=== PATIENT | male | born 1965 | race Caucasian/White ===

== ENCOUNTER 2016-12-07 09:04 | Inpatient (IN) | payer OTHER ==
[~2016-12-07] VITALS: Ht 177.8 cm; Wt 80.7 kg
[2016-12-07] VITALS (10 sets, daily range): BP systolic 101–123; BP diastolic 59–70; PULSE 69–87; RESP 15–18; TEMP 97.6–100.1; O2SAT 95–100
[2016-12-07] MEDS ORDERED: SODIUM CHLOR 0.9% 1000 ML INJ 1,000 ML IV ONE ×2 (09:40→14:30)
[2016-12-07] MEDS ORDERED: DEXAMETHASONE SOD PHOS 20 MG/5 ML VIAL IV PUSH ONE (09:45)
[2016-12-07] MEDS ORDERED: SODIUM CHLORIDE 0.9% FLUSH 5 ML FLUSH IVF PRN (09:45)
[2016-12-07] MEDS ORDERED: diphenhydrAMINE HCL 50 MG/ML VIAL IV PUSH ONE (09:45)
[2016-12-07] MEDS ORDERED: METOCLOPRAMIDE HCL 10 MG/2 ML VIAL IV PUSH ONE (09:45)
[2016-12-07 10:19] LABS: AUTOMATED NEUTROPHIL # 4.1 TH/MM3 (1.8-7.7); BASOPHIL % 0.6 % (0.0-2.0); EOSINOPHIL % 0.3 % (0.0-4.0); HEMATOCRIT 39.4 % (39.0-51.0); HEMO FLAGS DIFF FINAL; LYMPH % 15.2 % (9.0-44.0); LYMPHOCYTE # 0.9 TH/MM3 (1.0-4.8); MEAN CELL VOLUME 85.6 FL (80.0-100.0); MEAN CORPUSCULAR HEMOGLOBIN 29.7 PG (27.0-34.0); MEAN CORPUSCULAR HGB CONC 34.7 % (32.0-36.0); MONO % 12.1 % (0.0-8.0); NEUT % 71.8 % (16.0-70.0); PLATELET COUNT 171 TH/MM3 (150-450); RED BLOOD COUNT 4.61 MIL/MM3 (4.50-5.90); RED CELL DISTRIBUTION WIDTH 13.4 % (11.6-17.2); WHITE BLOOD COUNT 5.7 TH/MM3 (4.0-11.0)
[2016-12-07 10:27] LABS: APTT (PATIENT) 30.6 SEC (24.3-30.1); PROTHROMBIN TIME - PATIENT 11.1 SEC (9.8-11.6)
--- NOTE | 2016-12-07 10:32 | PD ---
HPI Chief Complaint: Fever Time Seen by Provider: 09:31 Travel History International Travel<30 days: Yes Contact w/Intl Traveler<30days: Yes Name of Country Traveled to: [facility] Traveled to known affect area: Yes History of Present Illness HPI Patient is a 51-year-old male who presents emergency room with complaints of fevers for the past 5 days. Patient reports that he came home from [facility] last night, reports that he has been having increased fevers and chills at night sweats for the past 5 days. Patient reports that he had been to [facility] for about a month but was in the city on the and got "bit up" pretty badly. Reports that he was not wearing any bug sprat at that time. Reports that he went to the local hospital when his symptoms began - reports that they ordered labs and told him that everything was normal and sent him home. Patient was concerned as he would have tmax of 103 at some times, so they ended their trip early and came home to [facility]. Patient reports that he has been having nonspecific headaches, body aches and myalgias, reports concern for possible mosquito illness. [facility] Past Medical History Medical History: Denies Significant Hx ?: Not Past Surgical History Surgical History: No Previous Surgery Social History Alcohol Use: Yes (occ) Tobacco Use: No Substance Use: No Allergies-Medications (Allergen,Severity, Reaction): Coded Allergies: No Known Allergies (Unverified , 12/07/16) Reported Meds & Prescriptions Reported Meds & Active Scripts Active No Active Prescriptions or Reported Medications Review of Systems General / Constitutional: Positive: Fever Eyes: No: Visual changes HENT: Positive: Headaches, No: Neck Pain Cardiovascular: No: Chest Pain or Discomfort Respiratory: Positive: Cough, No: Shortness of Breath Gastrointestinal: No: Abdominal Pain Genitourinary: No: Dysuria Musculoskeletal: Positive: Myalgias, Arthralgias, No: Pain Skin: No Rash Neurologic: No: Weakness Psychiatric: No: Depression Endocrine: No: Polydipsia Hematologic/Lymphatic: No: Easy Bruising Physical Exam Narrative GENERAL: No acute distress, nontoxic SKIN: Warm and dry. No petechia or purpura on exam. NO rash HEAD: Atraumatic. Normocephalic. EYES: Pupils equal and round. No scleral icterus. No injection or drainage. ENT: No nasal bleeding or discharge. Mucous membranes pink and moist. NECK: Trachea midline. No JVD. CARDIOVASCULAR: Regular rate and rhythm. No murmur appreciated. RESPIRATORY: No accessory muscle use. Clear to auscultation. Breath sounds equal bilaterally. GASTROINTESTINAL: Abdomen soft, non-tender, nondistended. Hepatic and splenic margins not palpable. MUSCULOSKELETAL: No obvious deformities. No clubbing. No cyanosis. No edema. NEUROLOGICAL: Awake and alert. No obvious cranial nerve deficits. Motor grossly within normal limits. Normal speech. negative for Kernig's and Babinski 's sign. PSYCHIATRIC: Appropriate mood and affect; insight and judgment normal. Data Data Last Documented VS Vital Signs Date Time Temp Pulse Resp B/P Pulse Ox O2 Delivery O2 Flow Rate FiO2 12/07/16 14:33 69 17 101/60 100 Room Air 12/07/16 13:39 99.0 Orders Complete Blood Count With Diff (12/07/16 09:40) Comprehensive Metabolic Panel (12/07/16 09:40) Prothrombin Time / Inr (Pt) (12/07/16 09:40) Act Partial Throm Time (Ptt) (12/07/16 09:40) Blood Culture (12/07/16 09:40) Ecg Monitoring (12/07/16 09:40) Iv Access Insert/Monitor (12/07/16 09:40) Oximetry (12/07/16 09:40) Sodium Chloride 0.9% Flush (Ns Flush) (12/07/16 09:45) Sodium Chlor 0.9% 1000 Ml Inj (Ns 1000 M (12/07/16 09:40) Influenzae A/B Antigen (12/07/16 09:40) Malaria (12/07/16 09:40) Dexamethasone Inj (Decadron Inj) (12/07/16 09:45) Metoclopramide Inj (Reglan Inj) (12/07/16 09:45) Diphenhydramine Inj (Benadryl Inj) (12/07/16 09:45) Ct Brain W/O Iv Contrast(Rout) (12/07/16 11:33) Csf Cell Count + Differential (12/07/16 13:46) Glucose, Csf (12/07/16 13:46) Total Protein, Csf (12/07/16 13:46) Csf Cryptococcus Antigen (12/07/16 13:46) Sodium Chlor 0.9% 1000 Ml Inj (Ns 1000 M (12/07/16 14:30) Csf Culture And Gram Stain (12/07/16 15:07) Consult Infectious Disease (12/07/16 ) Drug Screen, Random Urine (12/07/16 16:28) Rickettsia Abs (12/07/16 16:37) (Hub Use Only)Inp Phy Cons/Ref (12/07/16 ) Labs Laboratory Tests Test 12/07/16 12/07/16 09:55 14:20 White Blood Count 5.7 TH/MM3 Red Blood Count 4.61 MIL/MM3 Hemoglobin 13.7 GM/DL Hematocrit 39.4 % Mean Corpuscular Volume 85.6 FL Mean Corpuscular Hemoglobin 29.7 PG Mean Corpuscular Hemoglobin 34.7 % Concent Red Cell Distribution Width 13.4 % Platelet Count 171 TH/MM3 Mean Platelet Volume 7.4 FL Neutrophils (%) (Auto) 71.8 % Lymphocytes (%) (Auto) 15.2 % Monocytes (%) (Auto) 12.1 % Eosinophils (%) (Auto) 0.3 % Basophils (%) (Auto) 0.6 % Neutrophils # (Auto) 4.1 TH/MM3 Lymphocytes # (Auto) 0.9 TH/MM3 Monocytes # (Auto) 0.7 TH/MM3 Eosinophils # (Auto) 0.0 TH/MM3 Basophils # (Auto) 0.0 TH/MM3 CBC Comment DIFF FINAL Differential Comment Prothrombin Time 11.1 SEC Prothromb Time International 1.0 RATIO Ratio Activated Partial 30.6 SEC Thromboplast Time Sodium Level 138 MEQ/L Potassium Level 3.8 MEQ/L Chloride Level 104 MEQ/L Carbon Dioxide Level 25.5 MEQ/L Anion Gap 9 MEQ/L Blood Urea Nitrogen 8 MG/DL Creatinine 1.08 MG/DL Estimat Glomerular Filtration 73 ML/MIN Rate Random Glucose 105 MG/DL Calcium Level 8.4 MG/DL Total Bilirubin 0.5 MG/DL Aspartate Amino Transf 15 U/L (AST/SGOT) Alanine Aminotransferase 30 U/L (ALT/SGPT) Alkaline Phosphatase 56 U/L Total Protein 6.6 GM/DL Albumin 3.2 GM/DL CSF Volume (Tube 1) 2.0 ML CSF Supernatant Color (tube 1) CLEAR CSF Gross Blood (Tube 1) 0 CSF Volume (Tube 2) 1.6 ML CSF Supernatant Color (tube 2) CLEAR CSF Gross Blood (Tube 2) 0 CSF Volume (Tube 3) 1.5 ML CSF Supernatant Color (tube 3) CLEAR CSF Gross Blood (Tube 3) 0 CSF Volume (Tube 4) 2.5 ML CSF Supernatant Color (tube 4) CLEAR CSF Gross Blood (Tube 4) 0 CSF WBC (Tube 4) 11 /MM3 CSF RBC (Tube 4) 8 /MM3 CSF Neutrophils 2 % CSF Lymphocytes 32 % CSF Monocytes 66 % CSF Glucose 62 MG/DL CSF Total Protein 35.9 MG/DL MDM Medical Decision Making Medical Screen Exam Complete: Yes Emergency Medical Condition: Yes Interpretation(s) EKG at 1641, NSR at 77bpm, qt/qtc: 373/405, no acute st or t wave changes Vital Signs Date Time Temp Pulse Resp B/P Pulse Ox O2 Delivery O2 Flow Rate FiO2 12/07/16 09:50 99 Room Air 12/07/16 09:31 100.1 82 15 114/69 95 Room Air 12/07/16 09:26 16 12/07/16 09:13 100.1 87 18 112/70 97 Differential Diagnosis Malaria, meningitis, pneumonia, influenza, ZIKA virus, viral syndrome, dengue fever, chikugunya, yellow fever Narrative Course Patient is a 51-year-old male who presents to emergency room for evaluation of fevers, chills, myalgias, headache, for the past 5 days. Patient reports that he was in [facility] for the past month, reports that on the he was bit by mosquitoes and reports that he is concerned for possible zika vs malaria. Overall, patient is nontoxic, patient with no meningismus on evaluation. Patient with negative Kernig and Babinski sign. Plan to obtain CT of the head, will treat for cephalgia. Labs as well as x-ray chest ordered. Malaria screening ordered. We'll continue to monitor patient. CBC WBC 5.7 Hemoglobin 13.7 Hematocrit 39.4 Platelets 171 BMP Sodium 138 Chloride 104 Potassium 3.8 Carbon dioxide 25.[address] head: no acute intracranial findings Malaria smear: preliminary neg for blood parasites Influenza: neg for influenza A & B Patient with headache and fever, discussed need for LP for evaluation of possible meningitis. LP Risks and benefits reviewed with patient - patient gives oral and verbal consent for LP. case reviewed with Dr Joe, request that patient be admitted overnight for further workup Critical Care Narrative Aggregate critical care time was 45 minutes. Time to perform other separately billable procedures was not included in the critical care time. My time did not include minutes spent treating any other patients simultaneously or on activities that did not directly contribute to the patient's treatment. The services I provided to this patient were to treat and/or prevent clinically significant deterioration that could result in: , decompensation, deterioration I provided critical care services requiring my management, as noted below: Chart data review, documentation time, medication orders and management, vital sign assessments/reviewing monitor data, ordering and reviewing lab tests, ordering and interpreting/reviewing x-rays and diagnostic studies, care of the patient and discussion of the patient with the admitting physicians. Physician Communication Physician Communication case reviewed with ID: Dr. Bowman case reviewed with family practice resident: Dr Richards - accepts pt to service Diagnosis Primary Impression: Fever of unknown origin Admitting Information Admitting Physician Requests: Observation Patient Instructions: General Instructions Scripts No Active Prescriptions or Reported Meds Sabine Ruffin DO Dec 07, 2016 10:32
[2016-12-07 10:39] LABS: ALT (GPT) 30 U/L (12-78); ANION GAP 9 MEQ/L (5-15); AST (GOT) 15 U/L (15-37); BICARBONATE 25.5 MEQ/L (21.0-32.0); BLOOD UREA NITROGEN 8 MG/DL (7-18); CHLORIDE 104 MEQ/L (98-107); GLOMERULAR FILTRATION RATE 73 ML/MIN (>89); POTASSIUM 3.8 MEQ/L (3.5-5.1); SODIUM (NA) 138 MEQ/L (136-145)
[2016-12-07 10:41] LABS: ALKALINE PHOSPHATASE 56 U/L (45-117); TOTAL BILIRUBIN ADULT 0.5 MG/DL (0.2-1.0)
--- NOTE | 2016-12-07 12:20 | RADRPT ---
EXAM DATE/TIME: 12/07/2016 12:08 [place] COMPARISON: No previous studies available for comparison. INDICATIONS : Fever with neck and back pain, cephalgia. RADIATION DOSE: 46.40 CTDIvol (mGy) MEDICAL HISTORY : None SURGICAL HISTORY : None. ENCOUNTER: Initial ACUITY: 1 week PAIN SCALE: 5/10 LOCATION: neck TECHNIQUE: Multiple contiguous axial images were obtained of the head. Using automated exposure control and adj ustment of the mA and/or kV according to patient size, radiation dose was kept as low as reasonably a chievable to obtain optimal diagnostic quality images. FINDINGS: CEREBRUM: The ventricles are normal for age. No evidence of midline shift, mass lesion, hemorrhage or acute in farction. No extra-axial fluid collections are seen. POSTERIOR FOSSA: The cerebellum and brainstem are intact. The 4th ventricle is midline. The cerebellopontine angle i s unremarkable. EXTRACRANIAL: The visualized portion of the orbits is intact. SKULL: The calvaria is intact. No evidence of skull fracture. CONCLUSION: Unremarkable exam. Bean Stevenson MD on December 07, 2016 at 12:18 Board Certified Radiologist. This report was verified electronically.
--- NOTE | 2016-12-07 14:32 | PD ---
Physical Exam Date Seen by Provider: Dec 07, 2016 Time Seen by Provider: 14:22 Data Data Last Documented VS Vital Signs Date Time Temp Pulse Resp B/P Pulse Ox O2 Delivery O2 Flow Rate FiO2 12/07/16 13:39 99.0 78 16 120/68 100 Room Air Orders Complete Blood Count With Diff (12/07/16 09:40) Comprehensive Metabolic Panel (12/07/16 09:40) Prothrombin Time / Inr (Pt) (12/07/16 09:40) Act Partial Throm Time (Ptt) (12/07/16 09:40) Blood Culture (12/07/16 09:40) Ecg Monitoring (12/07/16 09:40) Iv Access Insert/Monitor (12/07/16 09:40) Oximetry (12/07/16 09:40) Sodium Chloride 0.9% Flush (Ns Flush) (12/07/16 09:45) Sodium Chlor 0.9% 1000 Ml Inj (Ns 1000 M (12/07/16 09:40) Influenzae A/B Antigen (12/07/16 09:40) Malaria (12/07/16 09:40) Dexamethasone Inj (Decadron Inj) (12/07/16 09:45) Metoclopramide Inj (Reglan Inj) (12/07/16 09:45) Diphenhydramine Inj (Benadryl Inj) (12/07/16 09:45) Ct Brain W/O Iv Contrast(Rout) (12/07/16 11:33) Csf Cell Count + Differential (12/07/16 13:46) Glucose, Csf (12/07/16 13:46) Total Protein, Csf (12/07/16 13:46) Csf Cryptococcus Antigen (12/07/16 13:46) Labs Laboratory Tests Test 12/07/16 09:55 White Blood Count 5.7 TH/MM3 Red Blood Count 4.61 MIL/MM3 Hemoglobin 13.7 GM/DL Hematocrit 39.4 % Mean Corpuscular Volume 85.6 FL Mean Corpuscular Hemoglobin 29.7 PG Mean Corpuscular Hemoglobin 34.7 % Concent Red Cell Distribution Width 13.4 % Platelet Count 171 TH/MM3 Mean Platelet Volume 7.4 FL Neutrophils (%) (Auto) 71.8 % Lymphocytes (%) (Auto) 15.2 % Monocytes (%) (Auto) 12.1 % Eosinophils (%) (Auto) 0.3 % Basophils (%) (Auto) 0.6 % Neutrophils # (Auto) 4.1 TH/MM3 Lymphocytes # (Auto) 0.9 TH/MM3 Monocytes # (Auto) 0.7 TH/MM3 Eosinophils # (Auto) 0.0 TH/MM3 Basophils # (Auto) 0.0 TH/MM3 CBC Comment DIFF FINAL Differential Comment Prothrombin Time 11.1 SEC Prothromb Time International 1.0 RATIO Ratio Activated Partial 30.6 SEC Thromboplast Time Sodium Level 138 MEQ/L Potassium Level 3.8 MEQ/L Chloride Level 104 MEQ/L Carbon Dioxide Level 25.5 MEQ/L Anion Gap 9 MEQ/L Blood Urea Nitrogen 8 MG/DL Creatinine 1.08 MG/DL Estimat Glomerular Filtration 73 ML/MIN Rate Random Glucose 105 MG/DL Calcium Level 8.4 MG/DL Total Bilirubin 0.5 MG/DL Aspartate Amino Transf 15 U/L (AST/SGOT) Alanine Aminotransferase 30 U/L (ALT/SGPT) Alkaline Phosphatase 56 U/L Total Protein 6.6 GM/DL Albumin 3.2 GM/DL [facility] Supervised Visit with YUE: Yes Narrative Course Dr. Ruffin initially saw this patient. Please see her note for full H&P. Briefly, this is a 51-year-old male who presents to the ED for evaluation of headache after traveling to [facility]. Dr. Ruffin supervised as I I performed the lumbar puncture on this patient. Please see my procedure note for details. Patient tolerated procedure well. He was placed in supine position on the ED stretcher post procedure. Dr. Ruffin maintains care this patient. Please see her note for disposition. Procedures Procedure Narrative LUMBAR PUNCTURE: The patient was placed in upright position. The lumbar area of the back was prepped with Betadine and sterilely draped. The L4-L5 interspace was infiltrated with 1% lidocaine plain. Number 20 gauge LP needle was placed in the interspace. Opening pressure deferred. Number 5 milliliters of clear CSF were obtained. Patient tolerated procedure well. Scripts No Active Prescriptions or Reported Meds Jessica Hare Dec 07, 2016 14:32
[2016-12-07 15:36] LABS: GROSS BLOOD TUBE #1 0 (0); GROSS BLOOD TUBE #2 0 (0); GROSS BLOOD TUBE #3 0 (0); GROSS BLOOD TUBE #4 0 (0); SUPERNATE COLOR TUBE #1 CLEAR (CLEAR); SUPERNATE COLOR TUBE #2 CLEAR (CLEAR); SUPERNATE COLOR TUBE #3 CLEAR (CLEAR); SUPERNATE COLOR TUBE #4 CLEAR (CLEAR); VOLUME TUBE # 2 1.6 ML; VOLUME TUBE # 3 1.5 ML; VOLUME TUBE # 4 2.5 ML; WBC TUBE #4 11 /MM3 (0-10)
[2016-12-07 16:31] LABS: CSF LYMPHOCYTES 32 %; CSF MONOCYTES 66 %; CSF NEUTROPHILS 2 %
--- NOTE | 2016-12-07 17:12 | HHI.HP ---
HPI Service Family Medicine Primary Care Physician Non-Staff Admission Diagnosis fever of unknown origin Diagnoses: International Travel<30 Days: Yes Contact w/Intl Traveler<30days: Yes Name of Country Traveled to: [facility] Known Affected Area: Yes History of Present Illness Patient is a 51-year-old man with a 7 day history of fever. He reports associated symptoms of neck, back, joint pain, and cough. He was in [facility] for about a month prior to presenting to the emergency department. He and his were there just visiting for vacation. [place]. Then during their 2nd week, [place], through [place]. In a marshy climate, they went to dinner without bug-spray, got bitten by mosquitos, then started using bug- spray. Pt used alcohol and calamine lotion on bug bites, which seemed to resolve within 5-7 days. [place] then went [place]. Last Wednesday, patient reports that his first symptom was lethargy, and that he felt like laying around all day; he noted a slight fever. Wednesday night, patient reports one episode of foul-smelling loose stool (again on , since then constipated). At that time, he started getting headache, worse fever. On Wednesday , the fever got bad, but they were unable take his temperature. On Wednesday, he experienced sweating, chills, soaked through his clothes and sheets, while feeling freezing. On Wednesday, he went to a local hospital in [facility], where they noted a fever of 103F, but an otherwise negative workup: They noted neutrophils of 75%, lymphocytes 12%, monocytes of 13%. Wednesday and Wednesday, patient experienced more of the same with fever, aches, and pains. Patient denies any rash. He reports that he has had a continuous headache since Wednesday. Patient endorses joint pain but no swelling. Patient reports headache behind his eyes, cervical spine ache. He developed a cough with deep respirations, which he attributes to some pleuritic chest pain. He took Tylenol for his symptoms, which helps a little. (Bean Richards MD R1) Review of Systems Constitutional: COMPLAINS OF: Fatigue, Fever, Chills, Dizziness (with standing) , Night Sweats Endocrine: DENIES: Polydipsia, Polyuria Eyes: COMPLAINS OF: Photosensitivity, DENIES: Blurred vision, Diplopia, Vision loss, Double Vision Ears, nose, mouth, throat: COMPLAINS OF: Sinus Pain, DENIES: Hearing loss, Vertigo, Throat pain, Running Nose Respiratory: COMPLAINS OF: Cough, DENIES: Wheezing, Shortness of breath Cardiovascular: DENIES: Chest pain, Palpitations, Syncope, Dyspnea on Exertion , Lower Extremity Edema, Orthopnea Gastrointestinal: COMPLAINS OF: Constipation (resolved), Diarrhea (resolved), DENIES: Abdominal pain, Black stools, Bloody stools, Nausea, Vomiting Genitourinary: DENIES: Dysuria Musculoskeletal: COMPLAINS OF: Joint pain, Stiffness, Back pain, Neck pain, DENIES: Muscle aches, Joint Swelling Integumentary: DENIES: Pruritus, Rash Hematologic/lymphatic: DENIES: Bruising, Lymphadenopathy Neurologic: COMPLAINS OF: Headache, DENIES: Localized weakness, Paresthesias, Seizures Psychiatric: DENIES: Mood changes (Bean Richards MD R1) Past Family Social History Past Medical History Lyme disease treated with abx Broke out in hives head-to-toe 3 months ago. W/u with special order jeweler. Years ago, bee sting caused massive swelling in 2000. Then had full body hives. Went to malt house kiln operator who said it is not a food allergy. Correlates with stress. Past Surgical History none Reported Medications None. (Bean Richards MD R1) Allergies: Coded Allergies: No Known Allergies (Unverified , 12/07/16) Family History Dad had RA, heart disease. Mom allergic to PCN, has DM. 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 Alcohol 1qd. No drugs, tobacco. (Bean Richards MD R1) Physical Exam Vital Signs Vital Signs Date Time Temp Pulse Resp B/P Pulse Ox O2 Delivery O2 Flow Rate FiO2 12/07/16 14:33 69 17 101/60 100 Room Air 12/07/16 13:39 99.0 78 16 120/68 100 Room Air 12/07/16 09:50 99 Room Air 12/07/16 09:31 100.1 82 15 114/69 95 Room Air 12/07/16 09:26 16 12/07/16 09:13 100.1 87 18 112/70 97 Physical Exam GENERAL: No acute distress, nontoxic SKIN: Warm and dry. No petechia or purpura on exam. NO rash. 2-3 x 2-3mm scabs on right medial bicep and forearem. HEAD: Atraumatic. Normocephalic. EYES: Pupils equal and round. No scleral icterus. No injection or drainage. ENT: No nasal bleeding or discharge. Mucous membranes pink and moist. NECK: Trachea midline. No JVD. CARDIOVASCULAR: Regular rate and rhythm. No murmur appreciated. RESPIRATORY: No accessory muscle use. Clear to auscultation. Breath sounds equal bilaterally. GASTROINTESTINAL: Abdomen soft, non-tender, nondistended. Hepatic and splenic margins not palpable. MUSCULOSKELETAL: No obvious deformities. No clubbing. No cyanosis. No edema. NEUROLOGICAL: Awake and alert. No obvious cranial nerve deficits. Motor grossly within normal limits. Normal speech. negative for Kernig's and Babinski 's sign. PSYCHIATRIC: Appropriate mood and affect; insight and judgment normal. Laboratory Laboratory Tests Test 12/07/16 12/07/16 09:55 14:20 White Blood Count 5.7 Red Blood Count 4.61 Hemoglobin 13.7 Hematocrit 39.4 Mean Corpuscular Volume 85.6 Mean Corpuscular Hemoglobin 29.7 Mean Corpuscular Hemoglobin 34.7 Concent Red Cell Distribution Width 13.4 Platelet Count 171 Mean Platelet Volume 7.4 Neutrophils (%) (Auto) 71.8 Lymphocytes (%) (Auto) 15.2 Monocytes (%) (Auto) 12.1 Eosinophils (%) (Auto) 0.3 Basophils (%) (Auto) 0.6 Neutrophils # (Auto) 4.1 Lymphocytes # (Auto) 0.9 Monocytes # (Auto) 0.7 Eosinophils # (Auto) 0.0 Basophils # (Auto) 0.0 CBC Comment DIFF FINAL Differential Comment Prothrombin Time 11.1 Prothromb Time International 1.0 Ratio Activated Partial 30.6 Thromboplast Time Sodium Level 138 Potassium Level 3.8 Chloride Level 104 Carbon Dioxide Level 25.5 Anion Gap 9 Blood Urea Nitrogen 8 Creatinine 1.08 Estimat Glomerular Filtration 73 Rate Random Glucose 105 Calcium Level 8.4 Total Bilirubin 0.5 Aspartate Amino Transf 15 (AST/SGOT) Alanine Aminotransferase 30 (ALT/SGPT) Alkaline Phosphatase 56 Total Protein 6.6 Albumin 3.2 CSF Volume (Tube 1) 2.0 CSF Supernatant Color (tube 1) CLEAR CSF Gross Blood (Tube 1) 0 CSF Volume (Tube 2) 1.6 CSF Supernatant Color (tube 2) CLEAR CSF Gross Blood (Tube 2) 0 CSF Volume (Tube 3) 1.5 CSF Supernatant Color (tube 3) CLEAR CSF Gross Blood (Tube 3) 0 CSF Volume (Tube 4) 2.5 CSF Supernatant Color (tube 4) CLEAR CSF Gross Blood (Tube 4) 0 CSF WBC (Tube 4) 11 CSF RBC (Tube 4) 8 CSF Neutrophils 2 CSF Lymphocytes 32 CSF Monocytes 66 CSF Glucose 62 CSF Total Protein 35.9 Date/Time Procedure Status Source Growth 12/07/16 14:20 Gram Stain - Final Resulted Cerebral Spinal Fluid Lumbar Puncture 12/07/16 14:20 CSF Culture Resulted Cerebral Spinal Fluid Lumbar Puncture Pending 12/07/16 09:55 Malaria Smear (IAN) - Final Complete Blood Peripheral NEGATIVE - NO BLOOD PARASITES SEEN.... 12/07/16 09:55 Aerobic Blood Culture Received Blood Peripheral Pending 12/07/16 09:55 Anaerobic Blood Culture Received Blood Peripheral Pending 12/07/16 09:50 Influenza Types A,B Antigen (IAN) - Final Complete Nasal Aspirate NEGATIVE FOR FLU A AND B ANTIGEN.... (Bean Richards MD R1) Result Diagram: 12/07/16 0955 12/07/16 0955 Imaging Last Impressions Head CT 12/07/16 1133 Signed Impressions: Service Date/Time: Wednesday, December 07, 2016 12:08 - CONCLUSION: Unremarkable exam. Bean Stevenson MD Course In emergency department, patient had malaria smear, influenza A/B antigen, blood culture, APTT, PT/INR, CMP, CBC, Benadryl, Reglan, Decadron IV cocktail for headache, CT brain without IV contrast, lumbar puncture with CSF cryptococcus antigen, CSF total protein, CSF glucose, CSF cell count and differential, CSF culture and Gram stain, UDS, rickettsia antibodies, infectious disease consult. (Bean Richards MD R1) Assessment and Plan Assessment and Plan 51-year-old man with no significant past medical history the history significant for innumerable bug bites acquired in [facility] presents with fever of unknown origin up to a high of 103, neck, back, joint pain, cough, chills, night sweats. Differential diagnosis includes arthropod borne diseases, food and waterborne diseases, other infections, autoimmune etiologies, allergic/ immune etiologies. Placed in observation for supportive treatment, infectious disease consult, pending workup. Code Status Full code Discussed Condition With wdw Dr. Bass. (Bean Richards MD R1) Problem List: (1) Fever of unknown origin Status: Acute Plan: 51-year-old man with no significant past medical history the history significant for innumerable bug bites acquired in [facility] presents with fever of unknown origin up to a high of 103, neck, back, joint pain, cough, chills, night sweats. Differential diagnosis includes arthropod borne diseases, food and waterborne diseases, other infections, autoimmune etiologies, allergic/ immune etiologies. See below for list of differential diagnosis. Head CT unremarkable. Patient had lumbar puncture in the emergency department, which was not concerning for meningitis. Malaria smear negative. Infectious disease consult Follow-up serologies including Gurnee spotted fever, rickettsia, typhus fever Follow-up CSF culture Follow-up blood culture Place in observation Follow-up UDS NSR IV at 100 mL per hour Tylenol 650 mg by mouth every 4 hours when necessary for pain, temperature, headache Motrin 400 mg by mouth every 4 hours when necessary for muscle pain Monitor vital signs Monitor intake and output Differential diagnosis includes: ARTHROPOD-BORNE DISEASES * Malaria * Dengue fever * Chikungunya * Yellow fever * Zika virus * Leishmaniasis * Chagas disease * Gurnee spotted fever and other rickettsioses * Ehrlichiosis FOODBORNE AND WATERBORNE DISEASES * Travelers' diarrhea * Typhoid * Hepatitis A * Cholera * Giardiasis and cyclosporiasis * Leptospirosis OTHER INFECTIONS * Fungal infections * Sexually transmitted diseases * Hantavirus * Myiasis * Melioidosis (2) Nutrition, metabolism, and development symptoms Status: Acute Plan: Fluids: Normal saline IV at 100 ml per hour Electrolytes: Monitor and replete as necessary Nutrition: Regular basic diet GI ppx: Not currently indicated (3) No contraindication to deep vein thrombosis (DVT) prophylaxis Status: Acute Plan: Lovenox 40 mg subcutaneous every 24 hours SCDs bilaterally (Bean Richards MD R1) Bean Richards MD R1 Dec 07, 2016 17:12 Samara Bass MD Dec 08, 2016 15:34 Bean Richards MD R1 Dec 07, 2016 17:12 Bean Richards MD R1 Dec 07, 2016 17:12
[2016-12-07] MEDS ORDERED: METOCLOPRAMIDE HCL 10 MG/2 ML VIAL IV PUSH PRN (18:15)
[2016-12-07] MEDS ORDERED: ONDANSETRON HCL 4 MG/2 ML VIAL IVP PRN (18:15)
[2016-12-07] MEDS ORDERED: NALOXONE HCL 0.4 MG/ML AMP IV PRN (18:15)
[2016-12-07] MEDS ORDERED: SODIUM CHLORIDE 0.9% FLUSH 5 ML FLUSH FLUSH PRN (18:15)
[2016-12-07] MEDS ORDERED: TEMAZEPAM 15 MG CAP PO PRN (18:15)
[2016-12-07] MEDS: SODIUM CHLOR 0.9% 1000 ML INJ 1,000 ML IV SCH (18:50)
[2016-12-07] MEDS: ENOXAPARIN SODIUM 40 MG/0.4 ML SYRINGE SQ SCH (20:20)
[2016-12-07] MEDS: SODIUM CHLORIDE 0.9% FLUSH 5 ML FLUSH FLUSH SCH (20:59)
[2016-12-07 21:59] LABS: AMPHETAMINE, URINE NEG (NEG); BARBITURATES, URINE NEG (NEG); COCAINE, URINE NEG (NEG)
[2016-12-08] MEDS: DOXYCYCLINE INJ 100 MG in SODIUM CHLORIDE 0.9% INJ 100 ML IV SCH ×2 (00:12→11:36)
[2016-12-08 01:31] VITALS: BP 112/73; PULSE 72; RESP 18; TEMP 97.8; O2SAT 98
[2016-12-08] MEDS: SODIUM CHLOR 0.9% 1000 ML INJ 1,000 ML IV SCH ×3 (04:06→12:10)
[2016-12-08 05:21] VITALS: BP 115/72; PULSE 85; RESP 18; TEMP 98.8; O2SAT 97
[2016-12-08 06:09] LABS: AUTOMATED NEUTROPHIL # 5.1 TH/MM3 (1.8-7.7); BASOPHIL % 0.2 % (0.0-2.0); HEMATOCRIT 39.4 % (39.0-51.0); HEMO FLAGS DIFF FINAL; LYMPH % 15.9 % (9.0-44.0); LYMPHOCYTE # 1.1 TH/MM3 (1.0-4.8); MEAN CELL VOLUME 86.3 FL (80.0-100.0); MEAN CORPUSCULAR HEMOGLOBIN 29.2 PG (27.0-34.0); MEAN CORPUSCULAR HGB CONC 33.9 % (32.0-36.0); MONO % 9.2 % (0.0-8.0); NEUT % 74.7 % (16.0-70.0); PLATELET COUNT 177 TH/MM3 (150-450); RED BLOOD COUNT 4.57 MIL/MM3 (4.50-5.90); RED CELL DISTRIBUTION WIDTH 13.4 % (11.6-17.2); WHITE BLOOD COUNT 6.9 TH/MM3 (4.0-11.0)
[2016-12-08 08:00] VITALS: BP 105/65; PULSE 68; RESP 17; TEMP 98.2; O2SAT 97
[2016-12-08] MEDS: SODIUM CHLORIDE 0.9% FLUSH 5 ML FLUSH FLUSH SCH ×2 (08:18→21:13)
--- NOTE | 2016-12-08 09:15 | EKG ---
Date Performed: 12/07/2016 Time Performed: 16:41:52 PTAGE: 51 years EKG: Sinus rhythm POSSIBLE RIGHT VENTRICULAR CONDUCTION DELAY BORDERLINE ECG NO PREVIOUS TRACING DOCTOR: Rashel Whitten Interpretating Date/Time 12/08/2016 09:14:11
[2016-12-08 10:30] LABS: POTASSIUM 4.2 MEQ/L (3.5-5.1)
[2016-12-08 10:44] LABS: CREATINE KINASE 67 U/L (39-308)
[2016-12-08 12:00] VITALS: BP 110/64; PULSE 75; RESP 18; TEMP 98.4; O2SAT 94
--- NOTE | 2016-12-08 13:29 | PD.ID.CON ---
History of Present Illness Service Infectious disease Consult Requested By Dr. Richards//. Reason for Consult Evaluation and management of fever of unknown origin in a patient with recent travel to [place]. Primary Care Physician Non-Staff Diagnoses: History of Present Illness is a 51-year-old male with past medical history significant for Lyme's disease, Amoebiasis,Giardiasis related to travel. Of note patient is an avid traveler and has traveled extensively to [facility], [facility], [facility], [facility], [facility], [place]. Patient reports having had Lyme' s disease as well as Amoebiasis approximately 20 years back and having fully recovered from both these illnesses. With this background patient reports that on November 12, 2016 patient traveled to [facility]. He reports that he initially traveled from [place] up until the . In November 17 he started traveling towards to remote areas such as [facility] and [facility]. Patient reports having mosquito bites and did not use repellents at that time. He reports having no symptoms up until November 25 after arriving in in the remote place called [facility]. They rented a beach side home and paved out a path towards the beach. In doing so he also had raked leaves and reports that he did most of this process. He reports on November 26 or November 27 he started feeling sick progressively getting lethargic with lack of any interest in activity due to extreme fatigue. By Dec 02 and patient started having fever and chills and on 04 December patient reported to a local hospital. He has a CBC report on his phone which she shared with me. WBC count is 5.3, H&H 15.5/ 46.4, platelets 186. With a neutrophil predominance at 75%. Patient reports that he was told to take Tylenol and was discharged. He continued to have fever but despite that he was okay to travel back to the [place]. After arriving in the last patient continues to have fever with chills, night sweats, retro-orbital pain, and feeling of unwellness. He now reports that he has a cough for the last few days and experiences chest discomfort on coughing or deep inspiration. 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 Patient traveled as stated above and has been in the [place] region for approximately a period of one month. Patient denies any satellite lesions on his skin. Patient denies any generalized maculopapular rash on his skin. He denies any petechial rash. Patient denies any shortness of breath or hemoptysis. Patient reports headaches but denies any visual changes or floaters. No ear pain or discharge. Patient consented to HIV testing. Infectious disease is consulted for evaluation and management of fever of unknown origin in a patient with recent travel to [place]. Review of Systems ROS Limitations: Poor Historian Constitutional: COMPLAINS OF: Diaphoretic episodes, Fever, Chills, Night Sweats , DENIES: Fatigue, Weight gain, Weight loss, Dizziness, Change in appetite Endocrine: DENIES: Heat/cold intolerance, Polydipsia, Polyuria, Polyphagia Eyes: DENIES: Blurred vision, Diplopia, Eye inflammation, Eye pain, Vision loss , Photosensitivity, Double Vision Ears, nose, mouth, throat: DENIES: Tinnitus, Hearing loss, Vertigo, Nasal discharge, Oral lesions, Throat pain, Hoarseness, Ear Pain, Running Nose, Epistaxis, Sinus Pain, Toothache, Odynophagia Respiratory: COMPLAINS OF: Cough, DENIES: Apneas, Snoring, Wheezing, Hemoptysis, Sputum production, Shortness of breath Cardiovascular: COMPLAINS OF: Chest pain, DENIES: Palpitations, Syncope, Dyspnea on Exertion, PND, Lower Extremity Edema, Orthopnea, Claudication Gastrointestinal: DENIES: Abdominal pain, Black stools, Bloody stools, Constipation, Diarrhea, Nausea, Vomiting, Difficulty Swallowing, Anorexia Genitourinary: DENIES: Sexual dysfunction, Urinary frequency, Urinary incontinence, Urgency, Hematuria, Dysuria, Nocturia, Penile Discharge, Testicular Pain, Testicular Swelling Musculoskeletal: DENIES: Joint pain, Muscle aches, Stiffness, Joint Swelling, Back pain, Neck pain Integumentary: DENIES: Abnormal pigmentation, Nail changes, Pruritus, Rash Hematologic/lymphatic: DENIES: Bruising, Lymphadenopathy Immunologic/allergic: DENIES: Eczema, Urticaria Neurologic: DENIES: Abnormal gait, Headache, Localized weakness, Paresthesias, Seizures, Speech Problems, Tremor, Poor Balance Psychiatric: DENIES: Anxiety, Confusion, Mood changes, Depression, Hallucinations, Agitation, Suicidal Ideation, Homicidal Ideation, Delusions Past Family Social History Allergies: Coded Allergies: No Known Allergies (Unverified , 12/07/16) Past Medical History Lyme's disease Amebiasis Past Surgical History None per patient. Reported Medications Tylenol high-dose. Reported Meds & Active Scripts Active No Active Prescriptions or Reported Medications Active Ordered Medications Current Medications Medications (Trade) Dose Ordered Sig/Marcia Route Start Time Stop Time Status Last Admin (NS 1000 ml Inj) 1,000 ml @ 100 mls/hr Q10H IV 12/07/16 18:06 12/08/16 06:37 (NS Flush) 2 ml UNSCH PRN FLUSH 12/07/16 18:15 (NS Flush) 2 ml BID FLUSH 12/07/16 21:00 (Tylenol) 650 mg Q4H PRN PO 12/07/16 18:15 12/08/16 16:23 (Zofran Inj) 4 mg Q6H PRN IVP 12/07/16 18:15 (Reglan Inj) 5 mg Q6H PRN IV PUSH 12/07/16 18:15 (Restoril) 15 mg HS PRN PO 12/07/16 18:15 (Narcan Inj) 0.4 mg UNSCH PRN IV 12/07/16 18:15 (Motrin) 400 mg Q4H PRN PO 12/07/16 18:15 (Lovenox Inj) 40 mg Q24H SQ 12/07/16 20:00 12/07/16 20:20 Doxycycline Hyclate 100 mg 100 mg BID PO 12/08/16 21:00 (Levaquin 750 Mg Premix Inj) 150 ml @ 100 mls/hr Q24H IV 12/08/16 17:00 12/08/16 17:00 Family History reviewed and NC to current problems. Social History As per history of present illness. Denies any alcohol. Denies any IV drug abuse. Denies any smoking. Physical Exam Vital Signs Vital Signs Date Time Temp Pulse Resp B/P Pulse Ox O2 Delivery O2 Flow Rate FiO2 12/08/16 12:00 98.4 75 18 110/64 94 12/08/16 08:00 98.2 68 17 105/65 97 12/08/16 05:21 98.8 85 18 115/72 97 12/08/16 01:31 97.8 72 18 112/73 98 12/07/16 21:57 97.6 86 18 108/64 96 12/07/16 21:28 77 15 107/59 96 Room Air 12/07/16 20:00 97 12/07/16 19:02 99.3 86 16 106/60 97 Room Air 12/07/16 19:00 81 15 97 12/07/16 18:19 80 16 123/70 99 Room Air 12/07/16 14:33 69 17 101/60 100 Room Air 12/07/16 13:39 99.0 78 16 120/68 100 Room Air Physical Exam GENERAL: This is a well-nourished, well-developed patient, in no apparent distress. SKIN: Scars from prior mosquito bites. No maculopapular rash noted. HEAD: Atraumatic. Normocephalic. No temporal or scalp tenderness. EYES: Pupils equal round and reactive. Extraocular motions intact. No scleral icterus. No injection or drainage. ENT: Nose without bleeding, purulent drainage or septal hematoma. Throat without erythema, tonsillar hypertrophy or exudate. Uvula midline. Airway patent. NECK: Trachea midline. Supple, nontender, no meningeal signs. CARDIOVASCULAR: Heart sounds audible. No murmur appreciated. RESPIRATORY: Clear to auscultation. Breath sounds equal bilaterally. No wheezes , rales, or rhonchi. GASTROINTESTINAL: Abdomen soft, non-tender, nondistended. MUSCULOSKELETAL: Extremities without clubbing, cyanosis, or edema. No joint tenderness, effusion, or edema noted. No calf tenderness. Negative Homans sign bilaterally. NEUROLOGICAL: Awake and alert. Grossly nonfocal. Psych cooperative IV line sites with no evidence of infection. Laboratory Laboratory Tests Test 12/07/16 12/07/16 12/08/16 14:20 21:30 05:52 CSF Volume (Tube 1) 2.0 CSF Supernatant Color (tube 1) CLEAR CSF Gross Blood (Tube 1) 0 CSF Volume (Tube 2) 1.6 CSF Supernatant Color (tube 2) CLEAR CSF Gross Blood (Tube 2) 0 CSF Volume (Tube 3) 1.5 CSF Supernatant Color (tube 3) CLEAR CSF Gross Blood (Tube 3) 0 CSF Volume (Tube 4) 2.5 CSF Supernatant Color (tube 4) CLEAR CSF Gross Blood (Tube 4) 0 CSF WBC (Tube 4) 11 CSF RBC (Tube 4) 8 CSF Neutrophils 2 CSF Lymphocytes 32 CSF Monocytes 66 CSF Glucose 62 CSF Total Protein 35.9 Urine Opiates Screen NEG Urine Barbiturates Screen NEG Urine Amphetamines Screen NEG Urine Benzodiazepines Screen NEG Urine Cocaine Screen NEG Urine Cannabinoids Screen NEG White Blood Count 6.9 Red Blood Count 4.57 Hemoglobin 13.3 Hematocrit 39.4 Mean Corpuscular Volume 86.3 Mean Corpuscular Hemoglobin 29.2 Mean Corpuscular Hemoglobin 33.9 Concent Red Cell Distribution Width 13.4 Platelet Count 177 Mean Platelet Volume 7.6 Neutrophils (%) (Auto) 74.7 Lymphocytes (%) (Auto) 15.9 Monocytes (%) (Auto) 9.2 Eosinophils (%) (Auto) 0.0 Basophils (%) (Auto) 0.2 Neutrophils # (Auto) 5.1 Lymphocytes # (Auto) 1.1 Monocytes # (Auto) 0.6 Eosinophils # (Auto) 0.0 Basophils # (Auto) 0.0 CBC Comment DIFF FINAL Differential Comment Blood Smear Pathologist Review Sodium Level 141 Potassium Level 4.2 Chloride Level 110 Carbon Dioxide Level 23.0 Anion Gap 8 Blood Urea Nitrogen 11 Creatinine 0.90 Estimat Glomerular Filtration 90 Rate Random Glucose 124 Calcium Level 8.3 Total Creatine Kinase 67 Troponin I LESS THAN 0.02 C-Reactive Protein 9.46 Hepatitis A IgM Antibody NEGATIVE Hepatitis B Surface Antigen NEGATIVE Hepatitis B Core IgM Antibody NEGATIVE Hepatitis C Antibody NEGATIVE HIV (1&2) Antibody NEGATIVE Date/Time Procedure Status Source Growth 12/07/16 14:20 Gram Stain - Final Resulted Cerebral Spinal Fluid Lumbar Puncture 12/07/16 14:20 CSF Culture - Preliminary Resulted Cerebral Spinal Fluid Lumbar Puncture NO GROWTH IN 24 HOURS. 12/07/16 14:20 Fungal Smear - Final Resulted Cerebral Spinal Fluid Lumbar Puncture NO FUNGAL ELEMENTS SEEN. 12/07/16 14:20 Fungal Culture Resulted Cerebral Spinal Fluid Lumbar Puncture Pending 12/07/16 09:55 Malaria Smear (IAN) - Final Complete Blood Peripheral NEGATIVE - NO BLOOD PARASITES SEEN.... 12/07/16 09:55 Aerobic Blood Culture - Preliminary Resulted Blood Peripheral NO GROWTH IN 1 DAY 12/07/16 09:55 Anaerobic Blood Culture - Preliminary Resulted Blood Peripheral NO GROWTH IN 1 DAY 12/07/16 09:50 Influenza Types A,B Antigen (IAN) - Final Complete Nasal Aspirate NEGATIVE FOR FLU A AND B ANTIGEN.... Result Diagram: 12/08/16 0552 12/08/16 0552 Imaging Last Impressions Chest CT 12/08/16 0000 Signed Impressions: Service Date/Time: Thursday, December 08, 2016 14:58 - CONCLUSION: 1. Consolidative infiltrate in the right lower lobe characteristic of pneumonia. 2. Small right pleural effusion and minimal left pleural effusion. Bean Stevenson MD Head CT 12/07/16 1133 Signed Impressions: Service Date/Time: Wednesday, December 07, 2016 12:08 - CONCLUSION: Unremarkable exam. Bean Stevenson MD Assessment and Plan Assessment and Plan Fever (FUO) in a traveller to [facility] Pneumonia (CAP, Atypical vs TB or Fungal infection). Headaches s/p LP Recs: Hepatitis panel HIV antibody Peripheral smear to be reviewed by pathologist. Spoke to Pathology no parasites visible. Fungal blood cultures Start Levaquin Continue Doxy for now. Zika virus check Check viral resp culture Check fungal Abs Check for other fungal serologies. Check Legionella urine antigen Check Pneumococcal antigen CT chest with contrast: cough and chest pain. sami Sutton, and Dr.Landau Carter pt and spouse in room/ Critical thinking and decision making. Time in excess of 80 mins. Reviewed CDC alerts for travel regions. Lori Joe MD Dec 08, 2016 13:29
[2016-12-08] MEDS ORDERED: IOHEXOL 350 MG/ML 10 ML VIAL (for RAD DIAG) IV ONE (15:06)
[2016-12-08 15:09] VITALS: BP 159/77; PULSE 115; RESP 18; TEMP 100.5; O2SAT 100
--- NOTE | 2016-12-08 15:14 | RADRPT ---
EXAM DATE/TIME: 12/08/2016 14:58 [place] COMPARISON: No previous studies available for comparison. INDICATIONS : Headache and fever for seven days.. Please evaluate for pneumonia. IV CONTRAST: 80 cc Omnipaque 350 (iohexol) IV RADIATION DOSE: 6.11 CTDIvol (mGy) MEDICAL HISTORY : None SURGICAL HISTORY : None. ENCOUNTER: Initial ACUITY: 1 week PAIN SCALE: 7/10 LOCATION: cranial TECHNIQUE: Volumetric scanning of the chest was performed. Using automated exposure control and adjustment of t he mA and/or kV according to patient size, radiation dose was kept as low as reasonably achievable to obtain optimal diagnostic quality images. FINDINGS: LUNGS: There is dense consolidation in the right lower lobe with multiple air bronchograms. The right upper lobe and left lung are clear. PLEURA: There is a small right pleural effusion. There is a minimal left effusion. MEDIASTINUM: The heart and great vessels demonstrate no acute abnormality. There is no mediastinal or hilar lymph adenopathy. AXILLAE: Within normal limits. No lymphadenopathy. SKELETAL: Within normal limits for patient age. MISCELLANEOUS: The visualized upper abdominal organs demonstrate no acute abnormality. CONCLUSION: 1. Consolidative infiltrate in the right lower lobe characteristic of pneumonia. 2. Small right pleural effusion and minimal left pleural effusion. Bean Stevenson MD on December 08, 2016 at 15:10 Board Certified Radiologist. This report was verified electronically.
--- NOTE | 2016-12-08 15:47 | HHI.FPPN ---
Subjective Subjective Patient seen and examined with the resident team. Case reviewed and discussed. Please refer to resident H&P for further details regarding history of present illness, ROS, past medical and surgical history, family and social history. In summary, patient is a pleasant 51-year-old male accompanied by his presenting after fever and myalgias following a trip to [facility]. The patient was admitted last night after temperature 103 at home and progressive weakness and myalgias with headache. Patient underwent LP in the emergency room with contact to infectious disease regarding further treatment. He is seen in his hospital room with at his bedside this morning. He reports he is feeling improved after IV fluids and doxycycline. [facility] Objective Objective Last Impressions Chest CT 12/08/16 0000 Signed Impressions: Service Date/Time: Thursday, December 08, 2016 14:58 - CONCLUSION: 1. Consolidative infiltrate in the right lower lobe characteristic of pneumonia. 2. Small right pleural effusion and minimal left pleural effusion. Bean Stevenson MD Head CT 12/07/16 1133 Signed Impressions: Service Date/Time: Wednesday, December 07, 2016 12:08 - CONCLUSION: Unremarkable exam. Bean Stevenson MD Laboratory Tests - Abnormals Test 12/08/16 05:52 Neutrophils (%) (Auto) 74.7 % Monocytes (%) (Auto) 9.2 % Chloride Level 110 MEQ/L Random Glucose 124 MG/DL Calcium Level 8.3 MG/DL Troponin I LESS THAN 0.02 NG/ML C-Reactive Protein 9.46 MG/DL Vital Signs 12/07/16 12/07/16 12/07/16 12/07/16 18:19 19:00 19:02 20:00 Temp 99.3 Pulse 80 81 86 Resp 16 B/P 123/70 106/60 Pulse Ox 99 97 97 97 O2 Delivery Room Air Room Air 12/07/16 12/07/16 12/08/16 12/08/16 21:28 21:57 01:31 05:21 Temp 97.6 97.8 98.8 Pulse 77 86 72 85 Resp 15 18 B/P 107/59 108/64 112/73 115/72 Pulse Ox 96 96 98 97 O2 Delivery Room Air 12/08/16 12/08/16 12/08/16 08:00 12:00 15:09 Temp 98.2 98.4 100.5 Pulse 68 75 115 Resp 17 18 18 B/P 105/65 110/64 159/77 Pulse Ox 97 94 100 INTAKE & OUTPUT 12/08/16 07:00 Intake Total 500 ml Balance 500 ml Physical exam GENERAL: Well-developed well-nourished, NAD, sitting up in bed SKIN: Warm and dry. Scattered healing bug bites over her right upper arm as well as right foot. No other rashes or lesions. HEAD: Normocephalic. Atraumatic EYES: No scleral icterus. No injection or drainage. ENT: OP clear, MMM. NECK: Supple, trachea midline. No JVD or lymphadenopathy. CARDIOVASCULAR: Regular rate and rhythm without audible murmurs, gallops, or rubs. RESPIRATORY: Breath sounds equal and clear to auscultation bilaterally. No accessory muscle use. GASTROINTESTINAL: Abdomen soft, non-tender, nondistended. No rebound or guarding, normal active bowel sounds MUSCULOSKELETAL: No cyanosis, or edema. No calf tenderness BACK: Nontender without obvious deformity. No CVA tenderness. Band-Aid over LP site without ecchymosis or drainage. Neuro: Awake and alert, normal cranial nerves. Normal speech. Motor and sensation intact and equal bilaterally. Assessment Assessment 51-year-old male admitted with: Fever and myalgias, headache in the setting of recent travel to [facility] Patient with report of multiple bug bites, concern for tickborne illness Elevated CRP Hyperglycemia PLAN PLAN Continue IV fluids Follow labs and culture results Empiric treatment with doxycycline, per infectious disease Appreciate infectious disease expertise CT chest Trend CRP Patient seen and examined. Case reviewed and discussed. Agree with plan of care as discussed with me and documented in the resident note. Samara Bass MD Dec 08, 2016 15:47
[2016-12-08] MEDS: ACETAMINOPHEN 325 MG TAB PO PRN ×2 (16:23→21:15)
[2016-12-08] MEDS ORDERED: LEVOFLOXACIN 750 MG PREMIX INJ 150 ML IV SCH (17:00)
--- NOTE | 2016-12-08 17:25 | EC ---
Study Study Date:12/08/2016 STUDY CONCLUSIONS SUMMARY LEFT VENTRICLE: The cavity size was normal. Systolic function was normal. The estimated ejection fraction was in the range of 55% to 60%. Wall motion was normal; there were no regional wall motion abnormalities. Left ventricular diastolic function parameters were normal. If LV function is below 40, please consider prescribing an ACEI or ARB or document rationale for non-use. PROCEDURE DATA STUDY STATUS: Elective. Procedure: Transthoracic echocardiography. Image quality was good. Scanning was performed from the parasternal, apical, and subcostal acoustic windows. Study completion: The patient tolerated the procedure well. Transthoracic echocardiography. M-mode, complete 2D, complete spectral Doppler, and color Doppler. Patient status: Inpatient. CARDIAC ANATOMY LEFT VENTRICLE: The cavity size was normal. There was no hypertrophy. Systolic function was normal. The estimated ejection fraction was in the range of 55% to 60%. Wall motion was normal; there were no regional wall motion abnormalities. The transmitral flow pattern was normal. The deceleration time of the early transmitral flow velocity was normal. The pulmonary vein flow pattern was normal. The tissue Doppler parameters were normal. Left ventricular diastolic function parameters were normal. AORTIC VALVE: Structurally normal valve. Doppler: There was no stenosis. No significant regurgitation. MITRAL VALVE: Structurally normal valve. Doppler: There was no evidence for stenosis. No significant regurgitation. Peak gradient: 4mm Hg (D). LEFT ATRIUM: The atrium was normal in size. ATRIAL SEPTUM: No defect or patent foramen ovale was identified. RIGHT VENTRICLE: The cavity size was normal. Systolic function was normal. PULMONIC VALVE: The valve appears to be grossly normal. Doppler: There was no evidence for stenosis. No significant regurgitation. TRICUSPID VALVE: Structurally normal valve. Doppler: There was no evidence for stenosis. Trace regurgitation. RIGHT ATRIUM: The atrium was normal in size. PERICARDIUM: There was no pericardial effusion. BASIC MEASUREMENTS ADULT NORMAL Left ventricle LV internal dimension, ED, chordal level, 48.7 mm 43-52 PLAX LV internal dimension, ES, chordal level, 36.2 mm 23-38 PLAX Fractional shortening, chordal level, PLAX *26 % >29 LV posterior wall thickness, ED 7.26 mm IVS/LVPW ratio, ED 1.26 <1.3 Ventricular septum Septal thickness, ED 9.16 mm Aortic valve Leaflet separation 21 mm 15-26 Left atrium Anterior-posterior dimension 33 mm Right ventricle RV internal dimension, ED, PLAX 21.2 mm 19-38 BASIC MEASUREMENTS ADULT NORMAL Aortic valve Leaflet separation 21 mm 15-26 Aorta Root diameter, ED 36 mm 20-37 Left atrium Anterior-posterior dimension, ES 33 mm 19-40 LA/aortic root ratio 0.92 DOPPLER MEASUREMENTS ADULT NORMAL Main pulmonary artery Pressure, S 27 mm Hg =30 Mitral valve Peak E-wave velocity 101 cm/s Peak A-wave velocity 68.5 cm/s Peak gradient, D 4 mm Hg Peak E/A ratio 1.5 Tricuspid valve Regurgitant peak velocity 236 cm/s Peak RV-RA gradient, S 22 mm Hg Maximal regurgitant velocity 236 cm/s Systemic veins Estimated CVP 5 mm Hg Right ventricle RV pressure, S 27 mm Hg <30 LEGEND: Mean values are shown as u=mean value. Asterisk (*) banegas values outside specified normal range. Prepared and signed by Rachid Temple [id number]
[2016-12-08] MEDS: ENOXAPARIN SODIUM 40 MG/0.4 ML SYRINGE SQ SCH (21:13)
[2016-12-08] MEDS: DOXYCYCLINE HYCLATE 100 MG CAP PO SCH (21:13)
[2016-12-08 21:38] VITALS: BP 120/67; PULSE 92; RESP 18; TEMP 101.4; O2SAT 96
[2016-12-08 21:45] LABS: AUTOMATED NEUTROPHIL # 5.4 TH/MM3 (1.8-7.7); BASOPHIL % 0.3 % (0.0-2.0); EOSINOPHIL % 0.3 % (0.0-4.0); HEMATOCRIT 38.4 % (39.0-51.0); HEMO FLAGS DIFF FINAL; LYMPH % 15.3 % (9.0-44.0); LYMPHOCYTE # 1.1 TH/MM3 (1.0-4.8); MEAN CELL VOLUME 85.8 FL (80.0-100.0); MEAN CORPUSCULAR HEMOGLOBIN 29.6 PG (27.0-34.0); MEAN CORPUSCULAR HGB CONC 34.5 % (32.0-36.0); MONO % 9.2 % (0.0-8.0); NEUT % 74.9 % (16.0-70.0); PLATELET COUNT 197 TH/MM3 (150-450); RED BLOOD COUNT 4.48 MIL/MM3 (4.50-5.90); RED CELL DISTRIBUTION WIDTH 13.7 % (11.6-17.2); WHITE BLOOD COUNT 7.2 TH/MM3 (4.0-11.0)
[2016-12-08 22:14] LABS: ALKALINE PHOSPHATASE 56 U/L (45-117); ALT (GPT) 40 U/L (12-78); ANION GAP 7 MEQ/L (5-15); AST (GOT) 22 U/L (15-37); BICARBONATE 26.6 MEQ/L (21.0-32.0); BLOOD UREA NITROGEN 11 MG/DL (7-18); CHLORIDE 105 MEQ/L (98-107); GLOMERULAR FILTRATION RATE 81 ML/MIN (>89); POTASSIUM 3.7 MEQ/L (3.5-5.1); SODIUM (NA) 139 MEQ/L (136-145); TOTAL BILIRUBIN ADULT 0.3 MG/DL (0.2-1.0)
[2016-12-09] VITALS (10 sets, daily range): BP systolic 107–139; BP diastolic 56–75; PULSE 76–94; RESP 12–20; TEMP 96–102.4; O2SAT 93–98
[2016-12-09] MEDS: SODIUM CHLOR 0.9% 1000 ML INJ 1,000 ML IV SCH ×3 (01:26→20:06)
[2016-12-09] MEDS: IBUPROFEN 400 MG TAB PO PRN ×2 (01:29→05:43)
[2016-12-09] MEDS: DOXYCYCLINE HYCLATE 100 MG CAP PO SCH ×2 (09:05→20:38)
[2016-12-09] MEDS: SODIUM CHLORIDE 0.9% FLUSH 5 ML FLUSH FLUSH SCH ×2 (09:05→20:39)
--- NOTE | 2016-12-09 09:42 | HHI.FPPN ---
Subjective Remarks Pt seen and examined this morning. Overnight pt with elevated temperature to 102.4, residents were not notified. Fevers were associated with diaphoresis and a headache which has resolved. Headache is pounding in quality and located on the top center of his head. Overnight he experienced bilateral knee pain, edema and erythema, associated with decreased range of motion, which has now spontaneously resolved. Currently denies chest pain, shortness of breath, abdominal pain, constipation, diarrhea, n/v, skin changes or rashes, joint pain or swelling. (Wai Thomson MD R2) Objective Vitals Vital Signs Date Time Temp Pulse Resp B/P Pulse Ox O2 Delivery O2 Flow Rate FiO2 12/09/16 08:50 97.1 76 16 109/62 95 12/09/16 08:13 96.0 94 19 123/62 94 12/09/16 05:43 99.4 78 18 107/56 98 12/09/16 04:10 95 12/09/16 01:48 102.4 94 18 108/63 93 12/08/16 21:38 101.4 92 18 120/67 96 12/08/16 17:02 18 12/08/16 15:09 100.5 115 18 159/77 100 12/08/16 12:00 98.4 75 18 110/64 94 I/O 12/08/16 12/08/16 12/08/16 12/09/16 12/09/16 12/09/16 07:00 15:00 23:00 07:00 15:00 23:00 Intake Total 1050 ml Output Total 1 ml Balance -1 ml 1050 ml Intake Oral 150 ml IV Total 900 ml Output Urine Total 1 ml # Voids 3 (Wai Thomson MD R2) Result Diagram: 12/08/16211512/08/162115 Objective Remarks GENERAL: No acute distress, nontoxic SKIN: Warm and dry. No petechia or purpura on exam. NO rash. 2-3 x 2-3mm scabs on right medial bicep and forearem. HEAD: Atraumatic. Normocephalic. No scleral icterus. No injection or drainage. No nasal bleeding or discharge. Mucous membranes pink and moist. CARDIOVASCULAR: Regular rate and rhythm. No murmur appreciated. RESPIRATORY: No accessory muscle use. Clear to auscultation. Breath sounds equal bilaterally. No wheezes rales or rhonchi. GASTROINTESTINAL: Abdomen soft, non-tender, nondistended. Hepatic and splenic margins not palpable. MUSCULOSKELETAL: No obvious deformities. No clubbing. No cyanosis. No erythema or edema of knees, no pain, full range of motion. NEUROLOGICAL: Awake and alert. No obvious cranial nerve deficits. Motor grossly within normal limits. Normal speech. PSYCHIATRIC: Appropriate mood and affect; insight and judgment normal. (Wai Thomson MD R2) A/P Assessment and Plan 51-year-old man with no significant past medical history the history significant for innumerable bug bites acquired in [facility] presents with fever of unknown origin up to a high of 103, neck, back, joint pain, cough, chills, night sweats. Differential diagnosis includes arthropod borne diseases, food and waterborne diseases, other infections, autoimmune etiologies, allergic/ immune etiologies. Placed in observation for supportive treatment, infectious disease consult, pending workup. Discharge Planning Anticipate discharge once pt has been cleared by ID and pulmonology, and fevers are controlled. Time frame unclear. dw Dr. Joe wdw Dr. Bass (Wai Thomson MD R2) Attending Attestation Patient seen and examined. Case reviewed and discussed with the resident team Agree with plan of care as discussed with me and documented in the resident note. Discussed plan of care, with Dr. Joe and at the bedside, including pulmonology consult with anticipated Bronchoscopy tomorrow. Given fevers, broad-spectrum antibiotic coverage initiated today. ALCALA resolved. (Samara Bass MD) Problem List: (1) Fever of unknown origin Status: Acute Plan: 51-year-old man with no significant past medical history the history significant for innumerable bug bites acquired in [facility] presented with fever of unknown origin up to a high of 103, neck, back, joint pain, cough, chills, night sweats. Differential diagnosis includes arthropod borne diseases, food and waterborne diseases, other infections, autoimmune etiologies, allergic/ immune etiologies. Head CT unremarkable. Patient had lumbar puncture in the emergency department, which was not concerning for meningitis. Malaria smear negative. See H&P regarding extensive list of deferentials. Patient continues to have fevers with, Tmax of 102.5 overnight, despite antibiotic therapy If patient continues to have fevers, residents are to be notified so that repeat blood cultures can be ordered. No leukocytosis Infectious disease consulted, appreciate recommendations Follow-up serologies including [place] spotted fever, rickettsia, typhus fever, Zika virus PCR, pending CSF culture with no growth to date, no fungal elements seen Blood culture with no growth to date Stool cryptosporidium and Giardia pending, rare WBCs Hepatitis profile negative RPR nonreactive HIV negative UDS negative Monitor vital signs Monitor intake and output We'll also order histoplasma antigen serum and urine, cryptococcal antigen serum, aspergillosis antibody IgG, fungal antibody serum per conversation with Dr. Joe, infectious disease. Medications: Doxycycline 100 mg PO BID (12/08 ) Tylenol 650 mg by mouth every 4 hours when necessary for pain, temperature, headache Motrin 400 mg by mouth every 4 hours when necessary for muscle pain (2) Pneumonia Status: Acute Plan: Chest CT suggestive of pneumonia Urine Legionella and strep pneumo antigens negative Antibiotic spectrum broadened due to continued fevers: We'll start Zosyn and vancomycin Discontinue Levaquin 750 mg IV daily () Pulmonology consulted, Dr. Rahman, appreciate recommendations and intervention Possible bronchoscopy tomorrow Imaging: Chest CT from 12/08/16: Significant for consolidative infiltrate in the right lower lobe characteristic of pneumonia. Small right pleural effusion and minimal left pleural effusion. (3) Nutrition, metabolism, and development symptoms Status: Acute Plan: Fluids: Normal saline IV at 100 ml per hour Electrolytes: Monitor and replete as necessary Nutrition: Regular basic diet GI ppx: Not currently indicated (4) No contraindication to deep vein thrombosis (DVT) prophylaxis Status: Acute Plan: Lovenox 40 mg subcutaneous every 24 hours SCDs bilaterally (Wai Thomson MD R2) Wai Thomson MD R2 Dec 09, 2016 09:42 Samara Bass MD Dec 10, 2016 15:32
[2016-12-09] MEDS: ACETAMINOPHEN 325 MG TAB PO PRN ×2 (09:46→17:28)
[2016-12-09] MEDS ORDERED: PIPERACIL-TAZO 3.375 GM PREMIX 50 ML IV SCH (11:00)
[2016-12-09] MEDS: VANCOMYCIN INJ 1,750 MG in SODIUM CHLORID 0.9% 500 ML INJ 500 ML IV SCH (16:50)
--- NOTE | 2016-12-09 17:03 | HHI.IDPN ---
Subjective Subjective Remarks is a 51 y/o CM who recently returned from [facility] and other places in [facility] [place] where he stayed for approx 3 weeks. He was admitted for fever unknown origin (FUO). Chest pain and cough lead to CT chest which shows pneumonia. Overnight events reviewed. Fevers high grade despite Levaquin and Doxy. Headache No rash Reports loose BM. Stool studies sent. On further questioning pt now reports he came in brief contact with horses and dogs. No swimming in lakes and ponds. No exposure to bats etc in caves No exposure to known TB but has a friend who has cough as well who has been toughing it out. No exposure to rats. Antibiotics Levaquin Doxy Lines Line sites with no e/o infection. Past Medical History amoebiasis giardiasis Allergies: Coded Allergies: No Known Allergies (Unverified , 12/07/16) Objective . Vital Signs Date Time Temp Pulse Resp B/P Pulse Ox O2 Delivery O2 Flow Rate FiO2 12/09/16 13:32 18 12/09/16 12:00 97.3 79 12 110/66 95 12/09/16 08:50 97.1 76 16 109/62 95 12/09/16 08:49 95 21 12/09/16 08:13 96.0 94 19 123/62 94 12/09/16 05:43 99.4 78 18 107/56 98 12/09/16 04:10 95 12/09/16 01:48 102.4 94 18 108/63 93 12/08/16 21:38 101.4 92 18 120/67 96 12/08/16 12/08/16 12/09/16 15:00 23:00 07:00 Intake Total 1050 ml Output Total 1 ml Balance -1 ml 1050 ml Intake Oral 150 ml IV Total 900 ml Output Urine Total 1 ml # Voids 3 . Laboratory Tests Test 12/08/16 12/08/16 05:52 21:16 White Blood Count 6.9 TH/MM3 7.2 TH/MM3 Red Blood Count 4.57 MIL/MM3 4.48 MIL/MM3 Hemoglobin 13.3 GM/DL 13.2 GM/DL Hematocrit 39.4 % 38.4 % Mean Corpuscular Volume 86.3 FL 85.8 FL Mean Corpuscular Hemoglobin 29.2 PG 29.6 PG Mean Corpuscular Hemoglobin 33.9 % 34.5 % Concent Red Cell Distribution Width 13.4 % 13.7 % Platelet Count 177 TH/MM3 197 TH/MM3 Mean Platelet Volume 7.6 FL 7.7 FL Neutrophils (%) (Auto) 74.7 % 74.9 % Lymphocytes (%) (Auto) 15.9 % 15.3 % Monocytes (%) (Auto) 9.2 % 9.2 % Eosinophils (%) (Auto) 0.0 % 0.3 % Basophils (%) (Auto) 0.2 % 0.3 % Neutrophils # (Auto) 5.1 TH/MM3 5.4 TH/MM3 Lymphocytes # (Auto) 1.1 TH/MM3 1.1 TH/MM3 Monocytes # (Auto) 0.6 TH/MM3 0.7 TH/MM3 Eosinophils # (Auto) 0.0 TH/MM3 0.0 TH/MM3 Basophils # (Auto) 0.0 TH/MM3 0.0 TH/MM3 CBC Comment DIFF FINAL DIFF FINAL Differential Comment Blood Smear Pathologist Review Laboratory Tests Test 12/08/16 12/08/16 05:52 21:16 Sodium Level 141 MEQ/L 139 MEQ/L Potassium Level 4.2 MEQ/L 3.7 MEQ/L Chloride Level 110 MEQ/L 105 MEQ/L Carbon Dioxide Level 23.0 MEQ/L 26.6 MEQ/L Anion Gap 8 MEQ/L 7 MEQ/L Blood Urea Nitrogen 11 MG/DL 11 MG/DL Creatinine 0.90 MG/DL 0.98 MG/DL Estimat Glomerular Filtration 90 ML/MIN 81 ML/MIN Rate Random Glucose 124 MG/DL 112 MG/DL Calcium Level 8.3 MG/DL 7.6 MG/DL Total Creatine Kinase 67 U/L Troponin I LESS THAN 0.02 NG/ML C-Reactive Protein 9.46 MG/DL Total Bilirubin 0.3 MG/DL Aspartate Amino Transf 22 U/L (AST/SGOT) Alanine Aminotransferase 40 U/L (ALT/SGPT) Alkaline Phosphatase 56 U/L Total Protein 6.2 GM/DL Albumin 2.7 GM/DL Microbiology Date/Time Procedure Status Source Growth 12/07/16 09:50 Aerobic Blood Culture - Preliminary Resulted Blood Peripheral NO GROWTH IN 2 DAYS 12/07/16 09:50 Anaerobic Blood Culture - Preliminary Resulted Blood Peripheral NO GROWTH IN 2 DAYS 12/07/16 09:50 Influenza Types A,B Antigen (IAN) - Final Complete Nasal Aspirate NEGATIVE FOR FLU A AND B ANTIGEN.... 12/07/16 09:55 Aerobic Blood Culture - Preliminary Resulted Blood Peripheral NO GROWTH IN 2 DAYS 12/07/16 09:55 Anaerobic Blood Culture - Preliminary Resulted Blood Peripheral NO GROWTH IN 2 DAYS 12/07/16 09:55 Malaria Smear (IAN) - Final Complete Blood Peripheral NEGATIVE - NO BLOOD PARASITES SEEN.... 12/07/16 14:20 Gram Stain - Final Resulted Cerebral Spinal Fluid Lumbar Puncture 12/07/16 14:20 CSF Culture - Preliminary Resulted Cerebral Spinal Fluid Lumbar Puncture NO GROWTH IN 48 HOURS. 12/07/16 14:20 Fungal Smear - Final Resulted Cerebral Spinal Fluid Lumbar Puncture NO FUNGAL ELEMENTS SEEN. 12/07/16 14:20 Fungal Culture Resulted Cerebral Spinal Fluid Lumbar Puncture Pending 12/08/16 14:04 Cryptosporidium Exam Resulted Stool Stool Pending 12/08/16 14:04 Stool Pus (IAN) - Final Resulted Stool Stool RARE WBC 12/08/16 14:04 Giardia Antigen (IAN) Resulted Stool Stool Pending 12/08/16 19:08 Blood Fungal Culture Received Blood Peripheral Pending 12/08/16 19:08 Blood Fungal Culture Received Blood Peripheral Pending 12/08/16 20:00 Legionella Antigen - Final Complete Urine Random Urine PRESUMPTIVE NEGATIVE FOR LEGIONELLA P... 12/08/16 20:00 Streptococcus pneumoniae Antigen (M - Final Complete Urine Random Urine PRESUMPTIVE NEGATIVE FOR STREPTOCOCCU... Imaging Last Impressions Chest CT 12/08/16 0000 Signed Impressions: Service Date/Time: Thursday, December 08, 2016 14:58 - CONCLUSION: 1. Consolidative infiltrate in the right lower lobe characteristic of pneumonia. 2. Small right pleural effusion and minimal left pleural effusion. Bean Stevenson MD Head CT 12/07/16 1133 Signed Impressions: Service Date/Time: Wednesday, December 07, 2016 12:08 - CONCLUSION: Unremarkable exam. Bean Stevenson MD Physical Exam GENERAL: This is a well-nourished, well-developed patient, in no apparent distress. SKIN: Scars from prior mosquito bites. No maculopapular rash noted. HEAD: Atraumatic. Normocephalic. No temporal or scalp tenderness. EYES: Pupils equal round and reactive. Extraocular motions intact. No scleral icterus. No injection or drainage. ENT: Nose without bleeding, purulent drainage or septal hematoma. Throat without erythema, tonsillar hypertrophy or exudate. Uvula midline. Airway patent. NECK: Trachea midline. Supple, nontender, no meningeal signs. CARDIOVASCULAR: Heart sounds audible. No murmur appreciated. RESPIRATORY: Clear to auscultation. Breath sounds equal bilaterally. No wheezes , rales, or rhonchi. GASTROINTESTINAL: Abdomen soft, non-tender, nondistended. MUSCULOSKELETAL: Extremities without clubbing, cyanosis, or edema. No joint tenderness, effusion, or edema noted. No calf tenderness. Negative Homans sign bilaterally. NEUROLOGICAL: Awake and alert. Grossly nonfocal. Psych cooperative IV line sites with no evidence of infection. Assessment & Plan Remarks Fever (FUO) in a traveller to [place] Pneumonia (CAP, Atypical vs TB or Fungal infection). DDX:: Fungal (ParaCocci, Cocci and other fungal lung infections: histo, blasto, crypto, cocci) DDX: TB DDX: Parasitic lung diseases like Strongyloidosis, Visceral leishmaniasis. Headaches s/p LP Recs: Hepatitis panel negative HIV antibody negative. Did not respond to Levaquin persistent fevers Start Zosyn IV Start Vanco IV DC Levaquin Pulmonary consult (dLeroyw the history relevant and need for bronchoscopy given anatomical diagnosis of pneumonia and fever not responsive to antibacterials) Continue Doxy for now. Follow Zika virus Follow viral resp culture Follow fungal Abs Follow for other fungal serologies. sami Sutton, . Sami pt and spouse in room: discussed all test results available, new plan for the day and the differential diagnosis and need for pulm consult. Critical thinking and decision making. Time in excess of 40 mins. Reached out to [facility] to get number for relevant departments. Will assess overnight response to antibiotics. Await pulm consult and bronchoscopy. Place pt in resp isolation for ? TB. d/w patent need for resp isolation. Lori Joe MD Dec 09, 2016 17:02
[2016-12-09] MEDS: PIPERACIL-TAZO 3.375 GM PREMIX 50 ML IV SCH (20:39)
--- NOTE | 2016-12-09 22:02 | MB ---
cc: JOSEFINA KUMAR MD, ARJUN D. MD DATE OF CONSULTATION: 12/09/[address] Josefina Kumar REASON FOR CONSULTATION Evaluate for lung infiltrate and bronchoscopy. HISTORY OF PRESENT ILLNESS Mr. Roy is a pleasant 51-year-old male with a history of recent travel to [place], he stated that he was there for about two weeks. About the 10th or 11th day of his stay, he started having fever and he had a headache in the retrobulbar area. He was bitten by mosquito and/or sand flies and developed a rash all over his body. He applied alcohol on it and it started disappearing with this. Because he was not getting better, he came to the [facility]. He was taking Tylenol, did not feel better and came to [facility]. He did not have any nausea or vomiting. He has cough and congestion and has started bringing up some phlegm now. No abdominal pain, no diarrhea. The patient was admitted, in the hospital he had a workup done. His blood parasites are negative. His CBC showed WBC count 7.2, hemoglobin 13.2, hematocrit 38.4, MCV 85, platelet count 197. Sodium 137, potassium 3.7, chloride 105, CO2 26, BUN 11, creatinine 0.98. INR is 1.0. Toxicology screen is negative. RPR is negative. Urine Legionella and pneumococcal antigens are negative. CT scan of the chest shows consolidative infiltrate in the right lower lobe characteristic of pneumonia and he has small pleural effusion. PAST MEDICAL HISTORY Significant for a history of - 1. Amoebiasis. 2. Lyme disease from which he fully recovered. MEDICATIONS He is currently taking - 1. Zosyn IV. 2. Vancomycin IV. 3. Doxycycline 100 mg twice a day. 4. Lovenox 40 mg. 5. Reglan 5 mg. ALLERGIES NO KNOWN DRUG ALLERGIES. SOCIAL HISTORY He is for 20 years. 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 No history of smoking. Drinks socially. No drug use. FAMILY HISTORY He has no children. REVIEW OF SYSTEMS Normally he is up around and active, likes to travel all over the exotic places. There is no DVT or pulmonary embolism. No seizure, stroke or epilepsy. No other sick contacts. After coming over here, one of his friends who was in contact with him in [place] told him he was sick one month ago with a similar problem and he recovered fully. PHYSICAL EXAMINATION GENERAL: Well-built, well-nourished male, not in any acute distress. VITAL SIGNS: Blood pressure 139/75, heart rate 86, respiration 18, temperature 100.4 HEENT: Pupils are equal and react to light. Oral mucosa and nasal mucosa normal. NECK: Supple. JVP not raised. CHEST: Air entry equal bilaterally. No rhonchi. CARDIOVASCULAR: S1, S2 normal. ABDOMEN: Benign. EXTREMITIES: No edema. IMPRESSION 1. Right lung infiltrate. Etiology to be determined including bacterial, fungal, virus or parasitic pneumonia. Also need to rule out the possibility of TB. 2. Skin rash has improved. 3. History of Amoebiasis. 4. History of Lyme disease. PLAN I discussed with the patient and his he will need bronchoscopy. I explained the procedure and the complications including complication of pneumothorax requiring chest tube, bleeding complication, injury to the blood vessels, lungs, nerves, arrhythmia, hypoxia. He understands and wants to proceed with it. He will be scheduled for bronchoscopy tomorrow. I will hold his Lovenox. Further treatment will depend on the course in the hospital. Thank you Dr. Josefina Kumar for this consult. MD DAVID Boyer/JOSE /7:30 PM /9:22 PM
[2016-12-10 00:30] VITALS: BP 127/71; PULSE 86; RESP 18; TEMP 100.6; O2SAT 98
[2016-12-10] MEDS: ACETAMINOPHEN 325 MG TAB PO PRN ×2 (00:32→13:02)
[2016-12-10 00:56] LABS: BLOOD, URINE NEG (NEG); GLUCOSE,URINE NEG (NEG); KETONE, URINE NEG (NEG); NITRITE,URINE NEG (NEG); PH, URINE 6.5 (5.0-8.5); URINE COLOR LIGHT-YELLOW (YELLW/STRAW)
[2016-12-10 00:57] LABS: COMMENT (UR) CULT NOT INDICATED; CULTURE IF INDICATED CULT NOT INDICATED
[2016-12-10 02:33] LABS: CHLAMYDIA PCR NOT DETECTED (NOT DETECT); NEISSERIA PCR NOT DETECTED (NOT DETECT)
[2016-12-10 03:50] VITALS: BP 114/68; PULSE 71; RESP 18; TEMP 98.9; O2SAT 94
[2016-12-10] MEDS: PIPERACIL-TAZO 3.375 GM PREMIX 50 ML IV SCH ×4 (03:52→21:07)
[2016-12-10 05:20] LABS: AUTOMATED NEUTROPHIL # 3.4 TH/MM3 (1.8-7.7); BASOPHIL % 0.7 % (0.0-2.0); EOSINOPHIL # 0.1 TH/MM3 (0-0.4); HEMATOCRIT 36.6 % (39.0-51.0); HEMO FLAGS DIFF FINAL; LYMPH % 25.7 % (9.0-44.0); LYMPHOCYTE # 1.5 TH/MM3 (1.0-4.8); MEAN CORPUSCULAR HEMOGLOBIN 29.5 PG (27.0-34.0); MEAN CORPUSCULAR HGB CONC 34.4 % (32.0-36.0); MONO % 12.6 % (0.0-8.0); PLATELET COUNT 209 TH/MM3 (150-450); RED BLOOD COUNT 4.26 MIL/MM3 (4.50-5.90); RED CELL DISTRIBUTION WIDTH 13.5 % (11.6-17.2); WHITE BLOOD COUNT 5.7 TH/MM3 (4.0-11.0)
[2016-12-10 05:39] LABS: ALT (GPT) 37 U/L (12-78); ANION GAP 8 MEQ/L (5-15); AST (GOT) 16 U/L (15-37); BICARBONATE 25.3 MEQ/L (21.0-32.0); BLOOD UREA NITROGEN 9 MG/DL (7-18); CHLORIDE 108 MEQ/L (98-107); GLOMERULAR FILTRATION RATE 79 ML/MIN (>89); POTASSIUM 3.4 MEQ/L (3.5-5.1); SODIUM (NA) 141 MEQ/L (136-145)
[2016-12-10 05:41] LABS: ALKALINE PHOSPHATASE 51 U/L (45-117); TOTAL BILIRUBIN ADULT 0.5 MG/DL (0.2-1.0)
[2016-12-10] MEDS: SODIUM CHLOR 0.9% 1000 ML INJ 1,000 ML IV SCH ×2 (06:06→21:00)
[2016-12-10 08:00] VITALS: BP 121/69; PULSE 75; RESP 18; TEMP 99.1; O2SAT 97
[2016-12-10] MEDS: DOXYCYCLINE HYCLATE 100 MG CAP PO SCH ×2 (09:24→21:07)
[2016-12-10] MEDS ORDERED: POTASSIUM CHLORIDE 10 MEQ CONTROLLED RELEASE TAB PO ONE (10:00)
[2016-12-10] MEDS ORDERED: SODIUM CHLORID 0.9% 500 ML IV SCH (10:15)
[2016-12-10] MEDS ORDERED: CALCIUM CARBONATE 500 MG CHEWABLE TAB CHEW ONE (10:15)
[2016-12-10] MEDS ORDERED: LACTATED RINGER'S 1000 ML IV SCH (10:15)
[2016-12-10] MEDS ORDERED: INSULIN HUMAN REGULAR 1,000 UNITS/10 ML VIAL SQ PRN (10:15)
[2016-12-10] MEDS ORDERED: METOPROLOL TARTRATE 25 MG TAB PO PRN (10:15)
--- NOTE | 2016-12-10 11:25 | HHI.FPPN ---
Subjective Remarks Overnight, Patient with an elevated maximum temperature of 100.8F at 21:24, patient with oxygen saturation 94-98% on room air, otherwise vital signs stable. Patient reports that he was sweating and having headache all night, but not right now. He reports that Tylenol helps a little bit to "take the edge off ". Patient still endorses chest pain and cough with deep inspiration/ respiration. He currently denies any fever, chills, persistent cough, chest pain at rest or with exertion. (Bean Richards MD R1) Objective Vitals Vital Signs Date Time Temp Pulse Resp B/P Pulse Ox O2 Delivery O2 Flow Rate FiO2 12/10/16 08:00 99.1 75 18 121/69 97 12/10/16 03:50 Room Air 12/10/16 03:50 98.9 71 18 114/68 94 12/10/16 00:30 Room Air 12/10/16 00:30 100.6 86 18 127/71 98 12/09/16 21:24 Room Air 12/09/16 21:24 100.8 77 20 123/73 97 12/09/16 19:39 100.0 84 20 125/70 95 12/09/16 18:38 18 12/09/16 17:02 100.4 86 18 139/75 97 12/09/16 12:00 97.3 79 12 110/66 95 I/O 12/09/16 12/09/16 12/09/16 12/10/16 12/10/16 12/10/16 07:00 15:00 23:00 07:00 15:00 23:00 Intake Total 1460 ml 1341 ml Output Total 1025 ml Balance 1460 ml 316 ml Intake Oral 960 ml 960 ml IV Total 500 ml 381 ml Output Urine Total 1025 ml # Voids 1 2 # Bowel Movements 0 (Bean Richards MD R1) Result Diagram: 12/10/16 0422 12/10/16 0422 Imaging Last Impressions Chest CT 12/08/16 0000 Signed Impressions: Service Date/Time: Thursday, December 08, 2016 14:58 - CONCLUSION: 1. Consolidative infiltrate in the right lower lobe characteristic of pneumonia. 2. Small right pleural effusion and minimal left pleural effusion. Bean Stevenson MD Head CT 12/07/16 1133 Signed Impressions: Service Date/Time: Wednesday, December 07, 2016 12:08 - CONCLUSION: Unremarkable exam. Bean Stevenson MD Objective Remarks GENERAL: No acute distress, nontoxic SKIN: Warm and dry. No petechia or purpura on exam. NO rash. 2-3 x 2-3mm scabs on right medial bicep and forearem. HEAD: Atraumatic. Normocephalic. No scleral icterus. No injection or drainage. No nasal bleeding or discharge. Mucous membranes pink and moist. CARDIOVASCULAR: Regular rate and rhythm. No murmur appreciated. RESPIRATORY: No accessory muscle use. Right basilar crackles. Lungs otherwise clear to auscultation. GASTROINTESTINAL: Abdomen soft, non-tender, nondistended. MUSCULOSKELETAL: No obvious deformities. No clubbing. No cyanosis. No erythema or edema of legs, no calf tenderness. NEUROLOGICAL: Awake and alert. No obvious cranial nerve deficits. Motor grossly within normal limits. Normal speech. PSYCHIATRIC: Appropriate mood and affect; insight and judgment normal. (Bean Richards MD R1) A/P Assessment and Plan 51-year-old man with no significant past medical history the history significant for innumerable bug bites acquired in [facility] presents with fever of unknown origin up to a high of 103, neck, back, joint pain, cough, chills, night sweats. Differential diagnosis includes pneumonia, URI, arthropod borne diseases, food and waterborne diseases, other infections, autoimmune etiologies, allergic/immune etiologies. Admitted for supportive treatment, infectious disease consult, pending workup. Discharge Planning Anticipate discharge once pt has been cleared by ID and pulmonology, and fevers are controlled. Time frame unclear. wdw Dr. Heath Bass (Bean Richards MD R1) Attending Attestation Patient seen and examined with the resident team. Case reviewed and discussed Agree with plan of care as discussed with me and documented in the resident note. (Samara Bass MD) Problem List: (1) Fever of unknown origin Status: Acute Plan: 51-year-old man with no significant past medical history the history significant for innumerable bug bites acquired in [facility] presented with fever of unknown origin up to a high of 103, neck, back, joint pain, cough, chills, night sweats. Differential diagnosis includes pneumonia, URI, arthropod borne diseases, food and waterborne diseases, other infections, autoimmune etiologies, allergic/immune etiologies. Patient continues to have fevers with, Tmax of 100.8 overnight, despite antibiotic therapy If patient continues to have fevers, residents are to be notified so that repeat blood cultures can be ordered. Infectious disease consulted, appreciate recommendations Follow-up pending labs below Monitor vital signs Monitor intake and output Pulmonology consult. Appreciate recommendations and bronchoscopy Medications: Doxycycline 100 mg PO BID (12/08 ) Tylenol 650 mg by mouth every 4 hours when necessary for pain, temperature, headache Motrin 400 mg by mouth every 4 hours when necessary for muscle pain Zosyn 3.375 g IV every 6 hours (12/09 - present) Vancomycin 1.75 g IV every 24 hours (12/09 - present) Work up: Head CT unremarkable. Patient had lumbar puncture in the emergency department, which was not concerning for meningitis. Malaria smear negative. No leukocytosis Follow-up serologies including [place] spotted fever, rickettsia, typhus fever, Zika virus PCR, pending CSF culture with no growth to date, no fungal elements seen Blood culture with no growth to date Stool cryptosporidium and Giardia pending, rare WBCs Hepatitis profile negative RPR nonreactive HIV negative UDS negative We'll also order histoplasma antigen serum and urine, cryptococcal antigen serum, aspergillosis antibody IgG, fungal antibody serum per conversation with Dr. Joe, infectious disease. Follow-up bronchoscopy (2) Pneumonia Status: Acute Plan: Chest CT suggestive of pneumonia Urine Legionella and strep pneumo antigens negative Antibiotic spectrum broadened due to continued fevers: We'll start Zosyn and vancomycin Discontinue Levaquin 750 mg IV daily () Pulmonology consulted, Dr. Rahman, appreciate recommendations and intervention Possible bronchoscopy tomorrow Imaging: Chest CT from 12/08/16: Significant for consolidative infiltrate in the right lower lobe characteristic of pneumonia. Small right pleural effusion and minimal left pleural effusion. (3) Nutrition, metabolism, and development symptoms Status: Acute Plan: Fluids: Normal saline IV at 100 ml per hour Electrolytes: Monitor and replete as necessary: Patient received KCl 40 mEq by mouth 1, calcium carbonate chew 500 mg by mouth 1 today for hypokalemia of 3.4 and hypocalcemia of 8.1 Nutrition: Regular basic diet GI ppx: Not currently indicated (4) No contraindication to deep vein thrombosis (DVT) prophylaxis Status: Acute Plan: Lovenox 40 mg subcutaneous every 24 hours SCDs bilaterally (Bean Richards MD R1) Bean Richards MD R1 Dec 10, 2016 11:25 Samara Bass MD Dec 14, 2016 09:10
[2016-12-10 12:00] VITALS: BP 109/63; PULSE 72; RESP 16; TEMP 99.3; O2SAT 96
[2016-12-10] MEDS ORDERED: PROPOFOL 200 MG/20 ML AMP IV ONE (12:00)
[2016-12-10] MEDS ORDERED: ONDANSETRON HCL 4 MG/2 ML VIAL IV PUSH ONE (12:00)
[2016-12-10] MEDS: VANCOMYCIN INJ 1,750 MG in SODIUM CHLORID 0.9% 500 ML INJ 500 ML IV SCH (13:02)
[2016-12-10] MEDS: SODIUM CHLORIDE 0.9% FLUSH 5 ML FLUSH FLUSH SCH ×2 (13:04→21:07)
[2016-12-10 14:34] LABS: CSF CRYPTOCOCCUS AG CONF ND (NOT DETECTD)
[2016-12-10 15:17] LABS: CRYPTOCOCCUS ANTIGEN Negative (Negative)
--- NOTE | 2016-12-10 15:18 | HHI.IDPN ---
Subjective Subjective Remarks is a 51 y/o CM who recently returned from [facility] and other places in [facility] where he stayed for approx 3 weeks. He was admitted for fever unknown origin (FUO). Chest pain and cough lead to CT chest which shows pneumonia. Overnight events reviewed. Low grade fevers and night sweats. Headache 3-4 intensity. No vision changes. No rash No joint pains Antibiotics Levaquin Doxy Lines Line sites with no e/o infection. Past Medical History amoebiasis giardiasis Allergies: Coded Allergies: No Known Allergies (Unverified , 12/07/16) Objective . Vital Signs Date Time Temp Pulse Resp B/P Pulse Ox O2 Delivery O2 Flow Rate FiO2 12/10/16 12:00 99.3 72 16 109/63 96 12/10/16 08:00 99.1 75 18 121/69 97 12/10/16 03:50 Room Air 12/10/16 03:50 98.9 71 18 114/68 94 12/10/16 00:30 Room Air 12/10/16 00:30 100.6 86 18 127/71 98 12/09/16 21:24 Room Air 12/09/16 21:24 100.8 77 20 123/73 97 12/09/16 19:39 100.0 84 20 125/70 95 12/09/16 18:38 18 12/09/16 17:02 100.4 86 18 139/75 97 12/09/16 12/09/16 12/10/16 15:00 23:00 07:00 Intake Total 1460 ml 1341 ml Output Total 1025 ml Balance 1460 ml 316 ml Intake Oral 960 ml 960 ml IV Total 500 ml 381 ml Output Urine Total 1025 ml # Voids 1 2 # Bowel Movements 0 . Laboratory Tests Test 12/08/16 12/10/16 21:16 04:22 White Blood Count 7.2 TH/MM3 5.7 TH/MM3 Red Blood Count 4.48 MIL/MM3 4.26 MIL/MM3 Hemoglobin 13.2 GM/DL 12.6 GM/DL Hematocrit 38.4 % 36.6 % Mean Corpuscular Volume 85.8 FL 86.0 FL Mean Corpuscular Hemoglobin 29.6 PG 29.5 PG Mean Corpuscular Hemoglobin 34.5 % 34.4 % Concent Red Cell Distribution Width 13.7 % 13.5 % Platelet Count 197 TH/MM3 209 TH/MM3 Mean Platelet Volume 7.7 FL 7.9 FL Neutrophils (%) (Auto) 74.9 % 59.0 % Lymphocytes (%) (Auto) 15.3 % 25.7 % Monocytes (%) (Auto) 9.2 % 12.6 % Eosinophils (%) (Auto) 0.3 % 2.0 % Basophils (%) (Auto) 0.3 % 0.7 % Neutrophils # (Auto) 5.4 TH/MM3 3.4 TH/MM3 Lymphocytes # (Auto) 1.1 TH/MM3 1.5 TH/MM3 Monocytes # (Auto) 0.7 TH/MM3 0.7 TH/MM3 Eosinophils # (Auto) 0.0 TH/MM3 0.1 TH/MM3 Basophils # (Auto) 0.0 TH/MM3 0.0 TH/MM3 CBC Comment DIFF FINAL DIFF FINAL Differential Comment Laboratory Tests Test 12/08/16 12/10/16 21:16 04:22 Sodium Level 139 MEQ/L 141 MEQ/L Potassium Level 3.7 MEQ/L 3.4 MEQ/L Chloride Level 105 MEQ/L 108 MEQ/L Carbon Dioxide Level 26.6 MEQ/L 25.3 MEQ/L Anion Gap 7 MEQ/L 8 MEQ/L Blood Urea Nitrogen 11 MG/DL 9 MG/DL Creatinine 0.98 MG/DL 1.00 MG/DL Estimat Glomerular Filtration 81 ML/MIN 79 ML/MIN Rate Random Glucose 112 MG/DL 96 MG/DL Calcium Level 7.6 MG/DL 8.1 MG/DL Total Bilirubin 0.3 MG/DL 0.5 MG/DL Aspartate Amino Transf 22 U/L 16 U/L (AST/SGOT) Alanine Aminotransferase 40 U/L 37 U/L (ALT/SGPT) Alkaline Phosphatase 56 U/L 51 U/L Total Protein 6.2 GM/DL 6.2 GM/DL Albumin 2.7 GM/DL 2.6 GM/DL C-Reactive Protein 13.90 MG/DL Microbiology Date/Time Procedure Status Source Growth 12/08/16 14:04 Cryptosporidium Exam - Final Complete Stool Stool NEGATIVE - NO CRYPTOSPORIDIUM ANTIGEN... 12/08/16 14:04 Stool Pus (IAN) - Final Complete Stool Stool RARE WBC 12/08/16 14:04 Giardia Antigen (IAN) - Final Complete Stool Stool NEGATIVE - NO GIARDIA ANTIGEN DETECTE... 12/08/16 19:08 Blood Fungal Culture Received Blood Peripheral Pending 12/08/16 19:08 Blood Fungal Culture Received Blood Peripheral Pending 12/08/16 20:00 Legionella Antigen - Final Complete Urine Random Urine PRESUMPTIVE NEGATIVE FOR LEGIONELLA P... 12/08/16 20:00 Streptococcus pneumoniae Antigen (M - Final Complete Urine Random Urine PRESUMPTIVE NEGATIVE FOR STREPTOCOCCU... Imaging Last Impressions Chest CT 12/08/16 0000 Signed Impressions: Service Date/Time: Thursday, December 08, 2016 14:58 - CONCLUSION: 1. Consolidative infiltrate in the right lower lobe characteristic of pneumonia. 2. Small right pleural effusion and minimal left pleural effusion. Bean Stevenson MD Head CT 12/07/16 1133 Signed Impressions: Service Date/Time: Wednesday, December 07, 2016 12:08 - CONCLUSION: Unremarkable exam. Bean Stevenson MD Physical Exam GENERAL: This is a well-nourished, well-developed patient, in no apparent distress. SKIN: Scars from prior mosquito bites. No maculopapular rash noted. HEAD: Atraumatic. Normocephalic. No temporal or scalp tenderness. EYES: Pupils equal round and reactive. Extraocular motions intact. No scleral icterus. No injection or drainage. ENT: Nose without bleeding, purulent drainage or septal hematoma. Throat without erythema, tonsillar hypertrophy or exudate. Uvula midline. Airway patent. NECK: Trachea midline. Supple, nontender, no meningeal signs. CARDIOVASCULAR: Heart sounds audible. No murmur appreciated. RESPIRATORY: Clear to auscultation. Breath sounds equal bilaterally. No wheezes , rales, or rhonchi. GASTROINTESTINAL: Abdomen soft, non-tender, nondistended. MUSCULOSKELETAL: Extremities without clubbing, cyanosis, or edema. No joint tenderness, effusion, or edema noted. No calf tenderness. Negative Homans sign bilaterally. NEUROLOGICAL: Awake and alert. Grossly nonfocal. Psych cooperative IV line sites with no evidence of infection. Assessment & Plan Remarks Fever (FUO) in a traveller to [place] Pneumonia (CAP, Atypical vs TB or Fungal infection). DDX:: Fungal (ParaCocci, Cocci and other fungal lung infections: histo, blasto, crypto, cocci) DDX: TB DDX: Parasitic lung diseases like Strongyloidosis, Visceral leishmaniasis. Headaches s/p LP Recs: Continue Zosyn IV Continue Vanco IV Continue Doxy oral. Pulmonary consult appreciated Plan for bronchoscopy today. Pt NPO. Follow viral resp culture Follow fungal Abs Follow for other fungal serologies. D.w pt and spouse in room: discussed all test results available, plan for the day. continue airborne isolation for now. Lori Joe MD Dec 10, 2016 15:18
[2016-12-10 16:00] VITALS: BP 130/75; PULSE 56; RESP 18; TEMP 98.4; O2SAT 98
[2016-12-10] MEDS ORDERED: LIDOCAINE HCL 2% 50 ML VIAL ONE (17:02)
[2016-12-10] MEDS ORDERED: MIDAZOLAM HCL 2 MG/2 ML VIAL ONE (17:10)
[2016-12-10 17:14] LABS: RMSP TITER IGG ND; RMSP TITER IGM ND; TYPHUS TITER IGG ND; TYPHUS TITER IGM ND
[2016-12-10] MEDS ORDERED: EPINEPHrine HCL (1:1000) 1 MG/ML VIAL OTHER ONE (17:47)
--- NOTE | 2016-12-10 18:19 | HHI.PR ---
Subjective Remarks 51 YOWM with Fever, recent travel to [facility], Right lung infilt Had Bronch No erythema or secretions no Endobronchial lesion Objective Vital Signs Vital Signs Date Time Temp Pulse Resp B/P Pulse Ox O2 Delivery O2 Flow Rate FiO2 12/10/16 16:00 98.4 56 18 130/75 98 12/10/16 12:00 99.3 72 16 109/63 96 12/10/16 08:00 99.1 75 18 121/69 97 12/10/16 03:50 Room Air 12/10/16 03:50 98.9 71 18 114/68 94 12/10/16 00:30 Room Air 12/10/16 00:30 100.6 86 18 127/71 98 12/09/16 21:24 Room Air 12/09/16 21:24 100.8 77 20 123/73 97 12/09/16 19:39 100.0 84 20 125/70 95 12/09/16 18:38 18 I/O 12/09/16 12/09/16 12/09/16 12/10/16 12/10/16 12/10/16 07:00 15:00 23:00 07:00 15:00 23:00 Intake Total 1460 ml 1341 ml Output Total 1025 ml Balance 1460 ml 316 ml Intake Oral 960 ml 960 ml IV Total 500 ml 381 ml Output Urine Total 1025 ml # Voids 1 2 # Bowel Movements 0 Result Diagram: 12/10/162 12/10/16421 Objective Remarks GENERAL: WBWn WM, NAD SKIN: Warm and dry. HEAD: Normocephalic. EYES: No scleral icterus. No injection or drainage. NECK: Supple, trachea midline. No JVD or lymphadenopathy. CARDIOVASCULAR: Regular rate and rhythm without murmurs, gallops, or rubs. RESPIRATORY: Breath sounds equal bilaterally. No accessory muscle use. GASTROINTESTINAL: Abdomen soft, non-tender, nondistended. MUSCULOSKELETAL: No cyanosis, or edema. BACK: Nontender without obvious deformity. No CVA tenderness. A/P Assessment and Plan Right Lung Infilterates / etiology Fever recent travel to [facility] S/P Bronch PLAN: Post bronch CXR Check bronch results Abx vanco, Zosyn and Doxi per ID DW at BS Navdeep Rahman MD Dec 10, 2016 18:19
--- NOTE | 2016-12-10 18:25 | MR ---
cc: JOEY GILL DATE 12/10/16 PROCEDURE Bronchoscopy. PREOPERATIVE DIAGNOSIS Right lung infiltrate with recent travel to [place] and persistent fever. POSTOPERATIVE DIAGNOSIS No endobronchial lesions seen. No significant erythema of the airways. PROCEDURE Informed consent was obtained from the patient. Procedure and the complications including complication of pneumothorax requiring, chest tube, bleeding complication, injury to blood vessel, lungs, nerves, arrhythmia, hypoxia explained and he consented for the procedure. The patient was brought to operating room under general anesthesia. LMA tube was placed by anesthesiologist. Bronchoscopy done through LMA tube. Vocal cords were normal. Trachea is normal. Bronchoscope was advanced to the left lung, left upper lingula and lower lobe were visualized. No significant secretions or erythema. Then bronchoscope pulled back advanced to the right lung, right upper, middle lower lobe were visualized. No significant secretions. Right lower lobe washings, brushing and biopsy was done. He has small amount of bleeding which was controlled with 3 mL of 1:20,000 epinephrine. He tolerated the procedure well. Biopsy sent for pathology, brushings sent for cytology. Washing is sent for routine culture, AFB fungal culture, cytology while cultures, cell count, differential and PCP, ova and parasites. Postprocedure chest x-ray ordered. MD DAVID Boyer/ /6:01 PM /6:06 PM JESSICA
--- NOTE | 2016-12-10 19:13 | RADRPT ---
EXAM DATE/TIME: 12/10/2016 18:04 [facility] COMPARISON: No previous studies available for comparison. INDICATIONS : Status Post Bronchoscopy to evaluate for TB. MEDICAL HISTORY : None. SURGICAL HISTORY : None. ENCOUNTER: Initial ACUITY: 1 day PAIN SCORE: Non-responsive. LOCATION: Bilateral chest FINDINGS: There is increased density identified at the right base. There is some minimal increased density at the lateral left base. A significant effusion is not clearly seen. The heart size is normal. CONCLUSION: Increased density seen at the right base and to a much lesser degree the lateral left base likely related to areas of consolidation. These areas are nonspecific. Hemanth Freeman MD on December 10, 2016 at 19:08 Board Certified Radiologist. This report was verified electronically.
[2016-12-10 19:53] LABS: R TYPHI IGM NOT DETECTED (()); R.TYPHI IGG NOT DETECTED (()); RMSF IGM NOT DETECTED (()); SPOTTED FEVER GROUP IGG NOT DETECTED (())
[2016-12-10 20:00] VITALS: BP 138/80; PULSE 66; RESP 20; TEMP 99.6; O2SAT 98
[2016-12-10] MEDS ORDERED: DEXAMETHASONE SOD PHOS 4 MG/ML VIAL IV PUSH ONE (21:30)
[2016-12-10] MEDS ORDERED: diphenhydrAMINE HCL 50 MG/ML VIAL IV PUSH ONE (21:30)
[2016-12-10] MEDS ORDERED: METOCLOPRAMIDE HCL 10 MG/2 ML VIAL IV PUSH ONE (21:30)
[2016-12-10 23:21] LABS: BRONCHOAVEOLAR EOSINOPHILS 5 %; BRONCHOAVEOLAR HISTIOCYTES 9 %; BRONCHOAVEOLAR LYMPHOCYTES 41 %; BRONCHOAVEOLAR NEUTROPHILS 45 %
[2016-12-11] VITALS (8 sets, daily range): BP systolic 102–116; BP diastolic 60–75; PULSE 58–69; RESP 16–20; TEMP 97.7–99.1; O2SAT 92–98
[2016-12-11] MEDS: PIPERACIL-TAZO 3.375 GM PREMIX 50 ML IV SCH ×4 (02:36→21:19)
[2016-12-11 03:53] LABS: CALIFORNIA ENCEPH AB IGG <1:4 (()); CALIFORNIA ENCEPH AB IGM <1:4 (()); EAST EQUINE ENCEPH AB IGG <1:4 (()); EAST EQUINE ENCEPH AB IGM <1:4 (()); ST LOUIS ENCEPH AB IGG <1:4 (()); ST LOUIS ENCEPH AB IGM <1:4 (())
[2016-12-11] MEDS: SODIUM CHLOR 0.9% 1000 ML INJ 1,000 ML IV SCH ×3 (05:00→21:19)
[2016-12-11 08:02] LABS: AUTOMATED NEUTROPHIL # 4.4 TH/MM3 (1.8-7.7); BASOPHIL % 0.2 % (0.0-2.0); EOSINOPHIL % 0.1 % (0.0-4.0); HEMATOCRIT 41.6 % (39.0-51.0); HEMO FLAGS DIFF FINAL; LYMPH % 13.4 % (9.0-44.0); LYMPHOCYTE # 0.7 TH/MM3 (1.0-4.8); MEAN CELL VOLUME 86.7 FL (80.0-100.0); MEAN CORPUSCULAR HEMOGLOBIN 29.2 PG (27.0-34.0); MEAN CORPUSCULAR HGB CONC 33.7 % (32.0-36.0); MONO % 2.9 % (0.0-8.0); NEUT % 83.4 % (16.0-70.0); PLATELET COUNT 263 TH/MM3 (150-450); RED CELL DISTRIBUTION WIDTH 13.5 % (11.6-17.2); WHITE BLOOD COUNT 5.3 TH/MM3 (4.0-11.0)
[2016-12-11 08:29] LABS: POTASSIUM 4.2 MEQ/L (3.5-5.1)
[2016-12-11] MEDS: SODIUM CHLORIDE 0.9% FLUSH 5 ML FLUSH FLUSH SCH ×2 (09:00→21:19)
[2016-12-11] MEDS: DOXYCYCLINE HYCLATE 100 MG CAP PO SCH ×2 (09:57→21:19)
--- NOTE | 2016-12-11 11:01 | HHI.FPPN ---
Subjective Remarks No acute events overnight. Afebrile vital signs stable overnight. Patient reports that he is continuing to have night sweats, pleuritic chest pain at the center of his chest, substernally. Patient reports resolution of his headache. He denies any rash or joint pain. He denies any nausea, vomiting, diarrhea, exertional chest pain, shortness of breath, fever, chills. (Bean Richards MD R1) Objective Vitals Vital Signs Date Time Temp Pulse Resp B/P Pulse Ox O2 Delivery O2 Flow Rate FiO2 12/11/16 08:00 98.2 58 18 115/75 95 12/11/16 04:00 98.8 69 20 115/69 93 12/11/16 00:00 99.1 69 20 116/71 92 12/10/16 20:20 Room Air 12/10/16 20:00 99.6 66 20 138/80 98 12/10/16 19:15 97.5 65 13 132/87 97 Nasal Cannula 2 12/10/16 19:00 60 12 144/84 98 Nasal Cannula 2 12/10/16 18:45 63 15 126/87 98 Nasal Cannula 2 12/10/16 18:30 74 18 139/84 97 Nasal Cannula 2 12/10/16 18:14 97.4 67 15 117/68 97 Nasal Cannula 2 12/10/16 16:00 98.4 56 18 130/75 98 12/10/16 12:00 99.3 72 16 109/63 96 I/O 12/10/16 12/10/16 12/10/16 12/11/16 12/11/16 12/11/16 07:00 15:00 23:00 07:00 15:00 23:00 Intake Total 1341 ml 1000 ml 787 ml 1172 ml Output Total 1025 ml 2250 ml 1000 ml 1000 ml Balance 316 ml -1250 ml -213 ml 172 ml Intake Oral 960 ml 240 ml 380 ml IV Total 381 ml 760 ml 507 ml 792 ml Other 280 ml Output Urine Total 1025 ml 2250 ml 1000 ml 1000 ml # Voids 2 # Bowel Movements 0 0 0 (Bean Richards MD R1) Result Diagram: 12/11/1628 12/11/16727 Imaging Last Impressions Chest X-Ray 12/10/16 0000 Signed Impressions: Service Date/Time: November 18:04 - CONCLUSION: Increased density seen at the right base and to a much lesser degree the lateral left base likely related to areas of consolidation. These areas are nonspecific. Hemanth Freeman MD Chest CT 12/08/16 0000 Signed Impressions: Service Date/Time: Thursday, December 08, 2016 14:58 - CONCLUSION: 1. Consolidative infiltrate in the right lower lobe characteristic of pneumonia. 2. Small right pleural effusion and minimal left pleural effusion. Bean Stevenson MD Head CT 12/07/16 1133 Signed Impressions: Service Date/Time: Wednesday, December 07, 2016 12:08 - CONCLUSION: Unremarkable exam. Bean Stevenson MD Objective Remarks GENERAL: No acute distress, nontoxic SKIN: Warm and dry. No petechia or purpura on exam. NO rash. HEAD: Atraumatic. Normocephalic. No scleral icterus. No injection or drainage. No nasal bleeding or discharge. Mucous membranes pink and moist. CARDIOVASCULAR: Regular rate and rhythm. No murmur appreciated. RESPIRATORY: No accessory muscle use. Right basilar crackles. Lungs otherwise clear to auscultation. GASTROINTESTINAL: Abdomen soft, non-tender, nondistended. MUSCULOSKELETAL: No obvious deformities. No clubbing. No cyanosis. No erythema or edema of legs, no calf tenderness. NEUROLOGICAL: Awake and alert. No obvious cranial nerve deficits. Motor grossly within normal limits. Normal speech. PSYCHIATRIC: Appropriate mood and affect; insight and judgment normal. BACK: Some soft tissue swelling appreciated around LP site. No erythema, warmth , tenderness, fluctuance. (Bean Richards MD R1) A/P Assessment and Plan 51-year-old man with no significant past medical history the history significant for innumerable bug bites acquired in [facility] presents with fever of unknown origin up to a high of 103, neck, back, joint pain, cough, chills, night sweats. Differential diagnosis includes pneumonia, URI, arthropod borne diseases, food and waterborne diseases, other infections, autoimmune etiologies, allergic/immune etiologies. Admitted for supportive treatment, infectious disease consult, pending workup. Discharge Planning Anticipate discharge once pt has been cleared by ID and pulmonology, and fevers are controlled. Time frame unclear. wdw Dr. Joe kristine Bass (Bean Richards MD R1) Attending Attestation Patient seen and examined with the resident team. Case reviewed and discussed Agree with plan of care as discussed with me and documented in the resident note. (Samara Bass MD) Problem List: (1) Fever of unknown origin Status: Acute Plan: 51-year-old man with no significant past medical history the history significant for innumerable bug bites acquired in [facility] presented with fever of unknown origin up to a high of 103, neck, back, joint pain, cough, chills, night sweats. Differential diagnosis includes pneumonia, URI, arthropod borne diseases, food and waterborne diseases, other infections, autoimmune etiologies, allergic/immune etiologies. Patient afebrile overnight, on antibiotic therapy If patient has fevers, residents are to be notified so that repeat blood cultures can be ordered. Infectious disease consulted, appreciate recommendations Follow-up pending labs below Monitor vital signs Monitor intake and output Pulmonology consult. Appreciate recommendations and bronchoscopy Medications: Doxycycline 100 mg PO BID (12/08 ) Tylenol 650 mg by mouth every 4 hours when necessary for pain, temperature, headache Motrin 400 mg by mouth every 4 hours when necessary for muscle pain Zosyn 3.375 g IV every 6 hours (12/09 - present) Vancomycin 1.75 g IV every 24 hours (12/09 - present) Work up: Head CT unremarkable. Patient had lumbar puncture in the emergency department, which was not concerning for meningitis. CSF cultures negative Malaria smear negative. No leukocytosis [employer] spotted fever, rickettsia, typhus fever, Zika virus PCR, pending CSF culture with no growth to date, no fungal elements seen Blood culture with no growth to date Stool cryptosporidium negative and Giardia negative, rare WBCs Hepatitis profile negative RPR nonreactive HIV negative UDS negative histoplasma antigen serum and urine, cryptococcal antigen serum, aspergillosis antibody IgG, fungal antibody serum Bronchoscopy results and cultures thus far unremarkable Influenza A/B antigen negative Legionella antigen negative Strep pneumo antigen negative (2) Pneumonia Status: Acute Plan: Chest CT suggestive of pneumonia Urine Legionella and strep pneumo antigens negative Antibiotic spectrum broadened due to continued fevers: Zosyn and vancomycin, per ID Discontinue Levaquin 750 mg IV daily () Pulmonology consulted, Dr. Rahman, appreciate recommendations and intervention Bronchoscopy results unremarkable Imaging: Chest CT from 12/08/16: Significant for consolidative infiltrate in the right lower lobe characteristic of pneumonia. Small right pleural effusion and minimal left pleural effusion. (3) Nutrition, metabolism, and development symptoms Status: Acute Plan: Fluids: Normal saline IV at 100 ml per hour Electrolytes: Monitor and replete as necessary Nutrition: Regular basic diet GI ppx: Not currently indicated (4) No contraindication to deep vein thrombosis (DVT) prophylaxis Status: Acute Plan: Lovenox 40 mg subcutaneous every 24 hours SCDs bilaterally (Bean Richards MD R1) Bean Richards MD R1 Dec 11, 2016 11:01 Samara Bass MD Dec 14, 2016 09:09
[2016-12-11] MEDS: VANCOMYCIN INJ 1,750 MG in SODIUM CHLORID 0.9% 500 ML INJ 500 ML IV SCH (12:00)
[2016-12-11 15:28] LABS: LAVAGE TOTAL WBC COUNT 0.8 MILLION (4.7-7.1)
[2016-12-11] MEDS: ACETAMINOPHEN 325 MG TAB PO PRN ×2 (16:29→21:20)
--- NOTE | 2016-12-11 19:05 | HHI.PR ---
Subjective Remarks 51 YOWM with Fever, recent travel to [facility], Right lung infilt Had Bronch No erythema or secretions no Endobronchial lesion bronchial cultures, AFB fungal smears neg Fever improved Objective Vital Signs Vital Signs Date Time Temp Pulse Resp B/P Pulse Ox O2 Delivery O2 Flow Rate FiO2 12/11/16 18:17 98 21 12/11/16 16:00 98.5 66 20 116/75 97 12/11/16 13:54 98 21 12/11/16 12:00 97.7 69 20 111/64 94 12/11/16 12:00 Room Air 12/11/16 08:00 98.2 58 18 115/75 95 12/11/16 08:00 Room Air 12/11/16 04:00 98.8 69 20 115/69 93 12/11/16 00:00 99.1 69 20 116/71 92 12/10/16 20:20 Room Air 12/10/16 20:00 99.6 66 20 138/80 98 12/10/16 19:15 97.5 65 13 132/87 97 Nasal Cannula 2 I/O 12/10/16 12/10/16 12/10/16 12/11/16 12/11/16 12/11/16 07:00 15:00 23:00 07:00 15:00 23:00 Intake Total 1341 ml 1000 ml 787 ml 1172 ml 1426 ml Output Total 1025 ml 2250 ml 1000 ml 1000 ml 1025 ml Balance 316 ml -1250 ml -213 ml 172 ml 401 ml Intake Oral 960 ml 240 ml 380 ml 1426 ml IV Total 381 ml 760 ml 507 ml 792 ml Other 280 ml Output Urine Total 1025 ml 2250 ml 1000 ml 1000 ml 1025 ml # Voids 2 # Bowel Movements 0 0 0 0 Result Diagram: 12/11/1628 12/11/16727 Objective Remarks GENERAL: WBWn WM, NAD SKIN: Warm and dry. HEAD: Normocephalic. EYES: No scleral icterus. No injection or drainage. NECK: Supple, trachea midline. No JVD or lymphadenopathy. CARDIOVASCULAR: Regular rate and rhythm without murmurs, gallops, or rubs. RESPIRATORY: Breath sounds equal bilaterally. No accessory muscle use. GASTROINTESTINAL: Abdomen soft, non-tender, nondistended. MUSCULOSKELETAL: No cyanosis, or edema. BACK: Nontender without obvious deformity. No CVA tenderness. A/P Assessment and Plan Right Lung Infilterates / etiology Fever recent travel to [facility] S/P Bronch PLAN: Abx vanco, Zosyn and Doxi per ID DW at [facility] Stable from pulm standpoint Avaialable prn over weekend. Navdeep Rahman MD Dec 11, 2016 19:05
--- NOTE | 2016-12-11 20:41 | RADRPT ---
EXAM DATE/TIME: 12/11/2016 18:01 [facility] COMPARISON: No previous studies available for comparison. INDICATIONS : Abscess. MEDICAL HISTORY : Bulging disk. Excessive sweating. SURGICAL HISTORY : Lumbar puncture. ENCOUNTER: Initial ACUITY: 2 days PAIN SCORE: 1/10 LOCATION: Left lumbar. AREA EVALUATED: Left lumbar area. FINDINGS: MASSES: None. FLUID COLLECTIONS: None. OTHER: Negative. CONCLUSION: No mass or fluid collection is seen in the lower back in the area of interest. Hemanth Freeman MD on December 11, 2016 at 20:38 Board Certified Radiologist. This report was verified electronically.
[2016-12-12] VITALS (7 sets, daily range): BP systolic 94–125; BP diastolic 51–79; PULSE 56–68; RESP 16–18; TEMP 97.5–98; O2SAT 95–98
[2016-12-12] MEDS: PIPERACIL-TAZO 3.375 GM PREMIX 50 ML IV SCH ×4 (02:36→20:42)
[2016-12-12 07:48] LABS: BASOPHIL % 0.2 % (0.0-2.0); EOSINOPHIL # 0.1 TH/MM3 (0-0.4); EOSINOPHIL % 1.7 % (0.0-4.0); HEMATOCRIT 36.5 % (39.0-51.0); HEMO FLAGS DIFF FINAL; LYMPH % 24.4 % (9.0-44.0); LYMPHOCYTE # 1.8 TH/MM3 (1.0-4.8); MEAN CELL VOLUME 86.5 FL (80.0-100.0); MEAN CORPUSCULAR HEMOGLOBIN 29.2 PG (27.0-34.0); MEAN CORPUSCULAR HGB CONC 33.7 % (32.0-36.0); MONO % 7.4 % (0.0-8.0); NEUT % 66.3 % (16.0-70.0); PLATELET COUNT 274 TH/MM3 (150-450); RED BLOOD COUNT 4.22 MIL/MM3 (4.50-5.90); RED CELL DISTRIBUTION WIDTH 13.1 % (11.6-17.2); WHITE BLOOD COUNT 7.5 TH/MM3 (4.0-11.0)
[2016-12-12] MEDS: SODIUM CHLOR 0.9% 1000 ML INJ 1,000 ML IV SCH (08:06)
[2016-12-12 08:15] LABS: ALKALINE PHOSPHATASE 50 U/L (45-117); ALT (GPT) 91 U/L (12-78); ANION GAP 8 MEQ/L (5-15); AST (GOT) 30 U/L (15-37); BICARBONATE 24.8 MEQ/L (21.0-32.0); BLOOD UREA NITROGEN 13 MG/DL (7-18); CHLORIDE 112 MEQ/L (98-107); GLOMERULAR FILTRATION RATE 82 ML/MIN (>89); POTASSIUM 3.7 MEQ/L (3.5-5.1); SODIUM (NA) 145 MEQ/L (136-145); TOTAL BILIRUBIN ADULT 0.3 MG/DL (0.2-1.0)
[2016-12-12] MEDS: DOXYCYCLINE HYCLATE 100 MG CAP PO SCH ×2 (08:51→20:42)
[2016-12-12] MEDS: SODIUM CHLORIDE 0.9% FLUSH 5 ML FLUSH FLUSH SCH ×2 (08:53→20:39)
[2016-12-12] MEDS: ACETAMINOPHEN 325 MG TAB PO PRN ×3 (09:59→20:43)
[2016-12-12] MEDS ORDERED: diphenhydrAMINE HCL 50 MG/ML VIAL IV PUSH ONE (10:45)
[2016-12-12] MEDS ORDERED: METOCLOPRAMIDE HCL 10 MG/2 ML VIAL IV PUSH ONE (10:45)
[2016-12-12] MEDS ORDERED: DEXAMETHASONE SOD PHOS 20 MG/5 ML VIAL IV PUSH ONE (10:45)
--- NOTE | 2016-12-12 11:39 | RADRPT ---
EXAM DATE/TIME: 12/12/2016 11:09 [facility] COMPARISON: CHEST SINGLE AP, December 10, 2016, 18:04. INDICATIONS : Shortness of breath. MEDICAL HISTORY : None. SURGICAL HISTORY : None. ENCOUNTER: Initial ACUITY: 1 day PAIN SCORE: 0/10 LOCATION: Bilateral chest FINDINGS: Substantially improved right base consolidation, now mild. There is also decreasing atelectasis of th e left base, now trace. No pleural effusion. No pneumothorax. Heart size stable, within normal limits. CONCLUSION: Decreasing right base infiltrate and left base atelectasis. Hemanth Baker MD on December 12, 2016 at 11:36 Board Certified Radiologist. This report was verified electronically.
--- NOTE | 2016-12-12 11:41 | HHI.FPPN ---
Subjective Remarks No acute events overnight. Afebrile vital signs stable overnight. Patient complains of a headache. He says when he presented to the emergency department, his headache was located behind his eyes. Today, he reports that his headache is at the center of his head. He describes his headache as a 10 out of 10, exacerbated by coughing, head movement, light and noise. Patient still complains of some pleuritic chest pain with deep respirations, but he reports that this pain is improving/decreasing. Patient denied any sweats or joint swelling overnight. Denies any fever, chills. He did have a diffuse rash after bronchoscopy; his took pictures and showed the medical team. She reports hydrating well by mouth. Patient denies lower back pain at LP site. (Bean Richards MD R1) Objective Vitals Vital Signs Date Time Temp Pulse Resp B/P Pulse Ox O2 Delivery O2 Flow Rate FiO2 12/12/16 08:40 97 21 12/12/16 08:00 98.0 59 16 116/67 97 12/12/16 04:00 97.6 61 16 94/51 95 12/12/16 00:00 97.5 62 16 105/57 96 12/11/16 20:30 Room Air 12/11/16 20:00 97.8 68 16 102/60 98 12/11/16 18:17 98 21 12/11/16 16:00 98.5 66 20 116/75 97 12/11/16 13:54 98 21 12/11/16 12:00 97.7 69 20 111/64 94 12/11/16 12:00 Room Air I/O 12/11/16 12/11/16 12/11/16 12/12/16 12/12/16 12/12/16 07:00 15:00 23:00 07:00 15:00 23:00 Intake Total 1172 ml 1944 ml 1018 ml 905 ml Output Total 1000 ml 1025 ml 300 ml 400 ml Balance 172 ml 919 ml 718 ml 505 ml Intake Oral 380 ml 1426 ml 360 ml 120 ml IV Total 792 ml 518 ml 658 ml 785 ml Output Urine Total 1000 ml 1025 ml 300 ml 400 ml # Bowel Movements 0 0 1 0 (Bean Richards MD R1) Result Diagram: 12/12/16 0550 12/12/16 0550 Imaging Last Impressions Chest X-Ray 12/12/16 0000 Signed Impressions: Service Date/Time: Monday, December 12, 2016 11:09 - CONCLUSION: Decreasing right base infiltrate and left base atelectasis. Hemanth Baker MD Soft Tissue Ultrasound 12/11/16 0000 Signed Impressions: Service Date/Time: Sunday, December 11, 2016 18:01 - CONCLUSION: No mass or fluid collection is seen in the lower back in the area of interest. Hemanth Freeman MD Chest CT 12/08/16 0000 Signed Impressions: Service Date/Time: Thursday, December 08, 2016 14:58 - CONCLUSION: 1. Consolidative infiltrate in the right lower lobe characteristic of pneumonia. 2. Small right pleural effusion and minimal left pleural effusion. Bean Stevenson MD Head CT 12/07/16 1133 Signed Impressions: Service Date/Time: Wednesday, December 07, 2016 12:08 - CONCLUSION: Unremarkable exam. Bean Stevenson MD Objective Remarks GENERAL: No acute distress, nontoxic SKIN: Warm and dry. No petechia or purpura on exam. NO rash. HEAD: Atraumatic. Normocephalic. No scleral icterus. No injection or drainage. No nasal bleeding or discharge. Mucous membranes pink and moist. CARDIOVASCULAR: Regular rate and rhythm. No murmur appreciated. RESPIRATORY: No accessory muscle use. Right basilar crackles. Lungs otherwise clear to auscultation. GASTROINTESTINAL: Abdomen soft, non-tender, nondistended. MUSCULOSKELETAL: No obvious deformities. No clubbing. No cyanosis. No erythema or edema of legs, no calf tenderness. NEUROLOGICAL: Awake and alert. No obvious cranial nerve deficits. Motor grossly within normal limits. Normal speech. PSYCHIATRIC: Appropriate mood and affect; insight and judgment normal. BACK: Some soft tissue swelling appreciated around LP site. No erythema, warmth , tenderness, fluctuance. (Bean Richards MD R1) A/P Assessment and Plan 51-year-old man with no significant past medical history the history significant for innumerable bug bites acquired in [facility] presents with fever of unknown origin up to a high of 103, neck, back, joint pain, cough, chills, night sweats. Differential diagnosis includes pneumonia, URI, arthropod borne diseases, food and waterborne diseases, other infections, autoimmune etiologies, allergic/immune etiologies. Admitted for supportive treatment, infectious disease consult, pending workup. Discharge Planning Anticipate discharge once pt has been cleared by ID and pulmonology, and fevers are controlled. Time frame unclear. wdw Dr. Heath Bass (Bean Richards MD R1) Attending Attestation Patient seen and examined with the resident team. Case reviewed and discussed Agree with plan of care as discussed with me and documented in the resident note. (Samara Bass MD) Problem List: (1) Fever of unknown origin Status: Acute Plan: 51-year-old man with no significant past medical history the history significant for innumerable bug bites acquired in [facility] presented with fever of unknown origin up to a high of 103, neck, back, joint pain, cough, chills, night sweats. Differential diagnosis includes pneumonia, URI, arthropod borne diseases, food and waterborne diseases, other infections, autoimmune etiologies, allergic/immune etiologies. Patient afebrile overnight, on antibiotic therapy If patient has fevers, residents are to be notified so that repeat blood cultures can be ordered. Infectious disease consulted, appreciate recommendations Follow-up pending labs below Monitor vital signs Monitor intake and output Pulmonology consult. Appreciate recommendations and bronchoscopy Medications: Doxycycline 100 mg PO BID (12/08 ) Tylenol 650 mg by mouth every 4 hours when necessary for pain, temperature, headache Motrin 400 mg by mouth every 4 hours when necessary for muscle pain Zosyn 3.375 g IV every 6 hours (12/09 - present) Vancomycin 1.75 g IV every 24 hours (12/09 - present) Work up: Head CT unremarkable. Patient had lumbar puncture in the emergency department, which was not concerning for meningitis. CSF cultures negative Malaria smear negative. No leukocytosis [employer] spotted fever, rickettsia, typhus fever, Zika virus PCR, pending CSF culture with no growth to date, no fungal elements seen Blood culture with no growth to date Stool cryptosporidium negative and Giardia negative, rare WBCs Hepatitis profile negative RPR nonreactive HIV negative UDS negative histoplasma antigen serum and urine, cryptococcal antigen serum, aspergillosis antibody IgG, fungal antibody serum Bronchoscopy results and cultures thus far unremarkable Influenza A/B antigen negative Legionella antigen negative Strep pneumo antigen negative (2) Pneumonia Status: Acute Plan: Chest CT suggestive of pneumonia Urine Legionella and strep pneumo antigens negative Antibiotic spectrum broadened due to continued fevers: Zosyn and vancomycin, per ID Discontinue Levaquin 750 mg IV daily () Pulmonology consulted, Dr. Rahman, appreciate recommendations and intervention Bronchoscopy results unremarkable Imaging: Chest CT from 12/08/16: Significant for consolidative infiltrate in the right lower lobe characteristic of pneumonia. Small right pleural effusion and minimal left pleural effusion. (3) Nutrition, metabolism, and development symptoms Status: Acute Plan: Fluids: Discontinued maintenance fluids as patient is hydrating well by mouth Electrolytes: Monitor and replete as necessary Nutrition: Regular basic diet GI ppx: Not currently indicated (4) No contraindication to deep vein thrombosis (DVT) prophylaxis Status: Acute Plan: Lovenox 40 mg subcutaneous every 24 hours SCDs bilaterally (Bean Richards MD R1) Bean Richards MD R1 Dec 12, 2016 11:41 Samara Bass MD Dec 14, 2016 09:09
[2016-12-12 11:53] LABS: HISTOPLASMA AG INTERPRETATION NEGATIVE (()); HISTOPLASMA AG RESULT NONE DETECTED (())
[2016-12-12] MEDS: VANCOMYCIN INJ 1,750 MG in SODIUM CHLORID 0.9% 500 ML INJ 500 ML IV SCH (12:00)
--- NOTE | 2016-12-12 22:01 | HHI.IDPN ---
Subjective Subjective Remarks is a 51 y/o CM who recently returned from [facility] and other places in [facility] where he stayed for approx 3 weeks. He was admitted for fever unknown origin (FUO). Chest pain and cough lead to CT chest which shows pneumonia. Overnight events reviewed. No fevers No night sweats Headache 3 out of 10 intensity off and on. Chest pain on deep inspiration. No vision changes. No rash No joint pains Antibiotics Zosyn IV Vanco IV Doxy Lines Line sites with no e/o infection. Past Medical History amoebiasis giardiasis Allergies: Coded Allergies: No Known Allergies (Unverified , 12/07/16) Objective . Vital Signs Date Time Temp Pulse Resp B/P Pulse Ox O2 Delivery O2 Flow Rate FiO2 12/12/16 20:00 97.9 56 18 125/79 98 12/12/16 16:00 97.8 68 16 123/77 95 12/12/16 12:00 98.0 67 16 118/76 98 12/12/16 12:00 16 12/12/16 08:40 97 21 12/12/16 08:00 98.0 59 16 116/67 97 12/12/16 08:00 95 Room Air 12/12/16 04:00 97.6 61 16 94/51 95 12/12/16 00:00 97.5 62 16 105/57 96 12/11/16 12/11/16 12/12/16 15:00 23:00 07:00 Intake Total 1944 ml 1018 ml 905 ml Output Total 1025 ml 300 ml 400 ml Balance 919 ml 718 ml 505 ml Intake Oral 1426 ml 360 ml 120 ml IV Total 518 ml 658 ml 785 ml Output Urine Total 1025 ml 300 ml 400 ml # Bowel Movements 0 1 0 . Laboratory Tests Test 12/11/16 12/12/16 07:28 05:50 White Blood Count 5.3 TH/MM3 7.5 TH/MM3 Red Blood Count 4.80 MIL/MM3 4.22 MIL/MM3 Hemoglobin 14.0 GM/DL 12.3 GM/DL Hematocrit 41.6 % 36.5 % Mean Corpuscular Volume 86.7 FL 86.5 FL Mean Corpuscular Hemoglobin 29.2 PG 29.2 PG Mean Corpuscular Hemoglobin 33.7 % 33.7 % Concent Red Cell Distribution Width 13.5 % 13.1 % Platelet Count 263 TH/MM3 274 TH/MM3 Mean Platelet Volume 7.6 FL 7.7 FL Neutrophils (%) (Auto) 83.4 % 66.3 % Lymphocytes (%) (Auto) 13.4 % 24.4 % Monocytes (%) (Auto) 2.9 % 7.4 % Eosinophils (%) (Auto) 0.1 % 1.7 % Basophils (%) (Auto) 0.2 % 0.2 % Neutrophils # (Auto) 4.4 TH/MM3 5.0 TH/MM3 Lymphocytes # (Auto) 0.7 TH/MM3 1.8 TH/MM3 Monocytes # (Auto) 0.2 TH/MM3 0.6 TH/MM3 Eosinophils # (Auto) 0.0 TH/MM3 0.1 TH/MM3 Basophils # (Auto) 0.0 TH/MM3 0.0 TH/MM3 CBC Comment DIFF FINAL DIFF FINAL Differential Comment Laboratory Tests Test 12/11/16 12/12/16 07:28 05:50 Sodium Level 140 MEQ/L 145 MEQ/L Potassium Level 4.2 MEQ/L 3.7 MEQ/L Chloride Level 106 MEQ/L 112 MEQ/L Carbon Dioxide Level 24.0 MEQ/L 24.8 MEQ/L Anion Gap 10 MEQ/L 8 MEQ/L Blood Urea Nitrogen 10 MG/DL 13 MG/DL Creatinine 0.96 MG/DL 0.97 MG/DL Estimat Glomerular Filtration 83 ML/MIN 82 ML/MIN Rate Random Glucose 146 MG/DL 104 MG/DL Calcium Level 8.4 MG/DL 7.9 MG/DL C-Reactive Protein 9.00 MG/DL Total Bilirubin 0.3 MG/DL Aspartate Amino Transf 30 U/L (AST/SGOT) Alanine Aminotransferase 91 U/L (ALT/SGPT) Alkaline Phosphatase 50 U/L Total Protein 5.4 GM/DL Albumin 2.4 GM/DL Microbiology Date/Time Procedure Status Source Growth 12/10/16 17:43 Gram Stain - Final Complete Bronchial Washings Right Lower Lobe 12/10/16 17:43 Bronchial Culture - Final Complete Bronchial Washings Right Lower Lobe NO GROWTH IN 48 HOURS. 12/10/16 17:43 Acid Fast Stain - Final Resulted Bronchial Washings Right Lower Lobe NO ACID FAST BACILLI SEEN 12/10/16 17:43 Mycobacterial Culture Resulted Bronchial Washings Right Lower Lobe Pending 12/10/16 17:43 Fungal Smear - Final Resulted Bronchial Washings Right Lower Lobe NO FUNGAL ELEMENTS SEEN. 12/10/16 17:43 Fungal Culture Resulted Bronchial Washings Right Lower Lobe Pending Imaging Last Impressions Chest CT 12/08/16 0000 Signed Impressions: Service Date/Time: Thursday, December 08, 2016 14:58 - CONCLUSION: 1. Consolidative infiltrate in the right lower lobe characteristic of pneumonia. 2. Small right pleural effusion and minimal left pleural effusion. Bean Stevenson MD Head CT 12/07/16 1133 Signed Impressions: Service Date/Time: Wednesday, December 07, 2016 12:08 - CONCLUSION: Unremarkable exam. Bean Stevenson MD Physical Exam GENERAL: This is a well-nourished, well-developed patient, in no apparent distress. SKIN: Scars from prior mosquito bites. No maculopapular rash noted. HEAD: Atraumatic. Normocephalic. No temporal or scalp tenderness. EYES: Pupils equal round and reactive. Extraocular motions intact. No scleral icterus. No injection or drainage. ENT: Nose without bleeding, purulent drainage or septal hematoma. Throat without erythema, tonsillar hypertrophy or exudate. Uvula midline. Airway patent. NECK: Trachea midline. Supple, nontender, no meningeal signs. CARDIOVASCULAR: Heart sounds audible. No murmur appreciated. RESPIRATORY: Right basilar crackles. Breath sounds equal bilaterally. GASTROINTESTINAL: Abdomen soft, non-tender, nondistended. MUSCULOSKELETAL: Extremities without clubbing, cyanosis, or edema. No joint tenderness, effusion, or edema noted. No calf tenderness. Negative Homans sign bilaterally. NEUROLOGICAL: Awake and alert. Grossly nonfocal. Psych cooperative IV line sites with no evidence of infection. Assessment & Plan Remarks Fever (FUO) in a traveller to [place] Pneumonia Likely CAP based on workup so far. Other DDx: Atypical vs TB or Fungal infection). DDX:: Fungal (ParaCocci, Cocci and other fungal lung infections: histo, blasto, crypto, cocci) DDX: TB DDX: Parasitic lung diseases like Strongyloidosis, Visceral leishmaniasis. Headaches s/p LP Recs: Continue Zosyn IV DC Vanco IV DC Doxy Start Levaquin oral (covers atypical and mouth kat) plan on additional 10 days. D.w pt and spouse: cultures negative. Likely viral with secondary bacterial pneumonia. If fevers recurr to come back to or nearest ED. Follow up with PCP and ID Dr.Reba Araiza if symptoms persist and follow up of labs pending. Neuro consult pending. If headaches persist consider MRI brain plus ? CSF leak patch af Sami pt and spouse in room: discussed all test results available, plan for the day. continue airborne isolation for now. Check MTB PCR in bronch sputum. If negative DC isolation. sami RN and collections rep. Lori Joe MD Dec 12, 2016 22:01
--- NOTE | 2016-12-12 22:09 | MB ---
cc: JOSSELYN CAZARES DATE OF CONSULTATION 12/12/16 REASON FOR CONSULTATION Headache. HISTORY OF PRESENT ILLNESS Mr. Roy is a 51-year-old man who is admitted with fever of unknown origin and severe headache. Initial CT scan of the head was normal. Chest CT showed a right lower lobe infiltrate and he is status post bronchoscopy for that. He had a lumbar puncture and the CSF analysis showed 11 WBCs, eight RBCs. CSF profile with 2% neutrophils, 32% lymphocytes, 66 monos, glucose 62, protein 35.9. Cryptococcal antigen was negative and viral encephalitis panel negative. His cultures have been negative of the spinal fluid. He states his headache has changed. Initially it was on the sides of his head and severe, now it is mainly in the top of his head. Initially it was behind his eyes as well. It also occurs in the occipital area, becomes severe at times. He thinks there may be some correlation with the dose of Zosyn and the headache. He has no prior history of headaches. NEUROLOGIC EXAMINATION His temperature is 97.9 degrees, pulse 56, respirations 18, blood pressure 125/79. Higher cortical functions normal. Cranial nerves intact. He has mild occipital tenderness. Motor exam - he has no focal weakness. LABORATORY DATA White count is 7500, hemoglobin 12.3, hematocrit 36%, platelet count 274,000. Sodium is 145, potassium 3.7, chloride 112, CO2 25, BUN is 13, creatinine 0.97, GFR is 82, PT 11.1, INR one, APTT 30.6. IMPRESSION Headache. The CSF is essentially normal. No sign of meningitis. I suspect the headache may be due to occipital neuralgia. RECOMMENDATIONS I would like to obtain an MRI and MRA of the brain. Also start Topamax in case of an occipital neuralgia for prevention. MD BEKA Garnica/ /9:49 PM /10:04 PM
[2016-12-13] VITALS (7 sets, daily range): BP systolic 115–134; BP diastolic 63–77; PULSE 69–87; RESP 16–20; TEMP 97.6–99.7; O2SAT 94–98
[2016-12-13] MEDS: PIPERACIL-TAZO 3.375 GM PREMIX 50 ML IV SCH ×4 (03:27→20:50)
[2016-12-13] MEDS: SODIUM CHLORIDE 0.9% FLUSH 5 ML FLUSH FLUSH SCH ×2 (09:00→20:48)
[2016-12-13] MEDS: LEVOFLOXACIN 500 MG TAB PO SCH (09:00)
[2016-12-13 10:10] LABS: AUTOMATED NEUTROPHIL # 5.4 TH/MM3 (1.8-7.7); BASOPHIL % 0.4 % (0.0-2.0); EOSINOPHIL # 0.2 TH/MM3 (0-0.4); EOSINOPHIL % 2.4 % (0.0-4.0); HEMATOCRIT 40.8 % (39.0-51.0); HEMO FLAGS DIFF FINAL; LYMPH % 14.4 % (9.0-44.0); LYMPHOCYTE # 1.1 TH/MM3 (1.0-4.8); MEAN CELL VOLUME 85.7 FL (80.0-100.0); MEAN CORPUSCULAR HEMOGLOBIN 29.8 PG (27.0-34.0); MEAN CORPUSCULAR HGB CONC 34.8 % (32.0-36.0); MONO % 8.4 % (0.0-8.0); NEUT % 74.4 % (16.0-70.0); PLATELET COUNT 383 TH/MM3 (150-450); RED BLOOD COUNT 4.76 MIL/MM3 (4.50-5.90); RED CELL DISTRIBUTION WIDTH 13.1 % (11.6-17.2); WHITE BLOOD COUNT 7.3 TH/MM3 (4.0-11.0)
--- NOTE | 2016-12-13 10:32 | HHI.FPPN ---
Subjective Remarks No acute events overnight. Pt with Tmax overnight of 99.7F, but pt still AF with VSS. Pt reports persistent headache that seems to be in the back of his neck and occasionally at the center of his head. Pt reports that Tylenol and not moving has been helping. He declined offer for treatment with IV meds. Pt reports that his pleuritic chest pain is improving. Pt denies night sweats, fever, chills, nausea, vomiting, diarrhea, rash, joint swelling overnight. Objective Vitals Vital Signs Date Time Temp Pulse Resp B/P Pulse Ox O2 Delivery O2 Flow Rate FiO2 12/13/16 08:00 96 Room Air 12/13/16 08:00 99.7 74 20 115/63 94 12/13/16 04:00 97.6 70 18 117/70 98 12/13/16 00:00 97.9 69 18 116/69 94 12/12/16 20:00 97.9 56 18 125/79 98 12/12/16 19:00 Room Air 12/12/16 16:00 97.8 68 16 123/77 95 12/12/16 12:00 98.0 67 16 118/76 98 12/12/16 12:00 16 I/O 12/12/16 12/12/16 12/12/16 12/13/16 12/13/16 12/13/16 07:00 15:00 23:00 07:00 15:00 23:00 Intake Total 905 ml 720 ml 580 ml 420 ml Output Total 400 ml 800 ml Balance 505 ml 720 ml 580 ml -380 ml Intake Oral 120 ml 720 ml 580 ml 420 ml IV Total 785 ml Output Urine Total 400 ml 800 ml # Voids 3 4 # Bowel Movements 0 0 0 0 Result Diagram: 12/13/16 0825 12/12/16 0550 Imaging Last Impressions Head Magnetic Resonance Angiography 12/13/16 0000 Signed Impressions: Service Date/Time: Tuesday, December 13, 2016 10:17 - CONCLUSION: MRA of the brain within normal limits. Fam Bella MD Brain MRI 12/13/16 0000 Signed Impressions: Service Date/Time: Tuesday, December 13, 2016 10:17 - CONCLUSION: 1. Sphenoid sinus disease with hemorrhagic or complex fluid seen in the sphenoid sinus. This finding is new compared to the prior CT of 12/07/2016. 2. no acute intracranial findings. Fam Bella MD Chest X-Ray 12/12/16 0000 Signed Impressions: Service Date/Time: Monday, December 12, 2016 11:09 - CONCLUSION: Decreasing right base infiltrate and left base atelectasis. Hemanth Baker MD Soft Tissue Ultrasound 12/11/16 0000 Signed Impressions: Service Date/Time: Sunday, December 11, 2016 18:01 - CONCLUSION: No mass or fluid collection is seen in the lower back in the area of interest. Hemanth Freeman MD Chest CT 12/08/16 0000 Signed Impressions: Service Date/Time: Thursday, December 08, 2016 14:58 - CONCLUSION: 1. Consolidative infiltrate in the right lower lobe characteristic of pneumonia. 2. Small right pleural effusion and minimal left pleural effusion. Bean Stevenson MD Head CT 12/07/16 1133 Signed Impressions: Service Date/Time: Wednesday, December 07, 2016 12:08 - CONCLUSION: Unremarkable exam. Bean Stevenson MD Objective Remarks GENERAL: No acute distress, nontoxic SKIN: Warm and dry. No petechia or purpura on exam. No rash. HEAD: Atraumatic. Normocephalic. No scleral icterus. No injection or drainage. No nasal bleeding or discharge. Mucous membranes pink and moist. CARDIOVASCULAR: Regular rate and rhythm. No murmur appreciated. RESPIRATORY: No accessory muscle use. Right basilar crackles improving. Lungs otherwise clear to auscultation. GASTROINTESTINAL: Abdomen soft, non-tender, nondistended. MUSCULOSKELETAL: No obvious deformities. No clubbing. No cyanosis. No erythema or edema of legs, no calf tenderness. NEUROLOGICAL: Awake and alert. No obvious cranial nerve deficits. Motor grossly within normal limits. Normal speech. PSYCHIATRIC: Appropriate mood and affect; insight and judgment normal. BACK: Some soft tissue swelling appreciated around LP site. No erythema, warmth , tenderness, fluctuance. A/P Assessment and Plan 51-year-old man with no significant past medical history the history significant for innumerable bug bites acquired in [facility] presents with fever of unknown origin up to a high of 103, neck, back, joint pain, cough, chills, night sweats. Differential diagnosis includes pneumonia, URI, sinus infection, arthropod borne diseases, food and waterborne diseases, other infections, autoimmune etiologies, allergic/immune etiologies. Admitted for supportive treatment, infectious disease consult, pending workup. Discharge Planning Anticipate discharge once pt has been cleared by ID and pulmonology and neurology, and fevers are controlled. Hopefully Wednesday. Plan to discharge patient on Augmentin 875 mg by mouth twice a day for 2 weeks when cleared by neurology and when we have the final lung pathology. Recommend follow-up in [address] Christal Araiza to follow-up on all tests and possible repeat MRI of brain. Follow up with neurology as well. Recommend follow up in [address] Valle if pt continues to have headache. sdw Dr. Frederic Bass Problem List: (1) Fever of unknown origin Status: Acute Plan: 51-year-old man with no significant past medical history the history significant for innumerable bug bites acquired in [facility] presented with fever of unknown origin up to a high of 103, neck, back, joint pain, cough, chills, night sweats. Differential diagnosis includes pneumonia, sinus infection , URI, arthropod borne diseases, food and waterborne diseases, other infections , autoimmune etiologies, allergic/immune etiologies. Patient afebrile overnight, on antibiotic therapy If patient has fevers, residents are to be notified so that repeat blood cultures can be ordered. Infectious disease consulted, appreciate recommendations Follow-up pending labs below Monitor vital signs Monitor intake and output Pulmonology consult. Appreciate recommendations and bronchoscopy Medications: Doxycycline 100 mg PO BID (12/08 - 12/12) Tylenol 650 mg by mouth every 4 hours when necessary for pain, temperature, headache Motrin 400 mg by mouth every 4 hours when necessary for muscle pain Zosyn 3.375 g IV every 6 hours (12/09 - present) Vancomycin 1.75 g IV every 24 hours (12/09 - 12/12) Levaquin 750 mg IV every 24 hours, received x1 on 12/08, discontinued for fever , resumed as Levaquin 500mg po qd on 12/13 Work up: Head CT unremarkable. Patient had lumbar puncture in the emergency department, which was not concerning for meningitis. CSF cultures negative Malaria smear negative. No leukocytosis [place] spotted fever, rickettsia, typhus fever, pending --Zika virus PCR not detected CSF culture with no growth to date, no fungal elements seen Blood culture with no growth to date Stool cryptosporidium negative and Giardia negative, rare WBCs Hepatitis profile negative RPR nonreactive HIV negative UDS negative histoplasma antigen serum and urine, cryptococcal antigen serum, aspergillosis antibody IgG, fungal antibody serum Bronchoscopy results and cultures thus far unremarkable Influenza A/B antigen negative Legionella antigen negative Strep pneumo antigen negative (2) Pneumonia Status: Acute Plan: Chest CT suggestive of pneumonia Urine Legionella and strep pneumo antigens negative Antibiotic spectrum broadened due to continued fevers: Zosyn IV and Levaquin po daily as above Pulmonology consulted, Dr. Rahman, appreciate recommendations and intervention Bronchoscopy results unremarkable Imaging: Chest CT from 12/08/16: Significant for consolidative infiltrate in the right lower lobe characteristic of pneumonia. Small right pleural effusion and minimal left pleural effusion. (3) Sphenoid sinusitis Status: Acute Plan: Brain MRI from 12/13/16 showed 1. Sphenoid sinus disease with hemorrhagic or complex fluid seen in the sphenoid sinus. This finding is new compared to the prior CT of 12/07/2016. -Zosyn and Levquin as above -Consider d/c on Augmentin (4) Nutrition, metabolism, and development symptoms Status: Acute Plan: Fluids: Discontinued maintenance fluids as patient is hydrating well by mouth Electrolytes: Monitor and replete as necessary Nutrition: Regular basic diet GI ppx: Not currently indicated (5) No contraindication to deep vein thrombosis (DVT) prophylaxis Status: Acute Plan: Lovenox 40 mg subcutaneous every 24 hours SCDs bilaterally Bean Richards MD R1 Dec 13, 2016 10:32
[2016-12-13] MEDS ORDERED: GADODIAMIDE PF 287 MG/ML 20 ML VIAL (for RAD MRI) IV ONE (10:37)
[2016-12-13 10:43] LABS: ALKALINE PHOSPHATASE 59 U/L (45-117); ALT (GPT) 83 U/L (12-78); ANION GAP 9 MEQ/L (5-15); AST (GOT) 18 U/L (15-37); BLOOD UREA NITROGEN 8 MG/DL (7-18); CHLORIDE 105 MEQ/L (98-107); GLOMERULAR FILTRATION RATE 78 ML/MIN (>89); POTASSIUM 3.6 MEQ/L (3.5-5.1); SODIUM (NA) 139 MEQ/L (136-145); TOTAL BILIRUBIN ADULT 0.5 MG/DL (0.2-1.0)
[2016-12-13] MEDS: TOPIRAMATE 25 MG TAB PO SCH ×2 (11:00→18:31)
--- NOTE | 2016-12-13 11:03 | RADRPT ---
EXAM DATE/TIME: 12/13/2016 10:17 [facility] COMPARISON: CT BRAIN W/O CONTRAST, December 07, 2016, 12:08. INDICATIONS : Cephalgia. CONTRAST: 16 cc Omniscan (gadodiamide) IV MEDICAL HISTORY : None. SURGICAL HISTORY : None. ENCOUNTER: Initial ACUITY: 2 weeks PAIN SCORE: 5/10 LOCATION: cranial TECHNIQUE: Multiplanar, multisequence MRI of the brain was performed both prior to and following the administrat ion of paramagnetic contrast. FINDINGS: CEREBRUM: The ventricles are normal for age. No evidence of midline shift, mass lesion, hemorrhage or acute in farction. No extraaxial fluid collections are seen. The pituitary gland and suprasellar cistern are normal in configuration. WHITE MATTER: No significant signal abnormalities are seen in the white matter. POSTERIOR FOSSA: The cerebellum and brainstem are intact. The 4th ventricle is midline. The cerebellopontine angle is unremarkable. The cerebellar tonsils are normal in position. DIFFUSION IMAGING: No focal areas of restricted diffusion are seen. No evidence of acute infarction. EXTRACRANIAL: Complex nonenhancing fluid filling the sphenoid sinus. POST-CONTRAST: No abnormal areas of parenchymal or dural enhancement. No evidence of blood-brain barrier breakdown. CONCLUSION: 1. Sphenoid sinus disease with hemorrhagic or complex fluid seen in the sphenoid sinus. This finding is new compared to the prior CT of 12/07/2016. 2. no acute intracranial findings. Fam Bella MD on December 13, 2016 at 10:57 Board Certified Radiologist. This report was verified electronically.
--- NOTE | 2016-12-13 11:05 | RADRPT ---
EXAM DATE/TIME: 12/13/2016 10:17 [facility] COMPARISON: No previous studies available for comparison. INDICATIONS : Cephalgia. MEDICAL HISTORY : None. SURGICAL HISTORY : None. ENCOUNTER: Initial ACUITY: 2 weeks PAIN SCORE: 5/10 LOCATION: cranial Please note a normal MRA of the brain does not entirely exclude the possibility of a small aneurysm, nor the possibility of distal intracranial vessel disease. TECHNIQUE: 3D time of flight MRA was performed. Source images, multiplanar STS MIP, and 3D volume MIP reconstru ctions were reviewed. FINDINGS: There is excellent visualization of the major intracranial arteries out to the second-order branch ve ssels. There is no evidence for aneurysm, vessel truncation or stenosis, and no evidence for vascula r malformation. CONCLUSION: MRA of the brain within normal limits. Fam Bella MD on December 13, 2016 at 11:02 Board Certified Radiologist. This report was verified electronically.
--- NOTE | 2016-12-13 11:45 | HHI.PR ---
Review/Management Diagnosis Sphenoid sinusitis Plan ENT consult Diagnosis/Plan: Subjective Subjective Comments No acute events reported still with headache in frontal area Active Medications Current Medications Medications (Trade) Dose Ordered Sig/Marcia Route Start Time Stop Time Status Last Admin (NS Flush) 2 ml UNSCH PRN FLUSH 12/07/16 18:15 (NS Flush) 2 ml BID FLUSH 12/07/16 21:00 12/13/16 09:00 (Tylenol) 650 mg Q4H PRN PO 12/07/16 18:15 12/12/16 20:43 (Zofran Inj) 4 mg Q6H PRN IVP 12/07/16 18:15 (Reglan Inj) 5 mg Q6H PRN IV PUSH 12/07/16 18:15 (Restoril) 15 mg HS PRN PO 12/07/16 18:15 (Narcan Inj) 0.4 mg UNSCH PRN IV 12/07/16 18:15 Ibuprofen 400 mg 400 mg Q4H PRN PO 12/07/16 18:15 12/09/16 05:43 Piperacillin Sod/ Tazobactam Sod 50 ml @ 100 mls/hr Q6H IV 12/09/16 21:00 12/13/16 09:00 (Lr 1000 ml Inj) 1,000 ml @ 30 mls/hr Q24H IV 12/10/16 10:15 (Levaquin) 500 mg DAILY PO 12/13/16 09:00 12/13/16 09:00 (Topamax) 25 mg DAILY PO 12/13/16 11:00 Allergies Allergies Coded Allergies No Known Allergies (Unverified12/07/16) Exam I&O / VS 12/12/16 12/12/16 12/13/16 15:00 23:00 07:00 Intake Total 720 ml 580 ml 420 ml Output Total 800 ml Balance 720 ml 580 ml -380 ml Intake Oral 720 ml 580 ml 420 ml Output Urine Total 800 ml # Voids 3 4 # Bowel Movements 0 0 0 Vital Signs Date Time Temp Pulse Resp B/P Pulse Ox O2 Delivery O2 Flow Rate FiO2 12/13/16 08:00 96 Room Air 12/13/16 08:00 99.7 74 20 115/63 94 12/13/16 04:00 97.6 70 18 117/70 98 12/13/16 00:00 97.9 69 18 116/69 94 12/12/16 20:00 97.9 56 18 125/79 98 12/12/16 19:00 Room Air 12/12/16 16:00 97.8 68 16 123/77 95 12/12/16 12:00 98.0 67 16 118/76 98 12/12/16 12:00 16 Exam Comments alert , speech normal CN normal Motor--no focal deficit Objective Radiology Results MRI brain--fluid and possible hemorrhage in sphenoid sinus MRA normal Micro and Labs Laboratory Tests Test 12/13/16 08:25 White Blood Count 7.3 Red Blood Count 4.76 Hemoglobin 14.2 Hematocrit 40.8 Mean Corpuscular Volume 85.7 Mean Corpuscular Hemoglobin 29.8 Mean Corpuscular Hemoglobin 34.8 Concent Red Cell Distribution Width 13.1 Platelet Count 383 Mean Platelet Volume 7.5 Neutrophils (%) (Auto) 74.4 Lymphocytes (%) (Auto) 14.4 Monocytes (%) (Auto) 8.4 Eosinophils (%) (Auto) 2.4 Basophils (%) (Auto) 0.4 Neutrophils # (Auto) 5.4 Lymphocytes # (Auto) 1.1 Monocytes # (Auto) 0.6 Eosinophils # (Auto) 0.2 Basophils # (Auto) 0.0 CBC Comment DIFF FINAL Differential Comment Sodium Level 139 Potassium Level 3.6 Chloride Level 105 Carbon Dioxide Level 25.0 Anion Gap 9 Blood Urea Nitrogen 8 Creatinine 1.02 Estimat Glomerular Filtration 78 Rate Random Glucose 92 Calcium Level 8.6 Total Bilirubin 0.5 Aspartate Amino Transf 18 (AST/SGOT) Alanine Aminotransferase 83 (ALT/SGPT) Alkaline Phosphatase 59 Total Protein 6.9 Albumin 3.1 Date/Time Procedure Status Source Growth 12/13/16 03:41 Acid Fast Stain Ordered Sputum Expectorated Sputum Pending 12/13/16 03:41 Mycobacterial Culture Ordered Sputum Expectorated Sputum Pending 12/10/16 17:43 Gram Stain - Final Complete Bronchial Washings Right Lower Lobe 12/10/16 17:43 Bronchial Culture - Final Complete Bronchial Washings Right Lower Lobe NO GROWTH IN 48 HOURS. 12/10/16 17:43 Fungal Smear - Final Resulted Bronchial Washings Right Lower Lobe NO FUNGAL ELEMENTS SEEN. 12/10/16 17:43 Fungal Culture Resulted Bronchial Washings Right Lower Lobe Pending 12/10/16 17:43 Acid Fast Stain - Final Resulted Bronchial Washings Right Lower Lobe NO ACID FAST BACILLI SEEN 12/10/16 17:43 Mycobacterial Culture Resulted Bronchial Washings Right Lower Lobe Pending 12/08/16 20:00 Legionella Antigen - Final Complete Urine Random Urine PRESUMPTIVE NEGATIVE FOR LEGIONELLA P... 12/08/16 20:00 Streptococcus pneumoniae Antigen (M - Final Complete Urine Random Urine PRESUMPTIVE NEGATIVE FOR STREPTOCOCCU... 12/08/16 19:08 Blood Fungal Culture Received Blood Peripheral Pending 12/08/16 19:08 Blood Fungal Culture Received Blood Peripheral Pending 12/08/16 14:04 Cryptosporidium Exam - Final Complete Stool Stool NEGATIVE - NO CRYPTOSPORIDIUM ANTIGEN... 12/08/16 14:04 Stool Pus (IAN) - Final Complete Stool Stool RARE WBC 12/08/16 14:04 Giardia Antigen (IAN) - Final Complete Stool Stool NEGATIVE - NO GIARDIA ANTIGEN DETECTE... Jhonathan Valle PhD MD Dec 13, 2016 11:45
--- NOTE | 2016-12-13 18:04 | HHI.PR ---
Addendum to Inpatient Note Addendum Reason: Additional Documentation Additional Information INTERSERVICE TRANSFER SUMMARY Pt was admitted on 12/07/16 for fever of unknown origin. Pt is an otherwise healthy 51 year old man who was traveling in [facility] for a month when he started getting fevers as high as 103F. Of note, pt had many bug bites while in [facility]. Pt also complained of headache, which was responsive to Reglan, Benadryl, Decadron cocktail in ED. ID was consulted and started pt on doxycycline for possible arthropod-borne disease. ID initiated extensive workup , which is all either negative or pending. Also, ordered CT of chest, which showed a pneumonia. Pt received one dose of Levaquin IV on 12/08 and then was started on empiric treatment with Vancomycin and Zosyn from 12/09 until 12/12. Vanco was discontinued and Levaquin PO was started on 12/13; Zosyn was continued. Pulmonology was also consulted and performed a bronchoscopy, which was grossly and pathologically normal thus far. Pt can be taken off contact precautions if and when bronchial mycobacterial culture return negative. Pt continued to complain of headache, so neurology was consulted. Ordered MRI of head, which showed sphenoid sinus disease with hemorrhage vs complex fluid collection. Consider steroids and discharge on Augmentin. Bean Richards MD R1 Dec 13, 2016 18:04
[2016-12-13] MEDS: ACETAMINOPHEN 325 MG TAB PO PRN (20:50)
[2016-12-14] VITALS (7 sets, daily range): BP systolic 102–126; BP diastolic 57–78; PULSE 63–74; RESP 16–24; TEMP 98–98.4; O2SAT 94–98
[2016-12-14] MEDS: PIPERACIL-TAZO 3.375 GM PREMIX 50 ML IV SCH ×4 (03:10→21:00)
[2016-12-14] MEDS: ACETAMINOPHEN 325 MG TAB PO PRN ×4 (03:52→16:08)
[2016-12-14] MEDS: LEVOFLOXACIN 500 MG TAB PO SCH (08:16)
[2016-12-14] MEDS: SODIUM CHLORIDE 0.9% FLUSH 5 ML FLUSH FLUSH SCH ×2 (08:21→21:14)
[2016-12-14 09:33] LABS: HISTOPLASMA ANTIGEN UR RESULT Negative (Negative)
--- NOTE | 2016-12-14 09:43 | MB ---
cc: JAKUB ROBLES MD DATE OF CONSULTATION: 12/14/2016 CHIEF COMPLAINT Headache. HISTORY OF PRESENT ILLNESS A 51-year-old male who was admitted for fever of unknown origin as well as pneumonia. The patient developed a severe headache while in the hospital. His initial CT scan showed a normal head CT but as of yesterday he had an MRI scan for the severe headache that showed some concern for a change to the sphenoid sinus. This was a roving changer a period of six days. The patient reports that the headache is still present, not as severe, mostly occipital in the top of his head. He is denying any true visual changes. He is denying any thin rhinorrhea. He is denying any salty taste in his mouth. He is denying any history of epistaxis or sinus disease. PAST MEDICAL HISTORY 1. Amebiasis. 2. Lyme disease. MEDICATIONS Current medications: Please see EMR. ALLERGIES No known drug allergies. SOCIAL HISTORY He just recently returned from a four-week vacation in [facility]. He drinks socially. No drug use. REVIEW OF SYSTEMS As per the HPI. PHYSICAL EXAMINATION GENERAL: The patient is alert and oriented x3, in no acute distress. HENT: Nasal exam with normal-appearing mucosa. Oral cavity has normal-appearing mucosa. Nasal endoscopy at bedside using a flexible scope showed normal-appearing mucosa. The inferior turbinates as well as the middle turbinates were normal-appearing bilaterally with pink mucosa that is healthy-appearing. Sliding the scope just medial to the middle turbinate towards the superior turbinate I am able to see the face of the sphenoid sinus. I do not see the ostium very well. However, I see the opening to the antrum and there is all pink, healthy-appearing mucosa without evidence of blood, bloody discharge, thin rhinorrhea or significant purulent discharge. The scope was then passed into the left side in the nasal cavity and the left side appeared exactly the same with normal-appearing mucosa that was healthy and pink. The middle turbinates as well as the inferior turbinates were normal-appearing. As the scope passed medial to the middle turbinate towards the superior turbinate the face of the sphenoid was able to be visualized. Once again there was no significant findings noted with normal pink appearing mucosa. The ostium was too narrowed for the scope to pass through. There was significant deflexion on this side of the nose with the nasal septum but the patient tolerated the scope well. NECK: No palpable adenopathy. IMPRESSION AND PLAN At this time I am not quite sure what would cause the change that was noted within just six days of the MRI scan. Unfortunately the MRI scan to me shows what could be a fluid collection in the septum of the sphenoid sinus. Both the right and left side of the sphenoid sinus appear somewhat normal. It is very difficult to tell as it is an MRI scan which is not the best way to evaluate a sinus. I am not quite sure what the fluid collection possibly is. It is possible that it could be a spontaneous CSF leak or possibly hemorrhage. At this time my recommendation is for a CT scan of the sinus with IV contrast to further evaluate all the sinuses as well as the skull base. Should this be determined to be an active either hemorrhage or leak into the sphenoid sinus as well as the septum of the sphenoid sinus, the patient will likely need to be transferred to the [facility] to be evaluated by a skull base surgeon such as Dr. Gandhi, as the sphenoid sinus has significant difficulties associated with operating on it in a smaller institution without a skull base surgeon. At this time further recommendations will wait until the CT scan of the sinus with IV contrast is completed. Jakub STAPLETON/BT /8:56 AM /9:21 AM
--- NOTE | 2016-12-14 10:30 | HHI.FPPN ---
Subjective Remarks Patient continues to have a headache "in the center of my head." Tylenol helps. Has chest pain, fever, chills. However, he has felt clammy. He states that ENT saw him this morning and they're planning on doing a CT later today. ( Jhonathan Temple MD R2) Objective Vitals Vital Signs Date Time Temp Pulse Resp B/P Pulse Ox O2 Delivery O2 Flow Rate FiO2 12/14/16 08:00 98.2 66 24 109/66 94 12/14/16 07:15 Room Air 12/14/16 04:00 98.0 63 16 106/58 95 12/14/16 00:00 98.1 66 18 102/57 96 12/13/16 20:00 98.9 73 19 122/72 97 12/13/16 19:00 Room Air 12/13/16 16:00 99.0 76 20 134/77 98 12/13/16 15:03 96 21 12/13/16 12:00 98.9 87 16 119/66 97 I/O 12/13/16 12/13/16 12/13/16 12/14/16 12/14/16 12/14/16 07:00 15:00 23:00 07:00 15:00 23:00 Intake Total 420 ml 720 ml 480 ml 420 ml Output Total 800 ml Balance -380 ml 720 ml 480 ml 420 ml Intake Oral 420 ml 720 ml 480 ml 420 ml Output Urine Total 800 ml # Voids 4 3 # Bowel Movements 0 1 0 0 (Jhonathan Temple MD R2) Result Diagram: 12/13/16 0825 12/13/16 0825 Imaging Last Impressions Head Magnetic Resonance Angiography 12/13/16 0000 Signed Impressions: Service Date/Time: Tuesday, December 13, 2016 10:17 - CONCLUSION: MRA of the brain within normal limits. Fam Bella MD Brain MRI 12/13/16 0000 Signed Impressions: Service Date/Time: Tuesday, December 13, 2016 10:17 - CONCLUSION: 1. Sphenoid sinus disease with hemorrhagic or complex fluid seen in the sphenoid sinus. This finding is new compared to the prior CT of 12/07/2016. 2. no acute intracranial findings. Fam Bella MD Chest X-Ray 12/12/16 0000 Signed Impressions: Service Date/Time: Monday, December 12, 2016 11:09 - CONCLUSION: Decreasing right base infiltrate and left base atelectasis. Hemanth Baker MD Soft Tissue Ultrasound 12/11/16 0000 Signed Impressions: Service Date/Time: Sunday, December 11, 2016 18:01 - CONCLUSION: No mass or fluid collection is seen in the lower back in the area of interest. Hemanth Freeman MD Chest CT 12/08/16 0000 Signed Impressions: Service Date/Time: Thursday, December 08, 2016 14:58 - CONCLUSION: 1. Consolidative infiltrate in the right lower lobe characteristic of pneumonia. 2. Small right pleural effusion and minimal left pleural effusion. Bean Stevenson MD Head CT 12/07/16 1133 Signed Impressions: Service Date/Time: Wednesday, December 07, 2016 12:08 - CONCLUSION: Unremarkable exam. Bean Stevenson MD Objective Remarks GENERAL: No acute distress, nontoxic SKIN: Warm and dry. No petechia or purpura on exam. No rash. HEAD: Atraumatic. Normocephalic. No scleral icterus. No injection or drainage. No nasal bleeding or discharge. Mucous membranes pink and moist. CARDIOVASCULAR: Regular rate and rhythm. No murmur appreciated. RESPIRATORY: No accessory muscle use. Clear to auscultation bilaterally. GASTROINTESTINAL: Abdomen soft, non-tender, nondistended. MUSCULOSKELETAL: No obvious deformities. No clubbing. No cyanosis. No erythema or edema of legs, no calf tenderness. NEUROLOGICAL: Awake and alert. No obvious cranial nerve deficits. Motor grossly within normal limits. Normal speech. PSYCHIATRIC: Appropriate mood and affect; insight and judgment normal. BACK: Normal in appearance. No erythema, warmth, tenderness, fluctuance. ( Jhonathan Temple MD R2) A/P Assessment and Plan 51-year-old man with no significant past medical history the history significant for innumerable bug bites acquired in [facility] presents with fever of unknown origin up to a high of 103, neck, back, joint pain, cough, chills, night sweats. Differential diagnosis includes pneumonia, URI, sinus infection, arthropod borne diseases, food and waterborne diseases, other infections, autoimmune etiologies, allergic/immune etiologies. Admitted for supportive treatment, infectious disease consult. Discharge Planning Anticipate discharge once pt has been cleared by ID, ENT, pulmonology, neurology. Plan to discharge patient on Augmentin 875 mg by mouth twice a day for 2 weeks when cleared by neurology and when we have the final lung pathology. Recommend follow-up in [address] Christal Araiza to follow-up on all tests and possible repeat MRI of brain. Follow up with neurology as well. Recommend follow up in [address] Valle if pt continues to have headache. (Jhonathan Temple MD R2) Attending Attestation Patient seen and examined. Case reviewed and discussed Agree with plan of care as discussed with me and documented in the resident note. (Samara Bass MD) Problem List: (1) Fever of unknown origin Status: Acute Plan: 51-year-old man with no significant past medical history the history significant for innumerable bug bites acquired in [facility] presented with fever of unknown origin up to a high of 103, neck, back, joint pain, cough, chills, night sweats. Differential diagnosis includes pneumonia, sinus infection , URI, arthropod borne diseases, food and waterborne diseases, other infections , autoimmune etiologies, allergic/immune etiologies. Patient afebrile overnight, on antibiotic therapy If patient has fevers, residents are to be notified so that repeat blood cultures can be ordered. Infectious disease consulted, appreciate recommendations -ENT consult. Obtain CT sinuses with and without contrast. Pulmonology consult. Appreciate recommendations and bronchoscopy Antibiotics: Doxycycline 100 mg PO BID (12/08 - 12/12) Zosyn 3.375 g IV every 6 hours (12/09 - present) Vancomycin 1.75 g IV every 24 hours (12/09 - 12/12) Levaquin 750 mg IV every 24 hours, received x1 on 12/08, discontinued for fever , resumed as Levaquin 500mg po qd on 12/13 Pain medications: Tylenol 650 mg by mouth every 4 hours when necessary for pain, temperature, headache Motrin 400 mg by mouth every 4 hours when necessary for muscle pain Work up: Head CT 12/07 unremarkable. Patient had lumbar puncture in the emergency department, which was not concerning for meningitis. CSF cultures negative Malaria smear negative. No leukocytosis [place] spotted fever, rickettsia, typhus fever, pending --Zika virus PCR not detected CSF culture with no growth to date, no fungal elements seen Blood culture with no growth to date Stool cryptosporidium negative and Giardia negative, rare WBCs Hepatitis profile negative RPR nonreactive HIV negative UDS negative histoplasma antigen serum and urine, cryptococcal antigen serum, aspergillosis antibody IgG, fungal antibody serum Bronchoscopy results and cultures thus far unremarkable Influenza A/B antigen negative Legionella antigen negative Strep pneumo antigen negative (2) Pneumonia Status: Acute Plan: Chest CT suggestive of pneumonia Urine Legionella and strep pneumo antigens negative -Antibiotics as above Pulmonology consulted, Dr. Rahman, appreciate recommendations and intervention Bronchoscopy results unremarkable Imaging: Chest CT from 12/08/16: Significant for consolidative infiltrate in the right lower lobe characteristic of pneumonia. Small right pleural effusion and minimal left pleural effusion. (3) Sphenoid sinusitis Status: Acute Plan: Brain MRI from 12/13/16 showed 1. Sphenoid sinus disease with hemorrhagic or complex fluid seen in the sphenoid sinus. This finding is new compared to the prior CT of 12/07/2016. -ENT consult as above; obtaining CT sinuses with IV contrast. (4) Nutrition, metabolism, and development symptoms Status: Acute Plan: Fluids: Discontinued maintenance fluids as patient is hydrating well by mouth Electrolytes: Monitor and replete as necessary Nutrition: Regular basic diet GI ppx: Not currently indicated (5) No contraindication to deep vein thrombosis (DVT) prophylaxis Status: Acute Plan: Lovenox 40 mg subcutaneous every 24 hours SCDs bilaterally (Jhonathan Temple MD R2) Jhonathan Temple MD R2 Dec 14, 2016 10:30 Samara Bass MD Dec 16, 2016 17:50
[2016-12-14] MEDS ORDERED: IOHEXOL 350 MG/ML 10 ML VIAL (for RAD DIAG) IV ONE (10:41)
--- NOTE | 2016-12-14 11:43 | RADRPT ---
EXAM DATE/TIME: 12/14/2016 10:23 [place] COMPARISON: CT BRAIN W/O CONTRAST, December 07, 2016, 12:08. MRI BRAIN W & W/O CONTRAST, December 13, 2016, 10: 17. INDICATIONS : Abnormal MRI. IV CONTRAST: 75 cc Omnipaque 350 (iohexol) IV RADIATION DOSE: 9.21 CTDIvol (mGy) MEDICAL HISTORY : None SURGICAL HISTORY : None. ENCOUNTER: Subsequent ACUITY: 1 week PAIN SCALE: 5/10 LOCATION: posterior head TECHNIQUE: Volumetric scanning of the paranasal sinuses was performed. Using automated exposure control and adj ustment of the mA and/or kV according to patient size, radiation dose was kept as low as reasonably a chievable to obtain optimal diagnostic quality images. FINDINGS: MAXILLARY SINUSES: Normal. No significant mucosal thickening or fluid. Infundibula are patent. No anomalous inferior orbital ethmoid (Xochilt) air cells. ETHMOID SINUSES: Normal. No significant mucosal thickening or fluid. Fovea ethmoidali and lamina papyracea are symme tric and intact. SPHENOID SINUSES: Relative to prior CT scan 07 December 2016 there is development of opacity in the sphenoid sinus with a central compartment having a somewhat rounded 2 cm area of opacity and right sphenoid compartment some mucoperiosteal thickening. Absence of these on the prior study indicates these do not represent mucous retention cyst or polyp formation. FRONTAL SINUSES: Normal. No significant mucosal thickening or fluid. Frontal recesses are patent. No anomalous fron trent air cells. NASAL FOSSA: Normal. No septal perforation or deviation. No julee bullosa or paradoxical turbinates are identifie d. OTHER: Normal. Limited views of the skull base and orbits are unremarkable. CONCLUSION: Interim change of the sphenoid sinus with a 2 cm rounded soft tissue density in the central middle sp henoid compartment not present on prior study and consistent with mucus or inspissated fluid. Additio patricia there is some mucosal thickening now in the right sphenoid sinus compartment. Omari Moreau MD on December 14, 2016 at 10:58 Board Certified Radiologist. This report was verified electronically.
[2016-12-14] MEDS ORDERED: LEVA500T PO (15:09)
--- NOTE | 2016-12-14 15:10 | HHI.DCPOC ---
Discharge Care Plan Diagnosis: (1) Fever of unknown origin (2) Sphenoid sinusitis Goals to Promote Your Health * To prevent worsening of your condition and complications * To maintain your health at the optimal level Directions to Meet Your Goals Take your medications as prescribed Follow your dietary instruction Follow activity as directed Keep your appointments as scheduled Take your immunizations and boosters as scheduled If your symptoms worsen call your PCP, if no PCP go to Urgent Care Center or Emergency Room Smoking is Dangerous to Your Health. Avoid second hand smoke Call the 24-hour hour crisis hotline for domestic abuse at Jhonathan Temple MD R2 Dec 14, 2016 15:10
[2016-12-14] MEDS ORDERED: ACET325T PO (15:13)
--- NOTE | 2016-12-14 16:30 | HHI.IDPN ---
Subjective Subjective Remarks is a 51 y/o CM who recently returned from [facility] and other places in [facility] where he stayed for approx 3 weeks. He was admitted for fever unknown origin (FUO). Chest pain and cough lead to CT chest which shows pneumonia. Overnight events reviewed. No fevers No night sweats Headache 3 out of 10 intensity off and on. Chest pain on deep inspiration. No vision changes. No rash No joint pains Antibiotics Zosyn IV Vanco IV Doxy Lines Line sites with no e/o infection. Past Medical History amoebiasis giardiasis Allergies: Coded Allergies: No Known Allergies (Unverified , 12/07/16) Objective . Vital Signs Date Time Temp Pulse Resp B/P Pulse Ox O2 Delivery O2 Flow Rate FiO2 12/14/16 12:00 98.4 65 20 124/78 98 12/14/16 10:56 97 Nasal Cannula 21 12/14/16 08:00 98.2 66 24 109/66 94 12/14/16 07:15 Room Air 12/14/16 04:00 98.0 63 16 106/58 95 12/14/16 00:00 98.1 66 18 102/57 96 12/13/16 20:00 98.9 73 19 122/72 97 12/13/16 19:00 Room Air 12/13/16 12/13/16 12/14/16 15:00 23:00 07:00 Intake Total 720 ml 480 ml 420 ml Balance 720 ml 480 ml 420 ml Intake Oral 720 ml 480 ml 420 ml # Voids 4 3 # Bowel Movements 1 0 0 . Laboratory Tests Test 12/13/16 08:25 White Blood Count 7.3 TH/MM3 Red Blood Count 4.76 MIL/MM3 Hemoglobin 14.2 GM/DL Hematocrit 40.8 % Mean Corpuscular Volume 85.7 FL Mean Corpuscular Hemoglobin 29.8 PG Mean Corpuscular Hemoglobin 34.8 % Concent Red Cell Distribution Width 13.1 % Platelet Count 383 TH/MM3 Mean Platelet Volume 7.5 FL Neutrophils (%) (Auto) 74.4 % Lymphocytes (%) (Auto) 14.4 % Monocytes (%) (Auto) 8.4 % Eosinophils (%) (Auto) 2.4 % Basophils (%) (Auto) 0.4 % Neutrophils # (Auto) 5.4 TH/MM3 Lymphocytes # (Auto) 1.1 TH/MM3 Monocytes # (Auto) 0.6 TH/MM3 Eosinophils # (Auto) 0.2 TH/MM3 Basophils # (Auto) 0.0 TH/MM3 CBC Comment DIFF FINAL Differential Comment Laboratory Tests Test 12/13/16 08:25 Sodium Level 139 MEQ/L Potassium Level 3.6 MEQ/L Chloride Level 105 MEQ/L Carbon Dioxide Level 25.0 MEQ/L Anion Gap 9 MEQ/L Blood Urea Nitrogen 8 MG/DL Creatinine 1.02 MG/DL Estimat Glomerular Filtration 78 ML/MIN Rate Random Glucose 92 MG/DL Calcium Level 8.6 MG/DL Total Bilirubin 0.5 MG/DL Aspartate Amino Transf 18 U/L (AST/SGOT) Alanine Aminotransferase 83 U/L (ALT/SGPT) Alkaline Phosphatase 59 U/L Total Protein 6.9 GM/DL Albumin 3.1 GM/DL Microbiology Date/Time Procedure Status Source Growth 12/13/16 03:41 Acid Fast Stain Ordered Sputum Expectorated Sputum Pending 12/13/16 03:41 Mycobacterial Culture Ordered Sputum Expectorated Sputum Pending 12/14/16 03:50 Acid Fast Stain Received Sputum Expectorated Sputum Pending 12/14/16 03:50 Mycobacterial Culture Received Sputum Expectorated Sputum Pending Imaging Last Impressions Chest CT 12/08/16 0000 Signed Impressions: Service Date/Time: Thursday, December 08, 2016 14:58 - CONCLUSION: 1. Consolidative infiltrate in the right lower lobe characteristic of pneumonia. 2. Small right pleural effusion and minimal left pleural effusion. Bean Stevenson MD Head CT 12/07/16 1133 Signed Impressions: Service Date/Time: Wednesday, December 07, 2016 12:08 - CONCLUSION: Unremarkable exam. Bean Stevenson MD Physical Exam GENERAL: This is a well-nourished, well-developed patient, in no apparent distress. SKIN: Scars from prior mosquito bites. No maculopapular rash noted. HEAD: Atraumatic. Normocephalic. No temporal or scalp tenderness. EYES: Pupils equal round and reactive. Extraocular motions intact. No scleral icterus. No injection or drainage. ENT: Nose without bleeding, purulent drainage or septal hematoma. Throat without erythema, tonsillar hypertrophy or exudate. Uvula midline. Airway patent. NECK: Trachea midline. Supple, nontender, no meningeal signs. CARDIOVASCULAR: Heart sounds audible. No murmur appreciated. RESPIRATORY: Right basilar crackles. Breath sounds equal bilaterally. GASTROINTESTINAL: Abdomen soft, non-tender, nondistended. MUSCULOSKELETAL: Extremities without clubbing, cyanosis, or edema. No joint tenderness, effusion, or edema noted. No calf tenderness. Negative Homans sign bilaterally. NEUROLOGICAL: Awake and alert. Grossly nonfocal. Psych cooperative IV line sites with no evidence of infection. Assessment & Plan Remarks Pneumonia Likely CAP based on workup so far. Other DDx: Atypical vs TB or Fungal infection). DDX:: Fungal (ParaCocci, Cocci and other fungal lung infections: histo, blasto, crypto, cocci) DDX: TB DDX: Parasitic lung diseases like Strongyloidosis, Visceral leishmaniasis. Headaches: ? sphenoid sinusitis vs sphenoid sinus abscess/osteomyelitis. Recs: Continue Zosyn IV continue Levaquin oral (covers atypical and mouth kat) plan on additional 5 days. Sami pt and spouse: results of MRI brain and CT brain. They would like to talk to . sami primary team: arrangements being made to transfer to [facility]. I will be available prn. Lori Joe MD Dec 14, 2016 16:30
[2016-12-14 17:00] LABS: M. TUBERCULOSIS PCR NOT DETECTED (NOT DETECT)
[2016-12-14] MEDS ORDERED: diphenhydrAMINE HCL 25 MG CAP PO PRN (19:15)
--- NOTE | 2016-12-14 19:20 | HHI.PR ---
Subjective Remarks 51 YOWM with Fever, recent travel to [facility], Right lung infilt Had Bronch No erythema or secretions no Endobronchial lesion bronchial cultures, AFB fungal smears neg Fever improved Still has headache had MRI sinuses, being tr to [facility] for possible sphenoid sius infection/abcess Objective Vital Signs Vital Signs Date Time Temp Pulse Resp B/P Pulse Ox O2 Delivery O2 Flow Rate FiO2 12/14/16 16:00 98.1 74 20 126/78 95 12/14/16 12:00 98.4 65 20 124/78 98 12/14/16 10:56 97 Nasal Cannula 21 12/14/16 08:00 98.2 66 24 109/66 94 12/14/16 07:15 Room Air 12/14/16 04:00 98.0 63 16 106/58 95 12/14/16 00:00 98.1 66 18 102/57 96 12/13/16 20:00 98.9 73 19 122/72 97 I/O 12/13/16 12/13/16 12/13/16 12/14/16 12/14/16 12/14/16 07:00 15:00 23:00 07:00 15:00 23:00 Intake Total 420 ml 720 ml 480 ml 420 ml Output Total 800 ml Balance -380 ml 720 ml 480 ml 420 ml Intake Oral 420 ml 720 ml 480 ml 420 ml Output Urine Total 800 ml # Voids 4 3 # Bowel Movements 0 1 0 0 Result Diagram: 12/13/1682412/13/16824 Objective Remarks GENERAL: WBWn WM, NAD SKIN: Warm and dry. HEAD: Normocephalic. EYES: No scleral icterus. No injection or drainage. NECK: Supple, trachea midline. No JVD or lymphadenopathy. CARDIOVASCULAR: Regular rate and rhythm without murmurs, gallops, or rubs. RESPIRATORY: Breath sounds equal bilaterally. No accessory muscle use. GASTROINTESTINAL: Abdomen soft, non-tender, nondistended. MUSCULOSKELETAL: No cyanosis, or edema. BACK: Nontender without obvious deformity. No CVA tenderness. A/P Assessment and Plan Right Lung Infilterates / etiology Fever recent travel to [facility] S/P Bronch PLAN: Abx vanco, Zosyn and Doxi per ID DW at BS Stable from pulm standpoint Plans for tr to [facility] Navdeep Rahman MD Dec 14, 2016 19:20
[2016-12-14] MEDS ORDERED: DEXAMETHASONE SOD PHOS 20 MG/5 ML VIAL IV PUSH ONE ×2 (20:45→21:00)
[2016-12-14] MEDS ORDERED: diphenhydrAMINE HCL 50 MG/ML VIAL IVP ONE ×2 (20:45→21:00)
[2016-12-14] MEDS ORDERED: METOCLOPRAMIDE HCL 10 MG/2 ML VIAL IVP ONE ×2 (20:45→21:00)
[2016-12-15] VITALS: BP 100/57; PULSE 71; RESP 16; TEMP 98.8; O2SAT 93
[2016-12-15 04:00] VITALS: BP 101/61; PULSE 79; RESP 17; TEMP 98.1; O2SAT 95
[2016-12-15] MEDS: PIPERACIL-TAZO 3.375 GM PREMIX 50 ML IV SCH ×4 (04:09→21:00)
[2016-12-15 07:18] LABS: AUTOMATED NEUTROPHIL # 5.1 TH/MM3 (1.8-7.7); BASOPHIL % 0.3 % (0.0-2.0); EOSINOPHIL % 0.1 % (0.0-4.0); HEMATOCRIT 45.8 % (39.0-51.0); LYMPH % 14.9 % (9.0-44.0); LYMPHOCYTE # 0.9 TH/MM3 (1.0-4.8); MEAN CELL VOLUME 86.9 FL (80.0-100.0); MEAN CORPUSCULAR HGB CONC 33.3 % (32.0-36.0); MONO % 3.2 % (0.0-8.0); NEUT % 81.5 % (16.0-70.0); PLATELET COUNT 360 TH/MM3 (150-450); RED BLOOD COUNT 5.27 MIL/MM3 (4.50-5.90); RED CELL DISTRIBUTION WIDTH 13.6 % (11.6-17.2); WHITE BLOOD COUNT 6.2 TH/MM3 (4.0-11.0)
--- NOTE | 2016-12-15 07:21 | HHI.FPPN ---
Subjective Remarks Patient is doing well this morning. He had a headache overnights which resolved with the cocktail of Decadron, Reglan, and Benadryl. He denies chest pain, shortness of breath, fever, chills, nausea, vomiting, or abdominal pain. He is waiting on being transferred to [facility] in [place] once a bed is available over there. (RidgeoShelley MD R1) Objective Vitals Vital Signs Date Time Temp Pulse Resp B/P Pulse Ox O2 Delivery O2 Flow Rate FiO2 12/15/16 04:00 98.1 79 17 101/61 95 12/15/16 00:00 98.8 71 16 100/57 93 12/14/16 20:00 98.2 69 18 115/77 97 12/14/16 20:00 Room Air 12/14/16 16:00 98.1 74 20 126/78 95 12/14/16 12:00 98.4 65 20 124/78 98 12/14/16 10:56 97 Nasal Cannula 21 12/14/16 08:00 98.2 66 24 109/66 94 I/O 12/14/16 12/14/16 12/14/16 12/15/16 12/15/16 12/15/16 07:00 15:00 23:00 07:00 15:00 23:00 Intake Total 420 ml 720 ml Balance 420 ml 720 ml Intake Oral 420 ml 720 ml # Voids 3 2 # Bowel Movements 0 0 (Shelley Ware MD R1) Result Diagram: 12/13/1682412/13/1625 Objective Remarks GENERAL: No acute distress, nontoxic SKIN: Warm and dry. No petechia or purpura on exam. No rash. HEAD: Atraumatic. Normocephalic. No scleral icterus. No injection or drainage. No nasal bleeding or discharge. Mucous membranes pink and moist. CARDIOVASCULAR: Regular rate and rhythm. No murmur appreciated. RESPIRATORY: No accessory muscle use. Clear to auscultation bilaterally. GASTROINTESTINAL: Abdomen soft, non-tender, nondistended. MUSCULOSKELETAL: No obvious deformities. No clubbing. No cyanosis. No erythema or edema of legs, no calf tenderness. NEUROLOGICAL: Awake and alert. No obvious cranial nerve deficits. Motor grossly within normal limits. Normal speech. PSYCHIATRIC: Appropriate mood and affect; insight and judgment normal. BACK: Normal in appearance. No erythema, warmth, tenderness, fluctuance. (Shelley Ware MD R1) A/P Assessment and Plan 51-year-old man with no significant past medical history except for significant innumerable bug bites acquired in [facility], presents with fever of unknown origin up to a high of 103F, neck, back, joint pain, cough, chills, night sweats. Differential diagnosis includes pneumonia, URI, sinus infection, arthropod borne diseases, food and waterborne diseases, other infections, autoimmune etiologies, allergic/immune etiologies. Admitted for supportive treatment, infectious disease consult. Discharge Planning Plan is to discharge patient to [facility] in [facility] today once medical bed is available. Plan to discharge patient on Augmentin 875 mg by mouth twice a day for 2 weeks when cleared by neurology and when we have the final lung pathology. Recommend follow-up in [address] Christal Araiza to follow-up on all tests and possible repeat MRI of brain. Follow up with neurology as well. Recommend follow up in [address] Valle if pt continues to have headache. Will discuss with Dr. Temple PGY [address] Bass (Shelley Ware MD R1) Attending Attestation Patient seen and examined. Case reviewed and discussed Agree with plan of care as discussed with me and documented in the resident note. (Samara Bass MD) Problem List: (1) Fever of unknown origin Status: Acute Plan: 51-year-old man with no significant past medical history the history significant for innumerable bug bites acquired [facility] presented with fever of unknown origin up to a high of 103F, neck, back, joint pain, cough, chills, night sweats. Differential diagnosis includes pneumonia, sinus infection , URI, arthropod borne diseases, food and waterborne diseases, other infections , autoimmune etiologies, allergic/immune etiologies. -Patient currently being managed by infectious disease, pulmonology, and ENT -CT sinuses performed on 12/14 was significant for a 2 cm rounded soft tissue density in the central middle sphenoid compartment not present on prior study and consistent with mucosal inspissated fluid. Also present is some mucosal thickening in the right sphenoid sinus compartment. Current Antibiotics: Zosyn 3.375 g IV every 6 hours (12/09 - present) Levaquin 500mg po qd on 12/13 Pain medications: Tylenol 650 mg by mouth every 4 hours when necessary for pain, temperature, headache Motrin 400 mg by mouth every 4 hours when necessary for muscle pain Work up: Head CT 12/07 unremarkable Patient had lumbar puncture in the emergency department, which was not concerning for meningitis. CSF cultures negative Malaria smear negative No leukocytosis Morganza spotted fever, rickettsia, typhus fever, pending --Zika virus PCR not detected CSF culture with no growth to date, no fungal elements seen Blood culture with no growth to date Stool cryptosporidium negative and Giardia negative, rare WBCs Hepatitis profile negative RPR nonreactive HIV negative UDS negative Histoplasma antigen serum and urine, cryptococcal antigen serum, aspergillosis antibody IgG, fungal antibody serum Bronchoscopy results and cultures thus far unremarkable Influenza A/B antigen negative Legionella antigen negative Strep pneumo antigen negative Pending: -Fungal culture of bronchial washings right lower lobe -Call bacterial culture of bronchial washings right lower lobe -Acid-fast stain of expectorated sputum on 12/14 -Mycobacterial culture of expectorated sputum on 12/14 (2) Pneumonia Status: Acute Plan: Chest CT suggestive of pneumonia Urine Legionella and strep pneumo antigens negative -Antibiotics as above Pulmonology consulted, Dr. Rahman, appreciate recommendations and intervention Bronchoscopy results unremarkable Imaging: Chest CT from 12/08/16: Significant for consolidative infiltrate in the right lower lobe characteristic of pneumonia. Small right pleural effusion and minimal left pleural effusion. (3) Sphenoid sinusitis Status: Acute Plan: -Brain MRI from 12/13/16 showed sphenoid sinus disease with hemorrhagic or complex fluid seen in the sphenoid sinus -CT sinuses on 12/14 confirmed the finding above described as a 2 cm rounded soft tissue density in the central middle sphenoid compartment -Based on ENT specialist Dr. Ford's recommendations, patient will be transferred to [facility] in [facility] for further evaluation and management (4) Nutrition, metabolism, and development symptoms Status: Acute Plan: Fluids: Oral fluids only Electrolytes: Monitor and replete as necessary Nutrition: Regular basic diet GI ppx: Not currently indicated (5) No contraindication to deep vein thrombosis (DVT) prophylaxis Status: Acute Plan: Lovenox 40 mg subcutaneous every 24 hours SCDs bilaterally (Shelley Ware MD R1) Shelley Ware MD R1 Dec 15, 2016 07:21 Samara Bass MD Dec 16, 2016 17:50
[2016-12-15 07:34] LABS: HEMO FLAGS AUTO DIFF
[2016-12-15 07:54] LABS: BICARBONATE 23.1 MEQ/L (21.0-32.0); POTASSIUM 4.2 MEQ/L (3.5-5.1)
[2016-12-15 08:00] VITALS: BP 113/58; PULSE 78; RESP 20; TEMP 98.2; O2SAT 94
[2016-12-15 08:26] LABS: BANDS 6 % (0-6); NEUTROPHIL # MANUAL DIFF 5.2 TH/MM3 (1.8-7.7); PLATELET ESTIMATE SMEAR NORMAL (NORMAL); PLATELET MORPHOLOGY NORMAL (NORMAL); POLYS (SEG NEUTROPHILS) 78 % (16-70); SCAN/DIFF FINAL DIFF MANUAL; WBC DIFF SAMPLE 100
[2016-12-15 08:50] VITALS: O2SAT 98
[2016-12-15] MEDS: SODIUM CHLORIDE 0.9% FLUSH 5 ML FLUSH FLUSH SCH ×2 (09:00→19:56)
[2016-12-15] MEDS: TOPIRAMATE 25 MG TAB PO SCH (09:00)
[2016-12-15] MEDS: LEVOFLOXACIN 500 MG TAB PO SCH (09:07)
--- NOTE | 2016-12-15 10:46 | HHI.DS ---
Discharge Summary Admission Date Dec 09, 2016 at 15:42 Discharge Date: Dec 16, 2016 Admitting Diagnosis fever of unknown origin (1) Fever of unknown origin Diagnosis: Principal (2) Pneumonia Diagnosis: Principal (3) Sphenoid sinusitis Diagnosis: [facility] Consult[facility] Infectious diseases ENT Neurology Brief History Patient is a 51-year-old man with a 7 day history of fever. He reports associated symptoms of neck, back, joint pain, and cough. He was in [facility] for about a month prior to presenting to the emergency department. He and his were there just visiting for vacation. The [place]. Then during their 2nd week, they traveled [place], through [place]. In a marshy climate, they went to dinner without bug-spray, got bitten by mosquitos, then started using bug- spray. Pt used alcohol and calamine lotion on bug bites, which seemed to resolve within 5-7 days. [place] then went [place]. Last Wednesday, patient reports that his first symptom was lethargy, and that he felt like laying around all day; he noted a slight fever. Wednesday night, patient reports one episode of foul-smelling loose stool (again on , since then constipated). At that time, he started getting headache, worse fever. On Wednesday , the fever got bad, but they were unable take his temperature. On Wednesday, he experienced sweating, chills, soaked through his clothes and sheets, while feeling freezing. On Wednesday, he went to a local hospital in [facility], where they noted a fever of 103F, but an otherwise negative workup: They noted neutrophils of 75%, lymphocytes 12%, monocytes of 13%. Wednesday and Wednesday, patient experienced more of the same with fever, aches, and pains. Patient denies any rash. He reports that he has had a continuous headache since Wednesday. Patient endorses joint pain but no swelling. Patient reports headache behind his eyes, cervical spine ache. He developed a cough with deep respirations, which he attributes to some pleuritic chest pain. He took Tylenol for his symptoms, which helps a little. CBC/BMP: 12/15/16 0555 12/15/16 0555 Significant Findings Laboratory Tests Test 12/13/16 12/15/16 08:25 05:55 Neutrophils (%) (Auto) 74.4 % 81.5 % (16.0-70.0) (16.0-70.0) Monocytes (%) (Auto) 8.4 % (0.0-8.0) Estimat Glomerular Filtration 78 ML/MIN (>89) 69 ML/MIN (>89) Rate Alanine Aminotransferase 83 U/L (12-78) (ALT/SGPT) Albumin 3.1 GM/DL (3.4-5.0) Lymphocytes # (Auto) 0.9 TH/MM3 (1.0-4.8) Neutrophils % (Manual) 78 % (16-70) Random Glucose 135 MG/DL (74-106) PE at Discharge GENERAL: No acute distress, nontoxic SKIN: Warm and dry. No petechia or purpura on exam. No rash. HEAD: Atraumatic. Normocephalic. No scleral icterus. No injection or drainage. No nasal bleeding or discharge. Mucous membranes pink and moist. CARDIOVASCULAR: Regular rate and rhythm. No murmur appreciated. RESPIRATORY: No accessory muscle use. Clear to auscultation bilaterally. GASTROINTESTINAL: Abdomen soft, non-tender, nondistended. MUSCULOSKELETAL: No obvious deformities. No clubbing. No cyanosis. No erythema or edema of legs, no calf tenderness. NEUROLOGICAL: Awake and alert. No obvious cranial nerve deficits. Motor grossly within normal limits. Normal speech. PSYCHIATRIC: Appropriate mood and affect; insight and judgment normal. BACK: Normal in appearance. No erythema, warmth, tenderness, fluctuance. Hospital Course Mr. Roy was admitted on 12/07/16 for fever of unknown origin. He complained of headache, which was responsive to Reglan, Benadryl, Decadron cocktail in ED. ID was consulted and started him on doxycycline for possible arthropod-borne disease. Infectious disease initiated extensive workup, which have been negative so far. ID also ordered a CT of his chest, which showed a pneumonia. Pt received one dose of Levaquin IV on 12/08 and then was started on empiric treatment with IV Vancomycin and Zosyn. Vancomycin was discontinued and Levaquin PO was started on 12/13; Zosyn IV was also continued throughout his admission. Pulmonology was consulted and performed a bronchoscopy, which was grossly and pathologically normal. He continued to complain of headache, so neurology was consulted, who ordered an MRI of his head that showed sphenoid sinus disease with hemorrhage vs complex fluid collection. CT of his sinuses confirmed the sphenoid sinus disease and showed a 2cm collection that was not seen in prior studies. The ENT specialist on his case decided to transfer Mr. Roy to [facility] in [place] for further evaluation and management. However, [facility] in [place] did not have a bed available for him for at least a week. Fortunately, the patient's called the [facility] skull base center in [place] and secured a next day appointment for 12/[address] scan of his sinuses was repeated (performed on 12/14/16 ) to see if the previously discovered 2 cm rounded soft tissue density in the central medial sphenoid compartment had resolved or reduced in size. The second CT sinuses scan was read as unchanged with stable sphenoid abnormalities. The radiologist who interpreted the second CT scan said that he did not suspect osteomyelitis or infection in his sinuses. The abnormality in the sphenoid sinus is more consistent with a mucous collection. Based on this result, Dr. Joe, the infectious disease specialist, agreed to Mr. Roy's discharge on oral Augmentin 875 mg twice a day for 7 days with close follow-up with ENT at the [facility] as well as follow-up with Dr. Araiza, infectious disease specialist, in 2 weeks. He was discharged home in stable condition. Pt Condition on Discharge: Stable Discharge Disposition: Discharge Home Discharge Instructions DIET: Follow Instructions for: As Tolerated, No Restrictions Activities you can perform: Regular-No Restrictions Follow up Referrals: Appointment for Follow Up - 10 Days @ [facility] with Christal Araiza MD Ear Nose Throat - Next Day PCP Follow-up New Orders: X-RAY CHEST PA & LAT - 2 Weeks New Medications: Amoxicillin-Clavulanate (Augmentin) 875-125 mg Tab 875 MG PO BID not for use in CrCl <30 ml/min. Infection #14 Ref 0 TAB Acetaminophen (Acetaminophen) 325 Mg Tab 650 MG PO Q4H PRN TEMP>101F, PAIN 1-10, HEADACHE #28 TAB Levofloxacin (Levaquin) 500 Mg Tab 500 MG PO DAILY #7 TAB Shelley Ware MD R1 Dec 15, 2016 10:46
[2016-12-15] MEDS: ACETAMINOPHEN 325 MG TAB PO PRN ×2 (14:22→19:53)
--- NOTE | 2016-12-15 19:30 | HHI.PR ---
Subjective Remarks 51 YOWM with Fever, recent travel to [facility], Right lung infilt Had Bronch No erythema or secretions no Endobronchial lesion bronchial cultures, AFB fungal smears neg had MRI sinuses, being tr to [facility] for possible sphenoid sius infection/abcess Head ache better after pain meds cocktail Objective Vital Signs Vital Signs Date Time Temp Pulse Resp B/P Pulse Ox O2 Delivery O2 Flow Rate FiO2 12/15/16 08:50 98 Nasal Cannula 12/15/16 08:00 98.2 78 20 113/58 94 12/15/16 07:15 Room Air 2.00 21 12/15/16 04:00 98.1 79 17 101/61 95 12/15/16 00:00 98.8 71 16 100/57 93 12/14/16 20:00 98.2 69 18 115/77 97 12/14/16 20:00 Room Air I/O 12/14/16 12/14/16 12/14/16 12/15/16 12/15/16 12/15/16 07:00 15:00 23:00 07:00 15:00 23:00 Intake Total 420 ml 720 ml Balance 420 ml 720 ml Intake Oral 420 ml 720 ml # Voids 3 2 # Bowel Movements 0 0 Result Diagram: 12/15/16 0555 12/15/16 0555 Objective Remarks GENERAL: WBWn WM, NAD SKIN: Warm and dry. HEAD: Normocephalic. EYES: No scleral icterus. No injection or drainage. NECK: Supple, trachea midline. No JVD or lymphadenopathy. CARDIOVASCULAR: Regular rate and rhythm without murmurs, gallops, or rubs. RESPIRATORY: Breath sounds equal bilaterally. No accessory muscle use. GASTROINTESTINAL: Abdomen soft, non-tender, nondistended. MUSCULOSKELETAL: No cyanosis, or edema. BACK: Nontender without obvious deformity. No CVA tenderness. A/P Assessment and Plan Right Lung Infilterates / etiology Fever recent travel to [facility] S/P Bronch PLAN: Abx vanco, Zosyn and Doxi per ID DW at [facility] Stable from pulm standpoint Plans for tr to [facility] Navdeep Rahman MD Dec 15, 2016 19:30
[2016-12-15 20:00] VITALS: BP 116/69; PULSE 78; RESP 18; TEMP 97.9; O2SAT 97
[2016-12-16] MEDS: PIPERACIL-TAZO 3.375 GM PREMIX 50 ML IV SCH ×3 (03:35→16:43)
[2016-12-16 04:00] VITALS: BP 98/53; PULSE 72; RESP 18; TEMP 98; O2SAT 96
[2016-12-16 08:00] VITALS: BP 105/61; PULSE 71; RESP 16; TEMP 98.2; O2SAT 97
[2016-12-16] MEDS: TOPIRAMATE 25 MG TAB PO SCH (09:00)
[2016-12-16 10:02] VITALS: O2SAT 96
[2016-12-16] MEDS: LEVOFLOXACIN 500 MG TAB PO SCH (10:12)
[2016-12-16] MEDS: SODIUM CHLORIDE 0.9% FLUSH 5 ML FLUSH FLUSH SCH (10:17)
[2016-12-16 12:00] VITALS: BP 110/74; PULSE 77; RESP 16; TEMP 98; O2SAT 95
--- NOTE | 2016-12-16 13:00 | HHI.FPPN ---
Subjective Remarks Patient is doing much better this morning. He reports that the headaches are not occurring as often and when they do, they are well managed with Tylenol. He denies fever, chest pain, shortness of breath, chills, sweats. His eating and drinking normally. We had a long discussion about [facility] in [place] not having a bed available for him for the next 4-5 days at minimum. We informed him that Dr. Ford is okay with discharging him home and having him follow up with him in clinic next week. The patient and his decided that they would like a second opinion and asked if we could work on a transfer to [facility] in [place]. Later in the afternoon, we were informed that the patient's called the [facility] skull base center in [place] and secured an appointment for tomorrow 12/17 at 10 AM. We agreed to repeat a CT scan of his sinuses (performed on 12/14/16) to see if the previously discovered 2 cm rounded soft tissue density in the central medial sphenoid compartment had resolved for reduced in size. The second CT sinuses scan performed today was read as unchanged with stable sphenoid abnormalities. I spoke with Dr. Omari Moreau, the radiologist who interpreted the second CT scan and he did not suspect osteomyelitis or infection in his sinuses. The abnormality in the sphenoid sinus is more consistent with a mucous collection. My discussion with Dr. Moreau was relayed to Dr. Joe, the infectious disease specialist, who agreed to Mr. Roy's discharge on oral Augmentin 875 mg twice a day for 7 days with close follow-up with ENT at the [facility] as well as follow-up with Dr. Araiza in 2 weeks. (Eko,Shelley Hernandez MD R1) Objective Vitals Vital Signs Date Time Temp Pulse Resp B/P Pulse Ox O2 Delivery O2 Flow Rate FiO2 12/16/16 10:02 96 Nasal Cannula 12/16/16 08:00 98.2 71 16 105/61 97 12/16/16 04:00 98.0 72 18 98/53 96 12/15/16 20:00 97.9 78 18 116/69 97 12/15/16 20:00 Room Air I/O 12/15/16 12/15/16 12/15/16 12/16/16 12/16/16 12/16/16 07:00 15:00 23:00 07:00 15:00 23:00 Intake Total 480 ml 240 ml Balance 480 ml 240 ml Intake Oral 480 ml 240 ml # Voids 2 2 # Bowel Movements 0 (Eko,Shelley U R1) Result Diagram: 12/15/16 0555 12/15/16 0555 Imaging Last Impressions Sinuses CT 12/16/16 0000 Signed Impressions: Service Date/Time: Friday, December 16, 2016 15:33 - CONCLUSION: CT scan of sinus unchanged sphenoid abnormalities are stable. Omari Moreau MD Head Magnetic Resonance Angiography 12/13/16 0000 Signed Impressions: Service Date/Time: Tuesday, December 13, 2016 10:17 - CONCLUSION: MRA of the brain within normal limits. Fam Bella MD Brain MRI 12/13/16 0000 Signed Impressions: Service Date/Time: Tuesday, December 13, 2016 10:17 - CONCLUSION: 1. Sphenoid sinus disease with hemorrhagic or complex fluid seen in the sphenoid sinus. This finding is new compared to the prior CT of 12/07/2016. 2. no acute intracranial findings. Fam Bella MD Chest X-Ray 12/12/16 0000 Signed Impressions: Service Date/Time: Monday, December 12, 2016 11:09 - CONCLUSION: Decreasing right base infiltrate and left base atelectasis. Hemanth Baker MD Soft Tissue Ultrasound 12/11/16 0000 Signed Impressions: Service Date/Time: Sunday, December 11, 2016 18:01 - CONCLUSION: No mass or fluid collection is seen in the lower back in the area of interest. Hemanth Freeman MD Chest CT 12/08/16 0000 Signed Impressions: Service Date/Time: Thursday, December 08, 2016 14:58 - CONCLUSION: 1. Consolidative infiltrate in the right lower lobe characteristic of pneumonia. 2. Small right pleural effusion and minimal left pleural effusion. Bean Stevenson MD Head CT 12/07/16 1133 Signed Impressions: Service Date/Time: Wednesday, December 07, 2016 12:08 - CONCLUSION: Unremarkable exam. Bean Stevenson MD Objective Remarks GENERAL: No acute distress, nontoxic SKIN: Warm and dry. No petechia or purpura on exam. No rash. HEAD: Atraumatic. Normocephalic. No scleral icterus. No injection or drainage. No nasal bleeding or discharge. Mucous membranes pink and moist. CARDIOVASCULAR: Regular rate and rhythm. No murmur appreciated. RESPIRATORY: No accessory muscle use. Clear to auscultation bilaterally. GASTROINTESTINAL: Abdomen soft, non-tender, nondistended. MUSCULOSKELETAL: No obvious deformities. No clubbing. No cyanosis. No erythema or edema of legs, no calf tenderness. NEUROLOGICAL: Awake and alert. No obvious cranial nerve deficits. Motor grossly within normal limits. Normal speech. PSYCHIATRIC: Appropriate mood and affect; insight and judgment normal. BACK: Normal in appearance. No erythema, warmth, tenderness, fluctuance. (Shelley Ware MD R1) A/P Assessment and Plan 51-year-old man with no significant past medical history except for significant innumerable bug bites acquired in [facility], presents with fever of unknown origin up to a high of 103F, neck, back, joint pain, cough, chills, night sweats. Differential diagnosis includes pneumonia, URI, sinus infection, arthropod borne diseases, food and waterborne diseases, other infections, autoimmune etiologies, allergic/immune etiologies. Admitted for supportive treatment, infectious disease consult. Seen and examined with Dr. Diaz and Dr. Bass Discharge Planning Patient was discharged home today to follow up with ENT at the [facility] skull base center in [place]. (Shelley Ware MD R1) Attending Attestation Patient seen and examined. Case reviewed and discussed with resident team, ID physician Agree with plan of care as discussed with me and documented in the resident note. Patient has scheduled appt with ENT/skull-based surgeon, DONNIE INMAN tomorrow morning. All records will be sent for that referral. (Samara Bass MD) Problem List: (1) Fever of unknown origin Status: Acute Plan: -Afebrile for at least 48 hours -CT sinuses performed on 12/14 was significant for a 2 cm rounded soft tissue density in the central middle sphenoid compartment not present on prior study and consistent with mucosal inspissated fluid. Also present is some mucosal thickening in the right sphenoid sinus compartment. -Repeat CT sinuses on 12/16 unchanged from previous -Antibiotic plan below (2) Pneumonia Status: Acute Plan: -Chest CT suggestive of pneumonia Urine Legionella and strep pneumo antigens negative -On Zosyn IV and Levaquin by mouth Bronchoscopy performed by pulmonology - results unremarkable (3) Sphenoid sinusitis Status: Acute Plan: Brain MRI from 12/13/16 showed sphenoid sinus disease with hemorrhagic or complex fluid seen in the sphenoid sinus -CT sinuses on 12/14 confirmed the finding above described as a 2 cm rounded soft tissue density in the central middle sphenoid compartment -Initial plan was to transfer patient to [facility] in [facility] for further evaluation and management, however there are no beds available so patient will be discharged home to follow up at the skull base center at the [facility] in [place] (4) FEN/DVT PPX/GI PPX Status: Acute Plan: -Fluids: Oral fluids only -Electrolytes: Monitor and replete as necessary -Nutrition: Regular basic diet -GI ppx: Not currently indicated -Lovenox 40 mg subcutaneous every 24 hours (Shelley Ware MD R1) Shelley Ware MD R1 Dec 16, 2016 13:00 Samara Bass MD Dec 23, 2016 15:40
[2016-12-16] MEDS: ACETAMINOPHEN 325 MG TAB PO PRN (15:27)
[2016-12-16 16:00] VITALS: BP 117/73; PULSE 72; RESP 16; TEMP 98.4; O2SAT 97
--- NOTE | 2016-12-16 16:21 | RADRPT ---
EXAM DATE/TIME: 12/16/2016 15:33 [facility] COMPARISON: CT BRAIN W/O CONTRAST, December 07, 2016, 12:08. CT SINUSES W CONTRAST, December 14, 2016, 10:23. INDICATIONS : Re-evaluate sphenoid sinus abnormality. RADIATION DOSE: 9.21 CTDIvol (mGy) MEDICAL HISTORY : None SURGICAL HISTORY : None. ENCOUNTER: Subsequent ACUITY: 1 week PAIN SCORE: 0/10 LOCATION: cranial TECHNIQUE: Volumetric scanning of the paranasal sinuses was performed. Using automated exposure control and adj ustment of the mA and/or kV according to patient size, radiation dose was kept as low as reasonably a chievable to obtain optimal diagnostic quality images. FINDINGS: The. abnormality the sphenoid sinus is unchanged. Mucoperiosteal thickening is noted in the right com partment in the middle central compartment reveals 2 cm area of soft tissue density in the coronal vi ew rounded at its cephalad portion. This was not present on CT scan earlier this same year and repres ents again mucosal thickening and probably mucus inspissation fluid in the sphenoid sinus. CONCLUSION: CT scan of sinus unchanged sphenoid abnormalities are stable. Omari Moreau MD on December 16, 2016 at 16:17 Board Certified Radiologist. This report was verified electronically.
[2016-12-16] MEDS ORDERED: AUGM875T PO (17:53)
[2016-12-16] MEDS ORDERED: AMOXICILLIN/CLAVULANATE K 875 MG TAB PO ONE (18:15)
--- NOTE | 2016-12-23 15:45 | HHI.PR ---
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 Spoke with ID, Dr. Joe regarding results as well. Results from state lab should result in 3-4 days. I did call Mr. Roy regarding the AFB positivity. He was informed of the results and I told him I would notify him as soon as I heard further. He reports he continues to clinically improve. He stated his breathing was better, headaches improving. He had seen skull-based surgeon last week, is going for repeat CT scan tomorrow for determination of whether or not surgical intervention is warranted. Patient did note that he saw VALENTIN Huff yesterday and underwent testing for Chikungunya Virus based on her recommendations. He will inform me of results once available. Samara Bass MD Dec 23, 2016 15:45
== END 2016-12-16 19:05 | disposition home or self-care (01) | DRG 195 ==
LOC: NEPC 09:04 → NEDA 17:04 → NEDH 21:08 → NEPGCP 21:47 → OBSVTOIN 12-09 15:42 → N04A 12-09 21:24
PROVIDERS: ADMIT Family Medicine; ATTEND Family Medicine
PROC: 009U3ZX Drainage of Spinal Canal, Percutaneous Approach, Diagnostic (ICD-10-PCS; principal; 2016-12-07)
PROC: 0BB68ZX Excision of Right Lower Lobe Bronchus, Via Natural or Artificial Opening Endoscopic, Diagnostic (ICD-10-PCS; 2016-12-10)
DX: J15.9 Unspecified bacterial pneumonia (principal); E83.51 Hypocalcemia; J32.3 Chronic sphenoidal sinusitis; R73.9 Hyperglycemia, unspecified; E87.6 Hypokalemia; W57.XXXA Bitten or stung by nonvenomous insect and other nonvenomous arthropods, initial encounter; Z86.19 Personal history of other infectious and parasitic diseases
CPT/HCPCS: 62270; 70450; 70486; 70487; 70544; 70553; 71010; 71020; 71260; 76937; 76999; 80048; 80053; 80074; 80307; 81001; 82550; 82945; 84157; 84484; 85007; 85025; 85027; 85060; 85610; 85730; 86140; 86403; 86592; 86606; 86651; 86652; 86653; 86654; 86703; 86757; 87015; 87040; 87070; 87102; 87103; 87116; 87205; 87206; 87207; 87252; 87254; 87328; 87329; 87385; 87449; 87491; 87556; 87591; 87798; 87804; 88305; 88312; 89051; 93005; 93306; 94150; 96361; 96374; 96375; A9579; G0378; G8987-GP; G8988-GP; J0171; J1100; J1200; J1650; J1956; J2250; J2405; J2543; J2765; J3010; J3370; J7030; J7040; Q9967